=== PATIENT | male | born 1980 | race Caucasian/White ===

== ENCOUNTER 2017-03-09 17:18 | Emergency (ER) | payer MEDICAID, OTHER ==
[~2017-03-09] VITALS: Ht 190.5 cm; Wt 95.0 kg
[~2017-03-09 17:18] MED LIST: DICL50 PO; GABA300C3 PO; ROBA750T3 PO
[2017-03-09 17:20] VITALS: BP 130/82; PULSE 84; RESP 20; TEMP 98.7; O2SAT 99
--- NOTE | 2017-03-09 17:50 | PD ---
HPI Chief Complaint: Eye Problems/Injury Time Seen by Provider: 17:44 Travel History International Travel<30 days: No Contact w/Intl Traveler<30days: No Traveled to known affect area: No History of Present Illness HPI Patient comes in complaining of left upper eyelid pain and swelling began around 11:00 this morning. Patient denies any known injury or foreign body sensation. Patient states he tried using [id number] eyedrops/irrigation has been rubbing his eyelid a lot. Describes pain as a burning like sensation in his upper eyelid without radiation. Patient reports intermittent blurriness in his vision. Pain is worse with palpation. Patient also has concerns over pain in his right hand palmar aspect proximally that he awoke with this morning. Patient describes pain as a "weird pain" that is worse with making a fist with his right hand. Denies any radiation of pain. Denies any known injury. Denies any fevers. Denies any numbness or tingling. PFSH Past Medical History Blood Disorders: No Cancer: No Cardiovascular Problems: No Diabetes: No Diminished Hearing: No Endocrine: No Gastrointestinal Disorders: No Genitourinary: No Hepatitis: Yes (HEP C - completed Interferon Tx through per pt.) Hiatal Hernia: No Hypertension: Yes Immune Disorder: No Musculoskeletal: No Neurologic: No Psychiatric: No Reproductive: No Respiratory: No Thyroid Disease: No Past Surgical History Abdominal Surgery: Yes (HERNIA REPAIR) Cardiac Surgery: No Ear Surgery: No Endocrine Surgery: No Eye Surgery: No Genitourinary Surgery: Yes (TESTICULAR TORSION REPAIR - age 14) Gynecologic Surgery: No Neurologic Surgery: No Oral Surgery: No Thoracic Surgery: No Other Surgery: Yes Social History Alcohol Use: No Tobacco Use: Yes (1 PPD) Substance Use: No (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 SKIN: Focused skin assessment warm and dry. HEAD: Atraumatic. Normocephalic. EYES: Pupils equal and round. EOMI. No scleral icterus. No injection or drainage. Mild edema and erythematous left upper eyelid. Eyelid was inverted there is no foreign body. There is no abscess. ENT: No nasal bleeding or discharge. Mucous membranes pink and moist. NECK: Trachea midline. Supple. No nuclear rigidity. CARDIOVASCULAR: Radial pulses 2+ contact, equal bilaterally. Capillary refill less than 2 seconds. RESPIRATORY: No accessory muscle use. No respiratory distress. MUSCULOSKELETAL: No obvious deformities. No clubbing. No cyanosis. No edema. Full range of motion. Wrist: FROM and equal BL with passive flexion, extension, and pronation/supination. Capillary refill less than 2 seconds distal to injury and equal BL. FROM distal to injury and equal BL. Strength distal to injury equal BL. NV intact distal to injury. Flexion and extension of thumb equal BL. Equal strength and movement with abduction/adductions of BL fingers. Wireless Sales Manager strength equal BL. No tenderness to the anatomical snuffbox. Patient reports tenderness to palpation palmar surface of right hand proximally. There is no erythematous, crepitus, or induration. No obvious wound. NEUROLOGICAL: Awake and alert. No obvious cranial nerve deficits. Motor grossly within normal limits. Normal speech. PSYCHIATRIC: Appropriate mood and affect; insight and judgment normal. Data Data Last Documented VS Vital Signs Date Time Temp Pulse Resp B/P Pulse Ox O2 Delivery O2 Flow Rate FiO2 03/09/17 17:20 98.7 84 20 130/82 99 Room Air MDM Medical Decision Making Medical Screen Exam Complete: Yes Emergency Medical Condition: Yes Differential Diagnosis Conjunctivitis, stye, blepharitis, periorbital cellulitis, fracture, sprain, contusion, other Narrative Course No evidence of foreign body by history or exam. No history to suspect corneal ulceration as well. There is no evidence of iritis, glaucoma, preseptal cellulitis, periorbital or orbital cellulitis. Will place patient on ophthalmologic antibiotics for sinus. This was discussed with the patient. The patient was instructed to follow up with their sales route driver helper or return here if worsened, increased pain, decreased vision, swelling around the eye or as needed. The patient agreed with plan. There is no clinical evidence for fracture. There is no clinical evidence to suspect bony injury by exam. No obvious ligamental injury or internal derangement is noted at this time. The distal extremity appears neurovascularly intact, without evidence of neurovascular injury nor compartment syndrome. Tendon exam also was intact. The effected limb was splinted. The patient was discharged and given warnings for vascular compromise. The patient is to follow up with hand surgeon. The patient agrees with plan. Patient in no obvious distress upon re-evaluation. Patient was offered x-rays but has declined at this time. Patient was asked if they wanted to speak to my attending, which the patient did not wish to do at this time. I discussed patient with Dr. Russ prior discharge, who is in agreement with plan of care and disposition. Any questions/concerns in reference to patient diagnosis/ condition discussed and clarified prior to patient's discharge. Reinforced sheer importance of close follow up with patient's primary physician or primary care clinic, sales route driver helper, and hand surgeon. Instructed patient to return to ED immediately, if symptoms return/worsen. Pt showed understanding of above instructions. Further instructions and recommendations were detailed in discharge paperwork. Pt ambulated without difficulty out of ED at discharge. Diagnosis Primary Impression: Blepharitis of eyelid of left eye Qualified Code: H01.004 - Blepharitis of left upper eyelid, unspecified type Additional Impression: Right hand pain Referrals: Vianey Warren MD, Nishita MD Patient Instructions: Blepharitis (ED), General Instructions, Hand Sprain (ED) Additional Instructions: Follow-up with your primary care physician, sales route driver helper, and/or hand surgeon to 5 days for reevaluation. Take all medication as prescribed. Use [id number] Tylenol and/or ibuprofen as needed for pain. Follow instructions on the packaging. Apply ice to hand 20 minutes per hour as needed for pain. Wash affected eye 3-4 times daily or more using baby shampoo. Return to the emergency department if symptoms get worse. Med/Other Pt SpecificInfo: Prescription(s) given Scripts Erythromycin Opth Oint 5 Mg/Gm Oint1 Applic LEFT EYE QID #1 TUBE Ref 0 Prov:Taniya Russ MD 03/09/17 Disposition: 01 DISCHARGE HOME Condition: Stable Velasquez Zimmerman March 09, 2017 17:50
[2017-03-09] MEDS ORDERED: ERYTOIN10 LEFT EYE (17:51)
== END 2017-03-09 18:16 | disposition home or self-care (01) ==
LOC: NEPD 17:18
DX: H01.004 Unspecified blepharitis left upper eyelid (principal); M79.641 Pain in right hand; I10 Essential (primary) hypertension; F17.210 Nicotine dependence, cigarettes, uncomplicated
CPT/HCPCS: 99283

== ENCOUNTER 2017-06-10 17:44 | Emergency (ER) | payer SELFPAY ==
[~2017-06-10] VITALS: Ht 190.5 cm; Wt 90.9 kg
[~2017-06-10 17:44] MED LIST changes: +ERYTOIN10 LEFT EYE
[2017-06-10 17:48] VITALS: BP 180/99; PULSE 97; RESP 20; TEMP 97.8; O2SAT 99
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
== END 2017-06-10 18:47 | disposition left against medical advice (07) ==
LOC: NEPK 17:44
DX: M54.89 Other dorsalgia (principal); M62.830 Muscle spasm of back
CPT/HCPCS: 99281

== ENCOUNTER 2017-07-28 14:20 | Emergency (ER) | payer SELFPAY ==
[~2017-07-28] VITALS: Ht 188 cm; Wt 92.0 kg
[2017-07-28 14:32] VITALS: BP 145/89; PULSE 86; RESP 16; TEMP 98.5; O2SAT 100
--- NOTE | 2017-07-28 15:03 | PD ---
HPI Chief Complaint: Psychiatric Symptoms Time Seen by Provider: 14:55 Travel History International Travel<30 days: No Contact w/Intl Traveler<30days: No Traveled to known affect area: No History of Present Illness HPI 37-year-old male presents to emergency department a an exparte for psychiatric evaluation. Patient states that he has been smoking and injecting the drug that he can get his hands on. He states he is unable to sleep and has become increasingly anxious. His family was concerned due to his lack of care for himself that he was going to harm himself. Patient denies suicidal or homicidal ideations. States that he is tired of his addiction. Denies any acute medical needs at this time. He is requesting to lay down and have something. He has no other symptoms to report. PFSH Past Medical History Blood Disorders: No Cancer: No Cardiovascular Problems: No Diabetes: No Diminished Hearing: No Endocrine: No Gastrointestinal Disorders: No Genitourinary: No Hepatitis: Yes (HEP C - completed Interferon Tx through per pt.) Hiatal Hernia: No Hypertension: Yes Immune Disorder: No Musculoskeletal: No Neurologic: No Psychiatric: No Reproductive: No Respiratory: No Thyroid Disease: No Past Surgical History Abdominal Surgery: Yes (HERNIA REPAIR) Cardiac Surgery: No Ear Surgery: No Endocrine Surgery: No Eye Surgery: No Genitourinary Surgery: Yes (TESTICULAR TORSION REPAIR - age 14) Gynecologic Surgery: No Neurologic Surgery: No Oral Surgery: No Thoracic Surgery: No Other Surgery: Yes Social History Alcohol Use: Yes Tobacco Use: Yes (1 PPD) 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 SKIN: Focused skin assessment warm/dry. Multiple track xavier and scabbed lesions on the extremities. HEAD: Atraumatic. Normocephalic. EYES: Pupils equal and round. No scleral icterus. Bilateral scleral injection. ENT: No nasal bleeding or discharge. Mucous membranes pink and moist. NECK: Trachea midline. No JVD. CARDIOVASCULAR: Regular rate and rhythm. No murmur appreciated. RESPIRATORY: No accessory muscle use. Clear to auscultation. Breath sounds equal bilaterally. GASTROINTESTINAL: Abdomen soft, non-tender, nondistended. Hepatic and splenic margins not palpable. MUSCULOSKELETAL: No obvious deformities. No clubbing. No cyanosis. No edema. NEUROLOGICAL: Awake and alert. No obvious cranial nerve deficits. Motor grossly within normal limits. Normal speech. Data Data Last Documented VS Vital Signs Date Time Temp Pulse Resp B/P (MAP) Pulse Ox O2 Delivery O2 Flow Rate FiO2 07/28/17 18:18 79 18 129/79 (96) 98 Room Air 07/28/17 14:32 98.5 Orders Orders Complete Blood Count With Diff (07/28/17 14:40) Psych Screen (07/28/17 14:40) Drug Screen, Random Urine (07/28/17 14:40) Basic Metabolic Panel (Bmp) (07/28/17 14:55) Diet Regular Basic (07/28/17 Lunch) Alcohol (Ethanol) (07/28/17 16:05) Potassium Chloride (Kcl) (07/28/17 17:15) Labs Laboratory Tests Test 07/28/17 16:00 07/28/17 16:05 Urine Opiates Screen POS Urine Barbiturates Screen NEG Urine Amphetamines Screen POS Urine Benzodiazepines Screen POS Urine Cocaine Screen POS Urine Cannabinoids Screen POS White Blood Count 7.5 TH/MM3 Red Blood Count 5.26 MIL/MM3 Hemoglobin 16.0 GM/DL Hematocrit 46.0 % Mean Corpuscular Volume 87.5 FL Mean Corpuscular Hemoglobin 30.4 PG Mean Corpuscular Hemoglobin Concent 34.7 % Red Cell Distribution Width 13.4 % Platelet Count 250 TH/MM3 Mean Platelet Volume 8.2 FL Neutrophils (%) (Auto) 51.9 % Lymphocytes (%) (Auto) 32.1 % Monocytes (%) (Auto) 13.2 % Eosinophils (%) (Auto) 1.8 % Basophils (%) (Auto) 1.0 % Neutrophils # (Auto) 3.9 TH/MM3 Lymphocytes # (Auto) 2.4 TH/MM3 Monocytes # (Auto) 1.0 TH/MM3 Eosinophils # (Auto) 0.1 TH/MM3 Basophils # (Auto) 0.1 TH/MM3 CBC Comment DIFF FINAL Differential Comment Blood Urea Nitrogen 10 MG/DL Creatinine 0.84 MG/DL Random Glucose 110 MG/DL Calcium Level 8.7 MG/DL Sodium Level 137 MEQ/L Potassium Level 3.3 MEQ/L Chloride Level 100 MEQ/L Carbon Dioxide Level 31.1 MEQ/L Anion Gap 6 MEQ/L Estimat Glomerular Filtration Rate 104 ML/MIN Ethyl Alcohol Level LESS THAN 3 MG/DL MDM Medical Decision Making Medical Screen Exam Complete: Yes Emergency Medical Condition: Yes Medical Record Reviewed: Yes Differential Diagnosis Mood disorder versus personality disorder versus adjustment reaction disorder Narrative Course 37-year-old male presents to emergency department for evaluation. Patient appears agitated and anxious. He denies suicidal or homicidal ideations. Vital signs are stable. Laboratory Tests Test 07/28/17 16:00 07/28/17 16:05 Urine Opiates Screen POS Urine Barbiturates Screen NEG Urine Amphetamines Screen POS Urine Benzodiazepines Screen POS Urine Cocaine Screen POS Urine Cannabinoids Screen POS White Blood Count 7.5 TH/MM3 Red Blood Count 5.26 MIL/MM3 Hemoglobin 16.0 GM/DL Hematocrit 46.0 % Mean Corpuscular Volume 87.5 FL Mean Corpuscular Hemoglobin 30.4 PG Mean Corpuscular Hemoglobin Concent 34.7 % Red Cell Distribution Width 13.4 % Platelet Count 250 TH/MM3 Mean Platelet Volume 8.2 FL Neutrophils (%) (Auto) 51.9 % Lymphocytes (%) (Auto) 32.1 % Monocytes (%) (Auto) 13.2 % Eosinophils (%) (Auto) 1.8 % Basophils (%) (Auto) 1.0 % Neutrophils # (Auto) 3.9 TH/MM3 Lymphocytes # (Auto) 2.4 TH/MM3 Monocytes # (Auto) 1.0 TH/MM3 Eosinophils # (Auto) 0.1 TH/MM3 Basophils # (Auto) 0.1 TH/MM3 CBC Comment DIFF FINAL Differential Comment Blood Urea Nitrogen 10 MG/DL Creatinine 0.84 MG/DL Random Glucose 110 MG/DL Calcium Level 8.7 MG/DL Sodium Level 137 MEQ/L Potassium Level 3.3 MEQ/L Chloride Level 100 MEQ/L Carbon Dioxide Level 31.1 MEQ/L Anion Gap 6 MEQ/L Estimat Glomerular Filtration Rate 104 ML/MIN Ethyl Alcohol Level LESS THAN 3 MG/DL Patient is medically cleared to undergo psychiatric screening for further evaluation and disposition. Mental health screening discussed with the patient. Psychiatric screen ordered. Diagnosis Primary Impression: Polysubstance (excluding opioids) dependence Scripts No Active Prescriptions or Reported Meds Condition: Lianna Flores Jul 28, 2017 15:03
[2017-07-28 16:32] LABS: AUTOMATED NEUTROPHIL # 3.9 TH/MM3 (1.8-7.7); BASOPHIL # 0.1 TH/MM3 (0-0.2); EOSINOPHIL # 0.1 TH/MM3 (0-0.4); EOSINOPHIL % 1.8 % (0.0-4.0); HEMO FLAGS DIFF FINAL; LYMPH % 32.1 % (9.0-44.0); LYMPHOCYTE # 2.4 TH/MM3 (1.0-4.8); MEAN CELL VOLUME 87.5 FL (80.0-100.0); MEAN CORPUSCULAR HEMOGLOBIN 30.4 PG (27.0-34.0); MEAN CORPUSCULAR HGB CONC 34.7 % (32.0-36.0); MONO % 13.2 % (0.0-8.0); NEUT % 51.9 % (16.0-70.0); PLATELET COUNT 250 TH/MM3 (150-450); RED BLOOD COUNT 5.26 MIL/MM3 (4.50-5.90); RED CELL DISTRIBUTION WIDTH 13.4 % (11.6-17.2); WHITE BLOOD COUNT 7.5 TH/MM3 (4.0-11.0)
[2017-07-28 16:50] LABS: ANION GAP 6 MEQ/L (5-15); BICARBONATE 31.1 MEQ/L (21.0-32.0); BLOOD UREA NITROGEN 10 MG/DL (7-18); CHLORIDE 100 MEQ/L (98-107); GLOMERULAR FILTRATION RATE 104 ML/MIN (>89); POTASSIUM 3.3 MEQ/L (3.5-5.1); SODIUM (NA) 137 MEQ/L (136-145)
[2017-07-28 17:04] LABS: ALCOHOL LESS THAN 3 MG/DL (0-5)
[2017-07-28] MEDS ORDERED: POTASSIUM CHLORIDE 10 MEQ CONTROLLED RELEASE TAB PO ONE (17:15)
[2017-07-28 17:17] VITALS: BP 145/85; PULSE 90; RESP 14; O2SAT 100
[2017-07-28 18:06] VITALS: BP 145/83
[2017-07-28 18:18] VITALS: BP 129/79; PULSE 79; RESP 18; O2SAT 98
[2017-07-28 22:16] VITALS: BP 121/70; PULSE 75; RESP 17; O2SAT 99
[2017-07-29 02:30] VITALS: BP 153/90; PULSE 90; RESP 20; O2SAT 99
[2017-07-29 06:35] VITALS: BP 142/92; PULSE 87; RESP 18; TEMP 98.6; O2SAT 99
[2017-07-29] MEDS ORDERED: LORazepam 1 MG TAB PO PRN (10:30)
[2017-07-29] MEDS ORDERED: FLUMAZENIL 0.5 MG/5 ML VIAL IV PUSH PRN (10:30)
[2017-07-29] MEDS ORDERED: LORazepam 2 MG/ML VIAL IV PUSH PRN ×4 (10:30)
[2017-07-29] MEDS ORDERED: HALOPERIDOL LACTATE 5 MG/ML AMP IM PRN (10:30)
[2017-07-29] MEDS: LORazepam 2 MG TAB PO PRN ×3 (10:38→22:36)
[2017-07-29 11:18] VITALS: BP 159/77; PULSE 82; RESP 17; TEMP 98.6; O2SAT 100
[2017-07-29 18:21] VITALS: BP 180/104; PULSE 80; RESP 17; TEMP 98.8; O2SAT 100
[2017-07-29 22:20] VITALS: BP 186/94; PULSE 103; RESP 18; O2SAT 96
[2017-07-30] MEDS: LORazepam 2 MG TAB PO PRN (01:20)
[2017-07-30 02:16] VITALS: BP 165/90; PULSE 98; RESP 18; O2SAT 99
[2017-07-30 06:32] VITALS: BP 162/92; PULSE 86; RESP 17; O2SAT 100
[2017-07-30 11:18] VITALS: BP 172/85; PULSE 85; RESP 17; O2SAT 97
--- NOTE | 2017-07-30 12:12 | PD ---
Physical Exam Date Seen by Provider: Jul 30, 2017 Time Seen by Provider: 12:09 Narrative Patient medically cleared for [place] with psych evaluation. Patient was cleared by psychiatric staff. He is felt to be stable for discharge. Patient is medically stable for discharge to follow-up with Alfredo Lopez. Data Data Last Documented VS Vital Signs Date Time Temp Pulse Resp B/P (MAP) Pulse Ox O2 Delivery O2 Flow Rate FiO2 07/30/17 11:18 85 17 172/85 (114) 97 07/29/17 18:21 98.8 Room Air Orders Orders Complete Blood Count With Diff (07/28/17 14:40) Psych Screen (07/28/17 14:40) Drug Screen, Random Urine (07/28/17 14:40) Basic Metabolic Panel (Bmp) (07/28/17 14:55) Diet Regular Basic (07/28/17 Lunch) Alcohol (Ethanol) (07/28/17 16:05) Potassium Chloride (Kcl) (07/28/17 17:15) Diet Regular Basic (07/29/17 Breakfast) Diet Regular Basic (07/29/17 Lunch) Alcohol Withdrawal Asmt-Ciwa Q4HX18 (07/29/17 10:26) Flumazenil Inj (Romazicon Inj) (07/29/17 10:30) Lorazepam (Ativan) (07/29/17 10:30) Lorazepam Inj (Ativan Inj) (07/29/17 10:30) Lorazepam (Ativan) (07/29/17 10:30) Lorazepam Inj (Ativan Inj) (07/29/17 10:30) Lorazepam Inj (Ativan Inj) (07/29/17 10:30) Lorazepam Inj (Ativan Inj) (07/29/17 10:30) Haloperidol Inj (Haldol Inj) (07/29/17 10:30) Diet Regular Basic (07/29/17 Dinner) Diet Regular Basic (07/30/17 Breakfast) Diet Regular Basic (07/30/17 Lunch) Labs Laboratory Tests Test 07/28/17 16:00 07/28/17 16:05 Urine Opiates Screen POS Urine Barbiturates Screen NEG Urine Amphetamines Screen POS Urine Benzodiazepines Screen POS Urine Cocaine Screen POS Urine Cannabinoids Screen POS White Blood Count 7.5 TH/MM3 Red Blood Count 5.26 MIL/MM3 Hemoglobin 16.0 GM/DL Hematocrit 46.0 % Mean Corpuscular Volume 87.5 FL Mean Corpuscular Hemoglobin 30.4 PG Mean Corpuscular Hemoglobin Concent 34.7 % Red Cell Distribution Width 13.4 % Platelet Count 250 TH/MM3 Mean Platelet Volume 8.2 FL Neutrophils (%) (Auto) 51.9 % Lymphocytes (%) (Auto) 32.1 % Monocytes (%) (Auto) 13.2 % Eosinophils (%) (Auto) 1.8 % Basophils (%) (Auto) 1.0 % Neutrophils # (Auto) 3.9 TH/MM3 Lymphocytes # (Auto) 2.4 TH/MM3 Monocytes # (Auto) 1.0 TH/MM3 Eosinophils # (Auto) 0.1 TH/MM3 Basophils # (Auto) 0.1 TH/MM3 CBC Comment DIFF FINAL Differential Comment Blood Urea Nitrogen 10 MG/DL Creatinine 0.84 MG/DL Random Glucose 110 MG/DL Calcium Level 8.7 MG/DL Sodium Level 137 MEQ/L Potassium Level 3.3 MEQ/L Chloride Level 100 MEQ/L Carbon Dioxide Level 31.1 MEQ/L Anion Gap 6 MEQ/L Estimat Glomerular Filtration Rate 104 ML/MIN Ethyl Alcohol Level LESS THAN 3 MG/DL MDM Medical Record Reviewed: Yes Supervised Visit with NASIR: Yes Narrative Course Patient medically cleared for [place] with psych evaluation. Patient was cleared by psychiatric staff. He is felt to be stable for discharge. Patient is medically stable for discharge to follow-up with Alfredo Lopez. Diagnosis Primary Impression: Polysubstance (excluding opioids) dependence Referrals: [facility] Patient Instructions: General Instructions Med/Other Pt SpecificInfo: No Meds Exist/No RX given Scripts No Active Prescriptions or Reported Meds Disposition: DISCHARGE HOME Condition: Stable Steffen Marcelino Jul 30, 2017 12:12
--- NOTE | 2017-07-30 12:22 | PD.PSY.CON ---
Provisional Diagnosis Admission Date [place] I. Polysubstance abuse F 19.10 History of Present Illness Service Psychiatry Consult Requested By EDMD Reason for Consult Medical clearance per act Primary Care Physician Unknown HPI Patient is a 37-year-old white male comes here under act initiated by his mother. Asked to see for medical clearance. Patient seen screened in the ED. Urine toxicology positive for opiates and amphetamines benzodiazepines cocaine and marijuana. He denies suicidality homicidality voices or visions. Denies any unique specific inpatient psychiatric hospitalization. He is aware of his addictions. Is aware [place] and his need for appearance in [place] court. Patient does not meet criteria for the [place] act for inpatient psychiatric care. Thus will mental health standpoint he is medically cleared for discharge to follow-up through [employer] act court Review of Systems Except as stated in HPI: all other systems reviewed are Neg Past Family Social History Coded Allergies: No Known Allergies (Verified , 09/12/15) Past Medical History medically cleared ED Discontinued Scripts Erythromycin Opth Oint (Erythromycin Opth Oint) 5 Mg/Gm Oint, 1 APPLIC LEFT EYE QID for Infection, #1 TUBE 0 Refills Prov:Taniya Russ MD 03/09/17 Current Medications Medications (Trade) Dose Ordered Sig/Isaias Route Start Time Stop Time Status Last Admin (Romazicon Inj) 0.2 mg Q1M PRN IV PUSH 07/29/17 10:30 (Ativan) 1 mg Q4H PRN PO 07/29/17 10:30 07/29/17 18:33 (Ativan Inj) 1 mg Q4H PRN IV PUSH 07/29/17 10:30 (Ativan) 2 mg Q2H PRN PO 07/29/17 10:30 07/30/17 01:20 (Ativan Inj) 2 mg Q2H PRN IV PUSH 07/29/17 10:30 (Ativan Inj) 2 mg Q1H PRN IV PUSH 07/29/17 10:30 (Ativan Inj) 2 mg Q15M PRN IV PUSH 07/29/17 10:30 (Haldol Inj) 2 mg Q15M PRN IM 07/29/17 10:30 Family Psych History Patient denies Social History Patient homeless has supportive family Patient's Strengths (min. 2) Patient verbal irritable [facility] health care Physical Exam Patient medically cleared ED Vital Signs Vital Signs Date Time Temp Pulse Resp B/P (MAP) Pulse Ox O2 Delivery O2 Flow Rate FiO2 07/30/17 11:18 85 17 172/85 (114) 97 07/29/17 18:21 98.8 Room Air Mental Status Examination Appearance: Appropriate Consciousness: Alert Orientation: x4 Motor Activity: Normal gait Speech: Unremarkable Language: Adequate Fund of Knowledge: Adequate Attention and Concentration: Adequate Memory: Unremarkable Mood: Appropriate Affect: Appropriate Thought Process & Associations: Intact Thought Content: Appropriate Hallucination Type: None Delusion Type: None Suicidal Ideation: No Suicidal Plan: No Suicidal Intention: No Homicidal Ideation: No Homicidal Plan: No Homicidal Intention: No Insight: Poor Judgment: Poor Assessment & Plan Problem List: (1) Polysubstance abuse ICD Codes: F19.10 - Other psychoactive substance abuse, uncomplicated Assessment & Plan Estimated LOS: days patient medically cleared psychiatrically. It is okay by psych for discharge. Patient to respect and follow-up instructions in the [place] act papers Discharge Planning See above Request HC Surrog/Guard Advoc?: No Piotr Velasquez MD Jul 30, 2017 12:22
== END 2017-07-30 13:32 | disposition home or self-care (01) ==
LOC: NEPD 14:20 → NEPJ 07-30 13:32
DX: F19.20 Other psychoactive substance dependence, uncomplicated (principal); I10 Essential (primary) hypertension; Z72.0 Tobacco use
CPT/HCPCS: 80048; 80307; 85025; 99284

== ENCOUNTER 2017-08-28 14:57 | Inpatient (IN) | payer SELFPAY ==
[~2017-08-28] VITALS: Ht 190.5 cm; Wt 91.0 kg
[2017-08-28 14:59] VITALS: BP 159/90; PULSE 109; RESP 18; TEMP 99.7; O2SAT 96
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
[2017-08-28 17:45] VITALS: O2SAT 97
[2017-08-28] MEDS ORDERED: VANCOMYCIN INJ 1,750 MG in SODIUM CHLORID 0.9% 500 ML INJ 500 ML IV ONE (17:45)
[2017-08-28] MEDS ORDERED: ACETAMINOPHEN/HYDROcodone 325 MG/7.5 MG TAB PO ONE (18:15)
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
[2017-08-28 18:26] LABS: AUTOMATED NEUTROPHIL # 7.9 TH/MM3 (1.8-7.7); BASOPHIL % 0.4 % (0.0-2.0); EOSINOPHIL # 0.2 TH/MM3 (0-0.4); EOSINOPHIL % 1.3 % (0.0-4.0); HEMATOCRIT 41.2 % (39.0-51.0); HEMO FLAGS DIFF FINAL; LYMPH % 22.9 % (9.0-44.0); LYMPHOCYTE # 2.7 TH/MM3 (1.0-4.8); MEAN CELL VOLUME 86.8 FL (80.0-100.0); MEAN CORPUSCULAR HEMOGLOBIN 29.6 PG (27.0-34.0); MEAN CORPUSCULAR HGB CONC 34.1 % (32.0-36.0); MONO % 9.5 % (0.0-8.0); NEUT % 65.9 % (16.0-70.0); PLATELET COUNT 242 TH/MM3 (150-450); RED BLOOD COUNT 4.75 MIL/MM3 (4.50-5.90)
[2017-08-28 18:39] LABS: ALT (GPT) 38 U/L (12-78); ANION GAP 7 MEQ/L (5-15); AST (GOT) 19 U/L (15-37); BLOOD UREA NITROGEN 11 MG/DL (7-18); CHLORIDE 98 MEQ/L (98-107); GLOMERULAR FILTRATION RATE 122 ML/MIN (>89); POTASSIUM 3.1 MEQ/L (3.5-5.1); SODIUM (NA) 137 MEQ/L (136-145)
[2017-08-28 18:42] LABS: ALKALINE PHOSPHATASE 128 U/L (45-117); TOTAL BILIRUBIN ADULT 0.4 MG/DL (0.2-1.0)
[2017-08-28] MEDS ORDERED: ACETAMINOPHEN 500 MG CPLT PO PRN (19:45)
[2017-08-28] MEDS ORDERED: SODIUM CHLORIDE 0.9% FLUSH 10 ML FLUSH IV FLUSH PRN (19:45)
[2017-08-28] MEDS ORDERED: Vancomycin Consult Pharmacy 1 EA OTHER SCH (19:45)
[2017-08-28] MEDS ORDERED: POTASSIUM CHLORIDE 20 MEQ CONTROLLED RELEASE TAB PO ONE (21:15)
[2017-08-28 21:21] LABS: BLOOD, URINE NEG (NEG); GLUCOSE,URINE NEG (NEG); KETONE, URINE NEG (NEG); MUCUS URINE MANY /lpf (OCC); NITRITE,URINE NEG (NEG); SQUAMOUS EPITHELIAL CELL URINE <1 /hpf (0-5); URINE COLOR YELLOW (YELLW/STRAW)
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
[2017-08-28 21:42] LABS: COMMENT (UR) CATH-CULT NOT IND; CULTURE IF INDICATED CATH CULTURE NOT IND
[2017-08-28] MEDS ORDERED: LORazepam 1 MG TAB PO PRN (21:45)
[2017-08-28] MEDS ORDERED: LORazepam 2 MG TAB PO PRN (21:45)
[2017-08-28] MEDS ORDERED: FLUMAZENIL 0.5 MG/5 ML VIAL IV PUSH PRN (21:45)
[2017-08-28] MEDS ORDERED: LORazepam 2 MG/ML VIAL IV PUSH PRN ×4 (21:45)
[2017-08-28] MEDS: ACETAMINOPHEN/HYDROcodone 325 MG/5 MG TAB PO PRN (22:30)
[2017-08-28] MEDS: SODIUM CHLORIDE 0.9% FLUSH 10 ML FLUSH IV FLUSH SCH (23:11)
[2017-08-28] MEDS: NS + KCL 20 MEQ INJ 1,000 ML IV SCH (23:12)
[2017-08-28 23:23] VITALS: BP 169/89; PULSE 87; RESP 18; TEMP 98.4; O2SAT 98
[2017-08-29 00:11] VITALS: BP 123/69; PULSE 97; RESP 18; TEMP 98.6; O2SAT 97
[2017-08-29 03:00] VITALS: BP 155/113; PULSE 88; RESP 18; TEMP 98.4; O2SAT 96
[2017-08-29] MEDS: VANCOMYCIN INJ 1,600 MG in SODIUM CHLORID 0.9% 500 ML INJ 500 ML IV SCH ×3 (03:18→19:55)
[2017-08-29] MEDS: ACETAMINOPHEN/HYDROcodone 325 MG/5 MG TAB PO PRN ×2 (03:22→08:10)
[2017-08-29] MEDS: NS + KCL 20 MEQ INJ 1,000 ML IV SCH ×2 (05:37→16:25)
[2017-08-29 07:42] VITALS: BP 149/84; PULSE 88; RESP 24; TEMP 98.7; O2SAT 95
[2017-08-29] MEDS: SODIUM CHLORIDE 0.9% FLUSH 10 ML FLUSH IV FLUSH SCH ×2 (08:20→19:55)
[2017-08-29 09:20] LABS: AUTOMATED NEUTROPHIL # 5.7 TH/MM3 (1.8-7.7); BASOPHIL % 0.5 % (0.0-2.0); EOSINOPHIL # 0.4 TH/MM3 (0-0.4); EOSINOPHIL % 4.3 % (0.0-4.0); HEMATOCRIT 36.5 % (39.0-51.0); HEMO FLAGS DIFF FINAL; LYMPH % 25.5 % (9.0-44.0); LYMPHOCYTE # 2.5 TH/MM3 (1.0-4.8); MEAN CELL VOLUME 87.2 FL (80.0-100.0); MEAN CORPUSCULAR HEMOGLOBIN 29.8 PG (27.0-34.0); MEAN CORPUSCULAR HGB CONC 34.1 % (32.0-36.0); NEUT % 58.7 % (16.0-70.0); PLATELET COUNT 220 TH/MM3 (150-450); RED BLOOD COUNT 4.19 MIL/MM3 (4.50-5.90); RED CELL DISTRIBUTION WIDTH 12.9 % (11.6-17.2); WHITE BLOOD COUNT 9.7 TH/MM3 (4.0-11.0)
[2017-08-29 09:47] LABS: BICARBONATE 28.7 MEQ/L (21.0-32.0); POTASSIUM 3.6 MEQ/L (3.5-5.1)
--- NOTE | 2017-08-29 10:30 | HHI.PR ---
Subjective Remarks Follow up for bilateral upper ext cellulitis. Patient currently complains of pain. No fever, chills. Mother at bedside. Objective Vitals Vital Signs Date Time Temp Pulse Resp B/P (MAP) Pulse Ox O2 Delivery O2 Flow Rate FiO2 08/29/17 07:42 98.7 88 24 149/84 (105) 95 08/29/17 03:00 98.4 88 18 155/113 (127) 96 08/29/17 00:11 98.6 97 18 123/69 (87) 97 08/28/17 23:23 98.4 87 18 169/89 (115) 98 08/28/17 20:48 08/28/17 17:47 18 08/28/17 17:45 97 Nasal Cannula 2.00 08/28/17 17:45 97 Nasal Cannula 2.00 08/28/17 14:59 99.7 109 18 159/90 (113) 96 Room Air I/O 08/28/17 08/28/17 08/28/17 08/29/17 08/29/17 08/29/17 07:00 15:00 23:00 07:00 15:00 23:00 Intake Total 120 ml Balance 120 ml Intake Oral 120 ml # Voids 1 1 # Bowel Movements 0 Result Diagram: 08/29/17 0842 08/29/17 0842 Imaging Last Impressions Upper Extremity CT 08/29/17 0000 Signed Impressions: Service Date/Time: Tuesday, August 29, 2017 10:48 - CONCLUSION: Cellulitis without abscess.. This this could easily be followed by ultrasound. Nils Jovel MD FACR Shoulder X-Ray 08/28/17 0000 Signed Impressions: Service Date/Time: Monday, August 28, 2017 17:54 - CONCLUSION: Unremarkable examination of the left shoulder. Forest Adkins MD Chest X-Ray 08/28/17 0000 Signed Impressions: Service Date/Time: Monday, August 28, 2017 17:52 - CONCLUSION: No evidence of acute cardiopulmonary disease. Piotr Quintanilla MD Objective Remarks GENERAL: AOX3, NAD. SKIN: Warm and dry. LUE extensive swelling, redness, lesions. Pain on palpation. Right upper ext mild erythema, swelling. HEAD: Normocephalic. EYES: No scleral icterus. No injection or drainage. NECK: Supple, trachea midline. No JVD or lymphadenopathy. CARDIOVASCULAR: Regular rate and rhythm without murmurs, gallops, or rubs. RESPIRATORY: Breath sounds equal bilaterally. No accessory muscle use. GASTROINTESTINAL: Abdomen soft, non-tender, nondistended. MUSCULOSKELETAL: No cyanosis, or edema. BACK: Nontender without obvious deformity. No CVA tenderness. Procedures None. A/P Assessment and Plan Mr. De La Rosa is a 37-year-old male with a history of IV drug use who presents to the emergency department on 08/28/2017 due to bilateral upper extremity swelling and redness especially left upper extremity. - Left upper extremity cellulitis - Right upper extremity cellulitis - Left upper extremity cellulitis more pronounced. CT scan did not reveal any abscess. - Continue vancomycin. Appreciate surgery input. - Patient will be kept nothing by mouth after breakfast tomorrow for possible I&D if not improved with antibiotics. -[place], morphine for pain management - Follow blood culture results. - Hypokalemia - potassium 3.1 on admission. After replacement potassium 3.6 today. - IV drug use - Patient is extensively counseled regarding IV drug use. Patient is motivated to quit his habit. - Hepatitis C - outpatient management Full code. Ambulation Raquel Quintanilla DO Aug 29, 2017 10:30
[2017-08-29] MEDS ORDERED: IOHEXOL 350 MG/ML 10 ML VIAL (for RAD DIAG) IVCONTRAST ONE (11:08)
--- NOTE | 2017-08-29 11:18 | RADRPT ---
EXAM DATE/TIME: 08/29/2017 10:48 [facility] COMPARISON: No previous studies available for comparison. INDICATIONS : Left arm cellulitis mid forearm. IV CONTRAST: 81 cc Omnipaque 350 (iohexol) IV RADIATION DOSE: 44.88 CTDIvol (mGy) MEDICAL HISTORY : Hepatitis C. SURGICAL HISTORY : None. ENCOUNTER: Initial ACUITY: 1 day PAIN SCALE: 9/10 LOCATION: Left arm TECHNIQUE: Volumetric scanning of the forearm was performed. Using automated exposure control and adjustment of the mA and/or kV according to patient size, radiation dose was kept as low as reasonably achievable to obtain optimal diagnostic quality images. DICOM format image data is available electronically fo r review and comparison. FINDINGS: Mild superficial induration without deep space abscess. There is no osteomyelitis. CONCLUSION: Cellulitis without abscess.. This this could easily be followed by ultrasound. Nils Jovel MD FACR on August 29, 2017 at 11:14 Board Certified Radiologist. This report was verified electronically.
[2017-08-29] MEDS: ACETAMINOPHEN/HYDROcodone 325 MG/10 MG TAB PO PRN ×3 (11:37→22:20)
[2017-08-29 11:42] VITALS: BP 141/81; PULSE 88; RESP 22; TEMP 98.2; O2SAT 97
--- NOTE | 2017-08-29 13:57 | MB ---
cc: JUSTIN AREVALO MD DATE OF CONSULTATION: 08/29/2017 REASON FOR CONSULTATION Bilateral upper extremity cellulitis. HISTORY OF PRESENT ILLNESS The patient is a 37-year-old male with a history of IV drug abuse admitted to the hospital yesterday with multiple lesions over both upper extremities. The patient states he was injecting drugs and noticed multiple lesions involving both upper extremities. He has been getting IV antibiotics since yesterday. The patient complains of one particular location where the pain and swelling has been persistent on the left upper extremity. He also complains of minimal purulent drainage from the lesions. Denies any fever, chills or shortness of breath. PHYSICAL EXAMINATION On examination the patient is alert and oriented x3. Examination of the left upper extremity reveals multiple skin lesions with surrounding erythema involving the forearm and the hand. There is also evidence of lesion over the dorsal lateral aspect of the mid to distal forearm in a linear fashion measuring about 3-4 cm with surrounding swelling and induration. Tenderness is noted over this particular region. No evidence of fluctuation noted. Multiple pustules have purulent material within the scab. Minimal purulent drainage is noted from the lesions. He is able to make a full fist. He has full extension of the fingers. Forearm compartments appear to be supple. He has palpable distal radial and ulnar artery pulses. Examination of the right hand reveals multiple skin lesions with surrounding swelling and erythema. Minimal purulent drainage is noted which appears to be superficial. LABORATORY The patient had blood work done. He had a white count of 12 which has trended down to 9.7 today. IMAGING The patient had a CT scan of the left upper extremity which shows no evidence of collection. It does show evidence of cellulitis of the left upper extremity. ASSESSMENT A 37-year-old male with IV drug abuse and multiple skin lesions with a questionable lesion which has been persistent involving the left forearm. PLAN I do not see any clinical evidence of fluctuation or an abscess. CT scan of the left upper extremity shows no evidence of collection. Will continue with IV antibiotics. Will keep the patient n.p.o. from tomorrow after breakfast for possible incision and drainage if he has no improvement in symptoms. Hand surgery will follow. Justin Arevalo MD SE/MANJU /1:28 PM /1:49 PM
[2017-08-29 15:35] VITALS: BP 138/85; PULSE 95; RESP 22; TEMP 98.9; O2SAT 98
[2017-08-29] MEDS ORDERED: PHARMACY ORDERED LAB ONE (17:45)
[2017-08-29 20:00] VITALS: BP 144/86; PULSE 91; RESP 18; TEMP 98.5; O2SAT 96
[2017-08-29] MEDS: MORPHINE SULFATE 4 MG/ML INJ IV PUSH PRN (20:10)
[2017-08-30] MEDS: MORPHINE SULFATE 4 MG/ML INJ IV PUSH PRN ×2 (00:07→06:44)
[2017-08-30 02:34] VITALS: BP 136/85; PULSE 83; RESP 18; TEMP 97.6; O2SAT 97
[2017-08-30] MEDS: VANCOMYCIN INJ 1,600 MG in SODIUM CHLORID 0.9% 500 ML INJ 500 ML IV SCH ×3 (03:16→18:30)
[2017-08-30] MEDS: NS + KCL 20 MEQ INJ 1,000 ML IV SCH ×3 (03:17→20:46)
[2017-08-30 07:45] VITALS: BP 138/90; PULSE 85; RESP 18; TEMP 98.2; O2SAT 97
[2017-08-30] MEDS: SODIUM CHLORIDE 0.9% FLUSH 10 ML FLUSH IV FLUSH SCH ×2 (09:00→20:45)
[2017-08-30] MEDS: HYDROmorphone HCL PF 1 MG/ML VIAL IV PUSH PRN ×2 (09:43→13:09)
[2017-08-30 11:37] VITALS: BP 139/87; PULSE 79; RESP 18; TEMP 97.5; O2SAT 97
[2017-08-30] MEDS ORDERED: SODIUM CHLORIDE 0.9% 20 ML VIAL IV ONE (12:00)
[2017-08-30] MEDS ORDERED: MORPHINE SULFATE 4 MG/ML INJ IV ONE (12:00)
[2017-08-30] MEDS ORDERED: PROPOFOL 200 MG/20 ML AMP IV ONE (12:00)
[2017-08-30] MEDS ORDERED: LIDOCAINE HCL 1% PF 5 ML AMPULE OTHER ONE (12:00)
[2017-08-30] MEDS ORDERED: ONDANSETRON HCL 4 MG/2 ML VIAL IV PUSH ONE (12:00)
[2017-08-30] MEDS ORDERED: DEXAMETHASONE SOD PHOS 4 MG/ML VIAL IV ONE (12:00)
[2017-08-30] MEDS ORDERED: LACTATED RINGER'S 1000 ML INJ 1,000 ML IV ONE (12:00)
[2017-08-30] MEDS ORDERED: MIDAZOLAM HCL 2 MG/2 ML VIAL IV ONE (12:00)
[2017-08-30 15:21] VITALS: BP 134/85; PULSE 78; RESP 18; TEMP 98.4; O2SAT 99
--- NOTE | 2017-08-30 15:55 | HHI.PR ---
Subjective Remarks Follow up for bilateral upper ext cellulitis, IVDU. Patient complains of significant upper ext pain, toya on the LUE. No fever, chills. Mother at bedside. Objective Vitals Vital Signs Date Time Temp Pulse Resp B/P (MAP) Pulse Ox O2 Delivery O2 Flow Rate FiO2 08/30/17 15:21 98.4 78 18 134/85 (101) 99 08/30/17 11:37 97.5 79 18 139/87 (104) 97 08/30/17 07:49 18 08/30/17 07:45 98.2 85 18 138/90 (106) 97 08/30/17 02:34 97.6 83 18 136/85 (102) 97 08/29/17 20:00 98.5 91 18 144/86 (105) 96 I/O 08/29/17 08/29/17 08/29/17 08/30/17 08/30/17 08/30/17 07:00 15:00 23:00 07:00 15:00 23:00 Intake Total 120 ml 200 ml Balance 120 ml 200 ml Intake Oral 120 ml 200 ml # Voids 1 3 # Bowel Movements 0 Result Diagram: 08/29/17 0842 08/29/17 0842 Imaging Last Impressions Upper Extremity CT 08/29/17 0000 Signed Impressions: Service Date/Time: Tuesday, August 29, 2017 10:48 - CONCLUSION: Cellulitis without abscess.. This this could easily be followed by ultrasound. Nils Jovel MD FACR Shoulder X-Ray 08/28/17 0000 Signed Impressions: Service Date/Time: Monday, August 28, 2017 17:54 - CONCLUSION: Unremarkable examination of the left shoulder. Forest Adkins MD Chest X-Ray 08/28/17 0000 Signed Impressions: Service Date/Time: Monday, August 28, 2017 17:52 - CONCLUSION: No evidence of acute cardiopulmonary disease. Piotr Quintanilla MD Objective Remarks GENERAL: AOX3, NAD. SKIN: Warm and dry. LUE extensive swelling, redness, lesions. Pain on palpation. Right upper ext mild erythema, swelling. HEAD: Normocephalic. EYES: No scleral icterus. No injection or drainage. NECK: Supple, trachea midline. No JVD or lymphadenopathy. CARDIOVASCULAR: Regular rate and rhythm without murmurs, gallops, or rubs. RESPIRATORY: Breath sounds equal bilaterally. No accessory muscle use. GASTROINTESTINAL: Abdomen soft, non-tender, nondistended. MUSCULOSKELETAL: No cyanosis, or edema. BACK: Nontender without obvious deformity. No CVA tenderness. Procedures None. A/P Problem List: (1) Right arm cellulitis ICD Code: L03.113 - Cellulitis of right upper limb (2) Cellulitis of upper extremity ICD Code: L03.119 - Cellulitis of unspecified part of limb (3) Polysubstance abuse ICD Code: F19.10 - Other psychoactive substance abuse, uncomplicated Assessment and Plan Mr. De La Rosa is a 37-year-old male with a history of IV drug use who presents to the emergency department on 08/28/2017 due to bilateral upper extremity swelling and redness especially left upper extremity. - Left upper extremity cellulitis - Right upper extremity cellulitis - Left upper extremity cellulitis more pronounced. CT scan did not reveal any abscess. - Continue vancomycin. Appreciate surgery input. - Patient will be kept nothing by mouth after breakfast tomorrow for possible I&D if not improved with antibiotics. - [place], Dilaudid for pain management - Blood cultures negative. - Surgery likely 08/30/2017. - Hypokalemia - potassium 3.1 on admission. After replacement potassium 3.6 today. - IV drug use - Patient is extensively counseled regarding IV drug use. Patient is motivated to quit his habit. - Hepatitis C - outpatient management Full code. Ambulation Raquel Quintanilla DO Aug 30, 2017 3:55 pm
[2017-08-30] MEDS ORDERED: LIDOCAINE HCL 2% 50 ML VIAL ONE (15:58)
[2017-08-30] MEDS ORDERED: BUPIVACAINE HCL PF 0.5% 30 ML VIAL ONE (15:59)
[2017-08-30] MEDS ORDERED: NEOMYCIN/POLYMYXIN 1 ML G.U. IRRIGANT ONE (16:14)
[2017-08-30] MEDS ORDERED: HYDROmorphone HCL PF 2 MG/ML VIAL ONE (16:42)
[2017-08-30] MEDS ORDERED: ceFAZolin INJ 1,000 MG VIAL ONE (16:54)
[2017-08-30] MEDS ORDERED: *morphine SULFATE 8 MG/ML PERIprocedure ONLY ONE (18:11)
[2017-08-30] MEDS ORDERED: *MEPERIDINE 25 MG INJ VIAL PERIprocedural Use ONLY ONE (18:16)
--- NOTE | 2017-08-30 18:19 | PD.OP ---
Operative Report Preoperative Diagnosis: (1) Abscess of left forearm Postoperative Diagnosis: (1) Abscess of left forearm Procedure: incision, drainage and debridement left forearm abscess Anesthesia: general Surgeon: Jakob Watson Food Service Technician(s): wei Operation and Findings: abscess cavity with necrotic subcutaneous tissue and thrombosed vein left [facility] Jakob Watson MD Aug 30, 2017 18:19
[2017-08-30] MEDS ORDERED: *HYDROmorphone PF 1 MG VIAL PERIprocedural Use ONLY ONE (18:30)
--- NOTE | 2017-08-30 19:41 | HHI.PR ---
Subjective Remarks NOT SEEN Objective Vitals Vital Signs Date Time Temp Pulse Resp B/P (MAP) Pulse Ox O2 Delivery O2 Flow Rate FiO2 08/30/17 15:21 98.4 78 18 134/85 (101) 99 08/30/17 11:37 97.5 79 18 139/87 (104) 97 08/30/17 10:13 18 08/30/17 07:49 18 08/30/17 07:45 98.2 85 18 138/90 (106) 97 08/30/17 02:34 97.6 83 18 136/85 (102) 97 08/29/17 20:00 98.5 91 18 144/86 (105) 96 I/O 08/29/17 08/29/17 08/29/17 08/30/17 08/30/17 08/30/17 07:00 15:00 23:00 07:00 15:00 23:00 Intake Total 120 ml 200 ml 1200 ml Output Total 5 ml Balance 120 ml 200 ml 1195 ml Intake Oral 120 ml 200 ml Other 1200 ml Output Estimated Blood Loss 5 ml # Voids 1 3 # Bowel Movements 0 Result Diagram: 08/29/17 0842 08/29/17 0842 Imaging Last Impressions Upper Extremity CT 08/29/17 0000 Signed Impressions: Service Date/Time: Tuesday, August 29, 2017 10:48 - CONCLUSION: Cellulitis without abscess.. This this could easily be followed by ultrasound. Nils Jovel MD FACR Shoulder X-Ray 08/28/17 0000 Signed Impressions: Service Date/Time: Monday, August 28, 2017 17:54 - CONCLUSION: Unremarkable examination of the left shoulder. Forest Adkins MD Chest X-Ray 08/28/17 0000 Signed Impressions: Service Date/Time: Monday, August 28, 2017 17:52 - CONCLUSION: No evidence of acute cardiopulmonary disease. Piotr Quintanilla MD Objective Remarks GENERAL: AOX3, NAD. SKIN: Warm and dry. LUE extensive swelling, redness, lesions. Pain on palpation. Right upper ext mild erythema, swelling. HEAD: Normocephalic. EYES: No scleral icterus. No injection or drainage. NECK: Supple, trachea midline. No JVD or lymphadenopathy. CARDIOVASCULAR: Regular rate and rhythm without murmurs, gallops, or rubs. RESPIRATORY: Breath sounds equal bilaterally. No accessory muscle use. GASTROINTESTINAL: Abdomen soft, non-tender, nondistended. MUSCULOSKELETAL: No cyanosis, or edema. BACK: Nontender without obvious deformity. No CVA tenderness. Procedures I and D abscess left forearm A/P Problem List: (1) Right arm cellulitis ICD Code: L03.113 - Cellulitis of right upper limb (2) Cellulitis of upper extremity ICD Code: L03.119 - Cellulitis of unspecified part of limb (3) Polysubstance abuse ICD Code: F19.10 - Other psychoactive substance abuse, uncomplicated Assessment and Plan Mr. De La Rosa is a 37-year-old male with a history of IV drug use who presents to the emergency department on 08/28/2017 due to bilateral upper extremity swelling and redness especially left upper extremity. - Left upper extremity cellulitis - Right upper extremity cellulitis - Left upper extremity cellulitis more pronounced. CT scan did not reveal any abscess. - Continue vancomycin. Appreciate surgery input. - [place], Dilaudid for pain management - Blood cultures negative. - Hypokalemia - potassium 3.1 on admission. After replacement potassium 3.6 - IV drug use - Patient is extensively counseled regarding IV drug use. Patient is motivated to quit his habit. - Hepatitis C - outpatient management Keegan Rachel MD Aug 30, 2017 19:41
[2017-08-30 20:15] VITALS: BP 126/78; PULSE 106; RESP 20; TEMP 98.1; O2SAT 96
--- NOTE | 2017-08-30 21:19 | MP ---
cc: JUSTIN AREVALO MD DATE OF SURGERY 08/30/2017 PREOPERATIVE DIAGNOSIS Abscess left forearm. POSTOPERATIVE DIAGNOSIS Abscess left forearm. PROCEDURE Incision and drainage, debridement left forearm abscess. SURGEON Dr. Arevalo ANESTHESIA General ESTIMATED BLOOD LOSS Minimal TOURNIQUET TIME 25 minutes at 250 mmHg SPECIMEN Material was sent for pathology and culture and sensitivity. DISPOSITION To PACU stable. INDICATION The patient is a 37-year-old male with history of IV drug abuse admitted with complaints of multiple skin lesions. He was initially treated with IV antibiotics. He had complained of persistent pain and swelling involving the left forearm. On examination he had tenderness and redness over the left forearm on the dorsal lateral aspect in the mid forearm. Because of persistent symptoms he was consented for incision and drainage of left forearm abscess. DETAILS OF PROCEDURE The patient was brought to the operating room. Under general anesthesia the left upper extremity was thoroughly prepped and draped. Incision site was marked over the region in a longitudinal fashion measuring about 4-5 cm. After limb elevation tourniquet was inflated to 250 mmHg. Incision was then made over the proposed incision site. Soft tissue dissection was carried out. There was evidence of purulent material within the subcutaneous region with the thrombosed vein in the region. The material was sent for culture and sensitivity. The thrombosed vein was excised and tied with 3-0 nylon stitches. Excisional debridement of necrotic and inflammatory tissue in the subcutaneous region was carried out. The forearm fascia was not involved intraoperatively. Thorough wash was given using normal saline mixed with irrigant and hydrogen peroxide. Tourniquet was deflated. Total tourniquet time was 25 minutes. The patient had good distal circulation on release of tourniquet. Bleeding points were cauterized with bipolar cautery. Packing of the wound was carried out. The wound was partially closed with 4-0 nylon in a horizontal mattress fashion. Bulky hand dressing was applied which was held in place by Sof-Rol and bias hand wrap. The patient was recovered sent to recovery in stable condition. We will change the packing tomorrow. We will continue with IV antibiotics. Justin Arevalo MD SE/PAT /7:49 PM 8:36 PM
[2017-08-30] MEDS: ACETAMINOPHEN/HYDROcodone 325 MG/10 MG TAB PO PRN (22:38)
[2017-08-30 23:59] VITALS: BP 142/71; PULSE 92; RESP 20; TEMP 98.3; O2SAT 96
[2017-08-31] MEDS: VANCOMYCIN INJ 1,600 MG in SODIUM CHLORID 0.9% 500 ML INJ 500 ML IV SCH ×3 (01:56→18:23)
[2017-08-31] MEDS: HYDROmorphone HCL PF 1 MG/ML VIAL IV PUSH PRN ×5 (01:57→22:11)
[2017-08-31 04:20] VITALS: BP 138/84; PULSE 78; RESP 18; TEMP 97.4; O2SAT 97
[2017-08-31] MEDS: ACETAMINOPHEN/HYDROcodone 325 MG/10 MG TAB PO PRN ×3 (06:40→18:23)
[2017-08-31] MEDS: SODIUM CHLORIDE 0.9% FLUSH 10 ML FLUSH IV FLUSH SCH ×2 (08:18→22:11)
[2017-08-31 08:24] VITALS: BP 139/85; PULSE 76; RESP 20; TEMP 98.1; O2SAT 99
[2017-08-31] MEDS: NS + KCL 20 MEQ INJ 1,000 ML IV SCH ×2 (09:22→20:10)
--- NOTE | 2017-08-31 11:16 | HHI.PR ---
Subjective Remarks Follow-up left forearm abscess. Complaining of pain left forearm. Seen with mother. Discussed with RN Objective Vitals Vital Signs Date Time Temp Pulse Resp B/P (MAP) Pulse Ox O2 Delivery O2 Flow Rate FiO2 08/31/17 08:24 98.1 76 20 139/85 (103) 99 08/31/17 04:20 97.4 78 18 138/84 (102) 97 08/31/17 02:32 18 08/31/17 01:09 18 08/30/17 23:59 98.3 92 20 142/71 (94) 96 08/30/17 20:15 98.1 106 20 126/78 (94) 96 08/30/17 18:50 83 20 138/70 (92) 95 Room Air 08/30/17 18:30 81 20 134/75 (94) 96 Room Air 08/30/17 18:15 95 20 140/73 (95) 97 Room Air 08/30/17 18:00 97.9 123 20 135/73 (93) 100 Simple Mask 8 08/30/17 15:21 98.4 78 18 134/85 (101) 99 08/30/17 11:37 97.5 79 18 139/87 (104) 97 I/O 08/30/17 08/30/17 08/30/17 08/31/17 08/31/17 08/31/17 07:00 15:00 23:00 07:00 15:00 23:00 Intake Total 1200 ml 1376 ml 800 ml Output Total 5 ml Balance 1195 ml 1376 ml 800 ml Intake Oral 860 ml IV Total 516 ml 800 ml Other 1200 ml Output Estimated Blood Loss 5 ml # Voids 3 Result Diagram: 08/29/17 0842 08/29/1742 Imaging Last Impressions Upper Extremity CT 08/29/17 0000 Signed Impressions: Service Date/Time: Tuesday, August 29, 2017 10:48 - CONCLUSION: Cellulitis without abscess.. This this could easily be followed by ultrasound. Nils Jovel MD FACR Shoulder X-Ray 08/28/17 0000 Signed Impressions: Service Date/Time: Monday, August 28, 2017 17:54 - CONCLUSION: Unremarkable examination of the left shoulder. Forest Adkins MD Chest X-Ray 08/28/17 0000 Signed Impressions: Service Date/Time: Monday, August 28, 2017 17:52 - CONCLUSION: No evidence of acute cardiopulmonary disease. Piotr Quintanilla MD Objective Remarks GENERAL: AOX3, NAD. SKIN: Warm and dry. LUE with dry dressing right upper ext mild erythema, swelling. HEAD: Normocephalic. EYES: No scleral icterus. No injection or drainage. NECK: Supple, trachea midline. No JVD or lymphadenopathy. CARDIOVASCULAR: Regular rate and rhythm without murmurs, gallops, or rubs. RESPIRATORY: Breath sounds equal bilaterally. No accessory muscle use. GASTROINTESTINAL: Abdomen soft, non-tender, nondistended. MUSCULOSKELETAL: No cyanosis, or edema. BACK: Nontender without obvious deformity. No CVA tenderness. Procedures I and D abscess left forearm A/P Problem List: (1) Right arm cellulitis ICD Code: L03.113 - Cellulitis of right upper limb (2) Cellulitis of upper extremity ICD Code: L03.119 - Cellulitis of unspecified part of limb (3) Polysubstance abuse ICD Code: F19.10 - Other psychoactive substance abuse, uncomplicated Assessment and Plan Mr. De La Rosa is a 37-year-old male with a history of IV drug use who presents to the emergency department on 08/28/2017 due to bilateral upper extremity swelling and redness especially left upper extremity. - Left upper extremity cellulitis/abscess status post I ND - Right upper extremity cellulitis - Left upper extremity cellulitis more pronounced. CT scan did not reveal any abscess. - Continue vancomycin. Appreciate surgery input. - [place], Dilaudid for pain management. Counseled regarding narcotics. Add IV Toradol - Blood and wound cultures negative. - Hypokalemia - potassium 3.1 on admission. After replacement potassium 3.6 - IV drug use - Patient is extensively counseled regarding IV drug use. Patient is motivated to quit his habit. - Hepatitis C - outpatient management - Left shoulder and chest wall contusion status post fall. NSAIDs. Incentive spirometry. Discharge Planning Discharge when cleared by hand surgery Keegan Rachel MD Aug 31, 2017 11:16
[2017-08-31] MEDS ORDERED: HYDR-3583 PO (11:17)
[2017-08-31 12:01] VITALS: BP 143/82; PULSE 85; RESP 20; TEMP 98.2; O2SAT 96
[2017-08-31] MEDS: KETOROLAC TROMETHAMINE 30 MG/ML (IVP) VIAL IV PUSH SCH ×2 (12:23→17:28)
[2017-08-31 15:10] VITALS: BP 137/78; PULSE 83; RESP 20; TEMP 98.3; O2SAT 97
--- NOTE | 2017-08-31 16:22 | HHI.DCPOC ---
Discharge Care Plan Diagnosis: (1) Abscess of left forearm Your Health Problems Are: Difficulty with ADL Exercise Tolerance Goals to Promote Your Health * To prevent worsening of your condition and complications * To maintain your health at the optimal level Directions to Meet Your Goals Take your medications as prescribed Follow your dietary instruction Follow activity as directed Keep your appointments as scheduled Take your immunizations and boosters as scheduled If your symptoms worsen call your PCP, if no PCP go to Urgent Care Center or Emergency Room Smoking is Dangerous to Your Health. Avoid second hand smoke Call the 24-hour hour crisis hotline for domestic abuse at Keegan Rachel MD Aug 31, 2017 16:22
--- NOTE | 2017-08-31 17:52 | HHI.PR ---
Subjective Remarks complains of pain complaint with limb elevation no fever no tingling or numbness Objective Vital Signs Date Time Temp Pulse Resp B/P (MAP) Pulse Ox O2 Delivery O2 Flow Rate FiO2 08/31/17 15:10 98.3 83 20 137/78 (97) 97 08/31/17 12:01 98.2 85 20 143/82 (102) 96 08/31/17 08:24 98.1 76 20 139/85 (103) 99 08/31/17 04:20 97.4 78 18 138/84 (102) 97 08/31/17 02:32 18 08/31/17 01:09 18 08/30/17 23:59 98.3 92 20 142/71 (94) 96 08/30/17 20:15 98.1 106 20 126/78 (94) 96 08/30/17 18:50 83 20 138/70 (92) 95 Room Air 08/30/17 18:30 81 20 134/75 (94) 96 Room Air 08/30/17 18:15 95 20 140/73 (95) 97 Room Air 08/30/17 18:00 97.9 123 20 135/73 (93) 100 Simple Mask 8 I/O 08/30/17 08/30/17 08/30/17 08/31/17 08/31/17 08/31/17 07:00 15:00 23:00 07:00 15:00 23:00 Intake Total 1200 ml 1376 ml 1400 ml Output Total 5 ml Balance 1195 ml 1376 ml 1400 ml Intake Oral 860 ml 600 ml IV Total 516 ml 800 ml Other 1200 ml Output Estimated Blood Loss 5 ml # Voids 3 5 # Bowel Movements 0 left upper extremity: intact dressing packing in place surrounding swelling and erythema noted minimal drainage Result Diagram: 08/29/17 0842 08/29/1742 Assessment and Plan Assessment and Plan 37 year old male s/p I and D left forearm POD 1 plan: packing pulled out 2 cms dry dressing applied keep the part elevated to IV pole continue antibiotics will remove tomorrow and plan for discharge on tuesday if clinically improving. Jakob Watson MD Aug 31, 2017 17:52
[2017-08-31 20:21] VITALS: BP 125/76; PULSE 86; RESP 18; TEMP 98.1; O2SAT 97
[2017-08-31 23:07] VITALS: BP 132/77; PULSE 81; RESP 16; TEMP 98.1; O2SAT 98
[2017-09-01] MEDS: VANCOMYCIN INJ 1,600 MG in SODIUM CHLORID 0.9% 500 ML INJ 500 ML IV SCH (01:18)
[2017-09-01] MEDS: KETOROLAC TROMETHAMINE 30 MG/ML (IVP) VIAL IV PUSH SCH ×4 (01:18→18:00)
[2017-09-01 02:54] VITALS: BP 143/85; PULSE 84; RESP 18; TEMP 98.5; O2SAT 97
[2017-09-01] MEDS: ACETAMINOPHEN/HYDROcodone 325 MG/10 MG TAB PO PRN ×4 (03:08→18:20)
[2017-09-01] MEDS: HYDROmorphone HCL PF 1 MG/ML VIAL IV PUSH PRN ×4 (05:11→19:59)
[2017-09-01] MEDS: NS + KCL 20 MEQ INJ 1,000 ML IV SCH ×2 (07:36→18:43)
[2017-09-01 07:47] VITALS: BP 130/86; PULSE 70; RESP 18; TEMP 95.9; O2SAT 97
--- NOTE | 2017-09-01 08:57 | HHI.PR ---
Subjective Remarks Follow up cellulitis, abscess. Patient reporting pain in the left arm. No other complaints at this time. Objective Vitals Vital Signs Date Time Temp Pulse Resp B/P (MAP) Pulse Ox O2 Delivery O2 Flow Rate FiO2 09/01/17 07:47 95.9 70 18 130/86 (101) 97 09/01/17 05:45 18 09/01/17 04:16 18 09/01/17 02:54 98.5 84 18 143/85 (104) 97 09/01/17 02:28 18 08/31/17 23:07 98.1 81 16 132/77 (95) 98 08/31/17 20:21 98.1 86 18 125/76 (92) 97 08/31/17 15:10 98.3 83 20 137/78 (97) 97 08/31/17 12:01 98.2 85 20 143/82 (102) 96 I/O 08/31/17 08/31/17 08/31/17 09/01/17 09/01/17 09/01/17 06:59 14:59 22:59 06:59 14:59 22:59 Intake Total 1376 ml 1400 ml 480 ml 516 ml Balance 1376 ml 1400 ml 480 ml 516 ml Intake Oral 860 ml 600 ml 480 ml IV Total 516 ml 800 ml 516 ml # Voids 3 5 # Bowel Movements 0 Result Diagram: 08/29/17 0842 08/29/17 0842 Imaging Last Impressions Upper Extremity CT 08/29/17 0000 Signed Impressions: Service Date/Time: Tuesday, August 29, 2017 10:48 - CONCLUSION: Cellulitis without abscess.. This this could easily be followed by ultrasound. Nils Jovel MD FACR Shoulder X-Ray 08/28/17 0000 Signed Impressions: Service Date/Time: Monday, August 28, 2017 17:54 - CONCLUSION: Unremarkable examination of the left shoulder. Forest Adkins MD Chest X-Ray 08/28/17 0000 Signed Impressions: Service Date/Time: Monday, August 28, 2017 17:52 - CONCLUSION: No evidence of acute cardiopulmonary disease. Piotr Quintanilla MD Objective Remarks General: No acute distress. Heart: Regular rate and rhythm. No murmur. Lungs: Clear to auscultation bilaterally. No wheezes, rales, or rhonchi. Breathing is nonlabored. Abdomen: Soft, nontender, nondistended. Extremities: No lower extremity edema. Left forearm bandaged. Mild erythema and swelling of the right upper extremity. Psych: Alert and oriented. Procedures I and D abscess left forearm Urinary Catheter: No Vascular Central Line Catheter: No A/P Problem List: (1) Right arm cellulitis ICD Code: L03.113 - Cellulitis of right upper limb (2) Cellulitis of upper extremity ICD Code: L03.119 - Cellulitis of unspecified part of limb (3) Polysubstance abuse ICD Code: F19.10 - Other psychoactive substance abuse, uncomplicated Assessment and Plan 1. Bilateral upper extremity cellulitis with left arm abscess: Status post incision and drainage. Appreciate and surgery recommendations. Continue antibiotics. Continue pain control. Patient has been counseled regarding narcotic pain medications. Blood and wound cultures remained negative. 2. Hypokalemia: Improved. 3. History of IV drug use: Patient has been extensively counseled regarding IV drug use. Will use caution with pain medication. 4. Hepatitis C: Management as outpatient. 5. Left shoulder and chest wall contusion: Status post fall. Continue NSAIDs, incentive spirometry. 6. DVT prophylaxis: Low risk. Ambulation. Discharge Planning Plan for discharge home when cleared by hand surgery. Pawel Julian MD Sep 01, 2017 08:57
[2017-09-01] MEDS: SODIUM CHLORIDE 0.9% FLUSH 10 ML FLUSH IV FLUSH SCH ×2 (09:00→20:19)
[2017-09-01] MEDS ORDERED: PHARMACY ORDERED LAB ONE (09:45)
[2017-09-01 11:07] VITALS: BP 152/95; PULSE 78; RESP 18; TEMP 96.6; O2SAT 96
[2017-09-01 15:20] VITALS: BP 154/88; PULSE 71; RESP 24; TEMP 96.4; O2SAT 95
[2017-09-01] MEDS: VANCOMYCIN INJ 1,750 MG in SODIUM CHLORID 0.9% 500 ML INJ 500 ML IV SCH (16:01)
--- NOTE | 2017-09-01 19:15 | HHI.PR ---
Subjective Remarks complains of pain complaint with limb elevation no fever no tingling or numbness Objective Vital Signs Date Time Temp Pulse Resp B/P (MAP) Pulse Ox O2 Delivery O2 Flow Rate FiO2 09/01/17 15:20 96.4 71 24 154/88 (110) 95 09/01/17 11:07 96.6 78 18 152/95 (114) 96 09/01/17 07:47 95.9 70 18 130/86 (101) 97 09/01/17 05:45 18 09/01/17 04:16 18 09/01/17 02:54 98.5 84 18 143/85 (104) 97 09/01/17 02:28 18 08/31/17 23:07 98.1 81 16 132/77 (95) 98 08/31/17 20:21 98.1 86 18 125/76 (92) 97 I/O 08/31/17 08/31/17 08/31/17 09/01/17 09/01/17 09/01/17 07:00 15:00 23:00 07:00 15:00 23:00 Intake Total 1376 ml 1400 ml 480 ml 516 ml Balance 1376 ml 1400 ml 480 ml 516 ml Intake Oral 860 ml 600 ml 480 ml IV Total 516 ml 800 ml 516 ml # Voids 3 5 # Bowel Movements 0 left forearm: packing in place minimal drainage range of motion wrist has improved gram stain: gram positive cocci in pairs Result Diagram: 08/29/17 0842 09/01/17 1345 Assessment and Plan Assessment and Plan 37 year old male s/p I and D left forearm POD 2 plan: packing pulled out and repacked dry dressing applied cleared for discharge from hand surgery with po antibiotics follow up in office next week advised regarding dressing changes to the patient and his mother. Jakob Watson MD Sep 01, 2017 19:15
[2017-09-01 20:25] VITALS: BP 135/75; PULSE 81; RESP 17; TEMP 98.6; O2SAT 96
[2017-09-01 23:47] VITALS: BP 131/82; PULSE 83; RESP 18; TEMP 97.5; O2SAT 96
[2017-09-02 03:10] VITALS: BP 129/89; PULSE 85; RESP 18; TEMP 97.8; O2SAT 97
[2017-09-02] MEDS: HYDROmorphone HCL PF 1 MG/ML VIAL IV PUSH PRN ×3 (04:11→09:25)
[2017-09-02] MEDS: VANCOMYCIN INJ 1,750 MG in SODIUM CHLORID 0.9% 500 ML INJ 500 ML IV SCH (04:11)
[2017-09-02] MEDS: NS + KCL 20 MEQ INJ 1,000 ML IV SCH (05:50)
[2017-09-02] MEDS: KETOROLAC TROMETHAMINE 30 MG/ML (IVP) VIAL IV PUSH SCH ×2 (06:00)
[2017-09-02 07:16] VITALS: BP 144/86; PULSE 79; RESP 18; TEMP 97.9; O2SAT 96
[2017-09-02] MEDS: ACETAMINOPHEN/HYDROcodone 325 MG/10 MG TAB PO PRN (08:13)
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
[2017-09-02] MEDS: SODIUM CHLORIDE 0.9% FLUSH 10 ML FLUSH IV FLUSH SCH (09:00)
[2017-09-02] MEDS ORDERED: AMOX500T PO (11:00)
[2017-09-03] MEDS ORDERED: PHARMACY ORDERED LAB ONE (03:45)
== END 2017-09-02 11:51 | disposition home or self-care (01) | DRG 571 ==
LOC: NEPD 14:57 → NEDA 19:13 → NEPGCP 20:24 → OBSVTOIN 08-30 16:45
PROVIDERS: ADMIT Family Medicine; ATTEND Family Medicine
PROC: 05BY0ZZ Excision of Upper Vein, Open Approach (ICD-10-PCS; 2017-08-30)
PROC: 0JBH0ZZ Excision of Left Lower Arm Subcutaneous Tissue and Fascia, Open Approach (ICD-10-PCS; principal; 2017-08-30 16:44)
DX: L02.414 Cutaneous abscess of left upper limb (principal); I82.602 Acute embolism and thrombosis of unspecified veins of left upper extremity; I10 Essential (primary) hypertension; L03.113 Cellulitis of right upper limb; L03.114 Cellulitis of left upper limb; E87.6 Hypokalemia; S20.219A Contusion of unspecified front wall of thorax, initial encounter; S40.012A Contusion of left shoulder, initial encounter; B95.0 Streptococcus, group A, as the cause of diseases classified elsewhere; F11.10 Opioid abuse, uncomplicated; F14.10 Cocaine abuse, uncomplicated; F17.210 Nicotine dependence, cigarettes, uncomplicated; V18.4XXA Pedal cycle driver injured in noncollision transport accident in traffic accident, initial encounter; Y93.55 Activity, bike riding; Z59.0 Homelessness; Z86.19 Personal history of other infectious and parasitic diseases
CPT/HCPCS: 71020; 73030; 73201; 80048; 80053; 80202; 81001; 82565; 85025; 86403; 87040; 87070; 87077; 87186; 87205; 88304; 94150; 96365; 96366; G0378; J0690; J1100; J1170; J1885; J2175; J2250; J2270; J2405; J3010; J3370; J3480; J7040; J7120; Q9967

== ENCOUNTER 2017-09-28 17:26 | Emergency (ER) | payer SELFPAY ==
[~2017-09-28] VITALS: Ht 185.4 cm; Wt 84.0 kg
[2017-09-28 17:26] VITALS: BP 127/84; PULSE 118; RESP 16; TEMP 98.4; O2SAT 100
[~2017-09-28 17:26] MED LIST changes: +AMOX500T PO; -DICL50 PO; -ERYTOIN10 LEFT EYE; -GABA300C3 PO; +HYDR-3583 PO; -ROBA750T3 PO
[2017-09-28] MEDS ORDERED: SODIUM CHLOR 0.9% 1000 ML INJ 1,000 ML IV ONE (17:48)
[2017-09-28 17:54] VITALS: O2SAT 100
[2017-09-28] MEDS ORDERED: SODIUM CHLORIDE 0.9% FLUSH 10 ML FLUSH IVF PRN (18:00)
--- NOTE | 2017-09-28 18:24 | PD ---
HPI Chief Complaint: OD/ Ingestion Time Seen by Provider: 17:48 Travel History International Travel<30 days: No Contact w/Intl Traveler<30days: No Traveled to known affect area: No History of Present Illness HPI 37-year-old male with PMH of substance abuse presents to the ED via EMS for evaluation after being found unresponsive in a car with hypodermic syringes. On presentation the patient is somnolent but arouses easily to voice. He endorses using IV heroin today. He is oriented to person and place. He denies any somatic complaints. He denies suicidal ideation, states he was trying to get high. He is unwilling to quantify the amount of heroin that he injected today. Denies any other illicit drug use today. Denies alcohol use today. Per EMS the patient received 0.8 mg Narcan en route, became responsive almost immediately after administration. PFSH Past Medical History Asthma: No Blood Disorders: No Heart Rhythm Problems: No Cancer: No Cardiovascular Problems: No High Cholesterol: No Chemotherapy: No Chest Pain: No Congestive Heart Failure: No COPD: No Diabetes: No Diminished Hearing: No Endocrine: No Gastrointestinal Disorders: No Genitourinary: No Hepatitis: Yes (HEP C - completed Interferon Tx through per pt.) Hiatal Hernia: No Hypertension: Yes Immune Disorder: No Musculoskeletal: No Neurologic: No Psychiatric: No Reproductive: No Respiratory: No Radiation Therapy: No Sleep Apnea: No Thyroid Disease: No Tetanus Vaccination: < 5 Years Influenza Vaccination: Yes Past Surgical History Abdominal Surgery: Yes (HERNIA REPAIR) Cardiac Surgery: No Ear Surgery: No Endocrine Surgery: No Eye Surgery: No Genitourinary Surgery: Yes (TESTICULAR TORSION REPAIR - age 14) Gynecologic Surgery: No Neurologic Surgery: No Oral Surgery: No Thoracic Surgery: No Other Surgery: Yes Social History Alcohol Use: Yes Tobacco Use: Yes (1 PPD) Substance Use: Yes (crack cocaine,heroin, uses every few weeks, last use ) Allergies-Medications (Allergen,Severity, Reaction): Coded Allergies: No Known Allergies (Verified Allergy, Unknown, 08/28/17) Reported Meds & Prescriptions Reported Meds & Active Scripts Active Amoxicillin 500 Mg Tab 500 Mg PO TID Hydrocodone-Acetaminophen 10-325 mg Tab 1 Tab PO Q6H PRN Review of Systems Except as stated in HPI: all other systems reviewed are Neg Physical Exam Narrative GENERAL: Well-nourished, well-developed white male in no acute distress. Sleeping, rouses easily to voice. On 2 L by nasal cannula. SKIN: Focused skin assessment warm/dry. HEAD: Normocephalic. EYES: No scleral icterus. No injection or drainage. NECK: Supple, trachea midline. No JVD or lymphadenopathy. CARDIOVASCULAR: Regular rate and rhythm without murmurs, gallops, or rubs. RESPIRATORY: Breath sounds clear and equal bilaterally. No accessory muscle use. GASTROINTESTINAL: Abdomen soft, non-tender, nondistended. MUSCULOSKELETAL: No cyanosis, or edema. BACK: Nontender without obvious deformity. No CVA tenderness. Data Data Last Documented VS Vital Signs Date Time Temp Pulse Resp B/P (MAP) Pulse Ox O2 Delivery O2 Flow Rate FiO2 09/28/17 17:54 100 Nasal Cannula 2.00 09/28/17 17:26 98.4 118 16 127/84 (98) Orders Orders Electrocardiogram (09/28/17 17:48) Complete Blood Count With Diff (09/28/17 17:48) Comprehensive Metabolic Panel (09/28/17 17:48) Iv Access Insert/Monitor (09/28/17 17:48) Ecg Monitoring (09/28/17 17:48) Oximetry (09/28/17 17:48) Sodium Chloride 0.9% Flush (Ns Flush) (09/28/17 18:00) Sodium Chlor 0.9% 1000 Ml Inj (Ns 1000 M (09/28/17 17:48) Urinalysis - C+S If Indicated (09/28/17 19:48) Ondansetron Odt (Zofran Odt) (09/28/17 20:15) Ed Discharge Order (09/28/17 20:08) Labs Laboratory Tests Test 09/28/17 17:50 White Blood Count 7.3 TH/MM3 Red Blood Count 5.00 MIL/MM3 Hemoglobin 15.2 GM/DL Hematocrit 44.5 % Mean Corpuscular Volume 89.0 FL Mean Corpuscular Hemoglobin 30.5 PG Mean Corpuscular Hemoglobin Concent 34.2 % Red Cell Distribution Width 13.5 % Platelet Count 180 TH/MM3 Mean Platelet Volume 9.1 FL Neutrophils (%) (Auto) 66.5 % Lymphocytes (%) (Auto) 25.8 % Monocytes (%) (Auto) 6.0 % Eosinophils (%) (Auto) 1.0 % Basophils (%) (Auto) 0.7 % Neutrophils # (Auto) 4.8 TH/MM3 Lymphocytes # (Auto) 1.9 TH/MM3 Monocytes # (Auto) 0.4 TH/MM3 Eosinophils # (Auto) 0.1 TH/MM3 Basophils # (Auto) 0.0 TH/MM3 CBC Comment AUTO DIFF Differential Total Cells Counted 100 Neutrophils % (Manual) 68 % Band Neutrophils % 6 % Lymphocytes % 21 % Monocytes % 4 % Eosinophils % 1 % Neutrophils # (Manual) 5.4 TH/MM3 Differential Comment FINAL DIFF MANUAL Platelet Estimate NORMAL Platelet Morphology Comment NORMAL Red Cell Morphology Comment NORMAL Blood Urea Nitrogen 11 MG/DL Creatinine 1.37 MG/DL Random Glucose 114 MG/DL Total Protein 8.2 GM/DL Albumin 3.8 GM/DL Calcium Level 8.4 MG/DL Alkaline Phosphatase 140 U/L Aspartate Amino Transf (AST/SGOT) 496 U/L Alanine Aminotransferase (ALT/SGPT) 520 U/L Total Bilirubin 0.6 MG/DL Sodium Level 135 MEQ/L Potassium Level 3.6 MEQ/L Chloride Level 100 MEQ/L Carbon Dioxide Level 21.3 MEQ/L Anion Gap 14 MEQ/L Estimat Glomerular Filtration Rate 59 ML/MIN [facility] Medical Decision Making Medical Screen Exam Complete: Yes Emergency Medical Condition: Yes Differential Diagnosis Accidental overdose versus substance abuse versus metabolic derangement versus other Narrative Course 37-year-old male with PMH of substance abuse presents to the ED via EMS for evaluation after being found unresponsive in a car with hypodermic syringes. On presentation the patient arouses easily to voice. He endorses using IV heroin today. He is oriented to person and place. He denies any somatic complaints. He denies suicidal ideation, states he was trying to get high. He is unwilling to quantify the amount of heroin that he injected today. Denies any other illicit drug use today. Denies alcohol use today. Per EMS the patient received 0.8 mg Narcan en route, became responsive almost immediately after administration. Vitals reviewed. Physical exam is reassuring. IV was established. Patient was administered 1 L normal saline. EKG rate 117, sinus tachycardia. CA interval 155, QRS 102, QTC 409 ms. Normal axis. No acute ST changes. Reviewed by Laboratory evaluation reveals creatinine 1.35, elevation of the AST and ALT. On reevaluation the patient is alert and oriented, pacing about the room. He removed his own IV. He complains of nausea but requests to be discharged. He denies suicidal ideation, states that he was attempting to get high. He states that he [place] blocks from the hospital. No somatic complaints. He endorses previous history of OD. He does not wish to stop using opioids. He complains of nausea. I think the patient is capable of making his own decisions and inappropriate for a D[place] act. He is stable and discharged home. Diagnosis Primary Impression: Accidental overdose of heroin Qualified Codes: T40.1X1A - Poisoning by heroin, accidental (unintentional), initial encounter Referrals: [facility] (Out patient) Additional Instructions: Seek outpatient treatment for substance abuse. Return to ED for any urgent or emergent medical condition. Disposition: 01 DISCHARGE HOME Condition: Stable Araceli Clements Sep 28, 2017 18:24
[2017-09-28 18:26] LABS: AUTOMATED NEUTROPHIL # 4.8 TH/MM3 (1.8-7.7); BASOPHIL % 0.7 % (0.0-2.0); EOSINOPHIL # 0.1 TH/MM3 (0-0.4); HEMATOCRIT 44.5 % (39.0-51.0); LYMPH % 25.8 % (9.0-44.0); LYMPHOCYTE # 1.9 TH/MM3 (1.0-4.8); MEAN CORPUSCULAR HEMOGLOBIN 30.5 PG (27.0-34.0); MEAN CORPUSCULAR HGB CONC 34.2 % (32.0-36.0); NEUT % 66.5 % (16.0-70.0); PLATELET COUNT 180 TH/MM3 (150-450); RED CELL DISTRIBUTION WIDTH 13.5 % (11.6-17.2); WHITE BLOOD COUNT 7.3 TH/MM3 (4.0-11.0)
[2017-09-28 18:27] LABS: HEMO FLAGS AUTO DIFF
[2017-09-28 19:10] LABS: ANION GAP 14 MEQ/L (5-15); AST (GOT) 496 U/L (15-37); BICARBONATE 21.3 MEQ/L (21.0-32.0); BLOOD UREA NITROGEN 11 MG/DL (7-18); CHLORIDE 100 MEQ/L (98-107); GLOMERULAR FILTRATION RATE 59 ML/MIN (>89); SODIUM (NA) 135 MEQ/L (136-145)
[2017-09-28 19:11] LABS: ALT (GPT) 520 U/L (12-78)
[2017-09-28 19:13] LABS: ALKALINE PHOSPHATASE 140 U/L (45-117); POTASSIUM 3.6 MEQ/L (3.5-5.1); TOTAL BILIRUBIN ADULT 0.6 MG/DL (0.2-1.0)
[2017-09-28 19:58] LABS: BANDS 6 % (0-6); EOSINOPHILS 1 % (0-4); NEUTROPHIL # MANUAL DIFF 5.4 TH/MM3 (1.8-7.7); POLYS (SEG NEUTROPHILS) 68 % (16-70); WBC DIFF SAMPLE 100
[2017-09-28 19:59] LABS: SCAN/DIFF FINAL DIFF MANUAL
[2017-09-28 20:00] LABS: PLATELET ESTIMATE SMEAR NORMAL (NORMAL); PLATELET MORPHOLOGY NORMAL (NORMAL)
[2017-09-28] MEDS ORDERED: ONDANSETRON ODT 4 MG TAB PO ONE (20:15)
--- NOTE | 2017-09-29 16:09 | EKG ---
Date Performed: 09/28/2017 Time Performed: 18:30:18 PTAGE: 37 years EKG: SINUS TACHYCARDIA POSSIBLE RIGHT VENTRICULAR CONDUCTION DELAY ABNORMAL RHYTHM ECG Since PREVIOUS TRACING , no significant change noted PREVIOUS TRACIN05/11/2006 20.17 DOCTOR: Titus Campovrede Interpretating Date/Time 09/29/2017 16:08:46
== END 2017-09-28 20:36 | disposition home or self-care (01) ==
LOC: NEPE 17:26
DX: T40.1X1A Poisoning by heroin, accidental (unintentional), initial encounter (principal); R00.0 Tachycardia, unspecified; F17.200 Nicotine dependence, unspecified, uncomplicated
CPT/HCPCS: 80053; 85007; 85027; 93005; 99285; J7030

== ENCOUNTER 2017-10-03 20:41 | Inpatient (IN) | payer SELFPAY ==
[~2017-10-03] VITALS: Ht 190.5 cm; Wt 91.0 kg
[2017-10-03 20:43] VITALS: BP 116/64; PULSE 110; RESP 18; TEMP 98.7; O2SAT 100
--- NOTE | 2017-10-03 21:31 | PD ---
HPI Chief Complaint: Medical Clearance Time Seen by Provider: 21:31 Travel History International Travel<30 days: No Contact w/Intl Traveler<30days: No Traveled to known affect area: No PFSH Past Medical History Asthma: No Blood Disorders: No Heart Rhythm Problems: No Cancer: No Cardiovascular Problems: No High Cholesterol: No Chemotherapy: No Chest Pain: No Congestive Heart Failure: No COPD: No Diabetes: No Diminished Hearing: No Endocrine: No Gastrointestinal Disorders: No Genitourinary: No Hepatitis: Yes (HEP C - completed Interferon Tx through per pt.) Hiatal Hernia: No Hypertension: Yes Immune Disorder: No Musculoskeletal: No Neurologic: No Psychiatric: No Reproductive: No Respiratory: No Radiation Therapy: No Sleep Apnea: No Thyroid Disease: No Past Surgical History Abdominal Surgery: Yes (HERNIA REPAIR) Cardiac Surgery: No Ear Surgery: No Endocrine Surgery: No Eye Surgery: No Genitourinary Surgery: Yes (TESTICULAR TORSION REPAIR - age 14) Gynecologic Surgery: No Neurologic Surgery: No Oral Surgery: No Thoracic Surgery: No Other Surgery: Yes Social History Alcohol Use: Yes Tobacco Use: Yes (1 PPD) Substance Use: Yes (crack cocaine,heroin, uses every few weeks, last use ) Allergies-Medications (Allergen,Severity, Reaction): Coded Allergies: No Known Allergies (Verified Allergy, Unknown, 08/28/17) Reported Meds & Prescriptions Reported Meds & Active Scripts Active Amoxicillin 500 Mg Tab 500 Mg PO TID Hydrocodone-Acetaminophen 10-325 mg Tab 1 Tab PO Q6H PRN Data Data Last Documented VS Vital Signs Date Time Temp Pulse Resp B/P (MAP) Pulse Ox O2 Delivery O2 Flow Rate FiO2 10/03/17 20:43 98.7 110 18 116/64 (81) 100 Room Air Orders Orders Electrocardiogram (10/03/17 21:34) Complete Blood Count With Diff (10/03/17 21:34) Comprehensive Metabolic Panel (10/03/17 21:34) Creatine Kinase (Cpk) (10/03/17 21:34) Ckmb (Isoenzyme) Profile (10/03/17 21:34) Troponin I (10/03/17 21:34) B-Type Natriuretic Peptide (10/03/17 21:34) Prothrombin Time / Inr (Pt) (10/03/17 21:34) Act Partial Throm Time (Ptt) (10/03/17 21:34) Blood Culture (10/03/17 21:34) C-Reactive Protein (Crp) (10/03/17 21:34) Lipase (10/03/17 21:34) Urinalysis - C+S If Indicated (10/03/17 21:34) Westergren Sedimentation Rate (10/03/17 21:34) Magnesium (Mg) (10/03/17 21:34) Chest, Single Ap (10/03/17 21:34) Ct Brain W/O Iv Contrast(Rout) (10/03/17 21:34) Iv Access Insert/Monitor (10/03/17 21:34) Ecg Monitoring (10/03/17 21:34) Oximetry (10/03/17 21:34) Drug Screen, Random Urine (10/03/17 21:34) Alcohol (Ethanol) (10/03/17 21:34) Salicylates (Aspirin) (10/03/17 21:34) Tylenol (Acetaminophen) (10/03/17 21:34) Lactic Acid Sepsis Protocol (10/03/17 21:34) Sodium Chlor 0.9% 1000 Ml Inj (Ns 1000 M (10/03/17 21:45) Piperacil-Tazo 3.375 Gm Premix (Zosyn 3. (10/03/17 21:45) Vancomycin Inj (Vancomycin Inj) (10/03/17 21:45) Lianna Crespo Oct 03, 2017 21:31
--- NOTE | 2017-10-03 21:43 | PD ---
HPI Chief Complaint: Medical Clearance Time Seen by Provider: 21:31 Travel History International Travel<30 days: No Contact w/Intl Traveler<30days: No Traveled to known affect area: No History of Present Illness HPI The patient is a 37 year old male who presents to the [facility] emergency department with a history of developing severe left upper extremity arm pain that began this morning. The patient reports that he is an IV drug user that uses methamphetamine, crack, and heroin on a regular basis. He reports that he last injected in the left arm approximate 6 hours ago. He reports that he had the pain prior to injecting. He denies having any foreign body in his arm. He reports that he was admitted to the hospital approximately a month ago related to an infection in the left arm and associated blood clot. The patient reports that he does not have a primary care physician. He did not follow-up with the hand surgeon that did incision and drainage related to abscess. The patient reports that he has not felt well for the last few days. He reports that he's had subjective fever, chills, cough productive of green sputum, chest pain with coughing, wheezing, and a sore throat. He reports that yesterday in the day prior he also had nausea and vomiting many times. He reports that he's had loose stools as well. He denies having any blood in his emesis or blood in his stool. The patient reports that over the last few days he's noticed some lower extremity edema. On review of systems otherwise, the patient denies having any neck pain, abdominal pain, urinary symptoms, or neurologic symptoms. [facility]LY [facility] Past Medical History Narrative Medical The patient's past medical history is significant for having hepatitis C, history of IV drug use, history of bilateral upper extremity cellulitis admitted to the hospital in August 2017. The patient denies having any history of HIV. The patient denies having any prior history of endocarditis. Asthma: No Blood Disorders: No Heart Rhythm Problems: No Cancer: No Cardiovascular Problems: No High Cholesterol: No Chemotherapy: No Chest Pain: No Congestive Heart Failure: No COPD: No Diabetes: No Diminished Hearing: No Endocrine: No Gastrointestinal Disorders: No Genitourinary: No Hepatitis: Yes (HEP C - completed Interferon Tx through per pt.) Hiatal Hernia: No Hypertension: Yes Immune Disorder: No Musculoskeletal: No Neurologic: No Psychiatric: No Reproductive: No Respiratory: No Radiation Therapy: No Sleep Apnea: No Thyroid Disease: No Past Surgical History Narrative Surgical The patient's past surgical history is significant for bilateral inguinal hernia repair as a child, history of testicular torsion surgery, history of left arm abscess drainage by the hand surgeon Abdominal Surgery: Yes (HERNIA REPAIR) Cardiac Surgery: No Ear Surgery: No Endocrine Surgery: No Eye Surgery: No Genitourinary Surgery: Yes (TESTICULAR TORSION REPAIR - age 14) Gynecologic Surgery: No Neurologic Surgery: No Oral Surgery: No Thoracic Surgery: No Other Surgery: Yes Social History Alcohol Use: Yes (4 beers daily, each beer is 24 ounces) Tobacco Use: Yes (1 PPD) Substance Use: Yes (crack cocaine,heroin, last use today) Allergies-Medications (Allergen,Severity, Reaction): Coded Allergies: No Known Allergies (Verified Allergy, Unknown, 10/03/17) Reported Meds & Prescriptions Reported Meds & Active Scripts Active Review of Systems Except as stated in HPI: all other systems reviewed are Neg General / Constitutional: Positive: Fever, Chills Eyes: No: Visual changes HENT: Positive: Headaches, Sore Throat, Congestion, No: Neck Stiffness, Neck Pain Cardiovascular: Positive: Chest Pain or Discomfort, Dyspnea on exertion Respiratory: Positive: Cough, Shortness of Breath Gastrointestinal: Positive: Nausea, Vomiting, Diarrhea, Changes in Bowel Habits , Loss of Appetite, No: Abdominal Pain, Indigestion Genitourinary: No: Urgency, Frequency, Dysuria, Flank Pain Musculoskeletal: Positive: Myalgias, Edema, Pain Skin: No Rash Neurologic: No: Weakness, Focal Abnormalities, Change in Mentation, Slurred Speech, Sensory Disturbance Psychiatric: No: Depression Endocrine: No: Polydipsia Hematologic/Lymphatic: No: Easy Bruising Physical Exam Narrative General: The patient is a well-developed well-nourished male, uncomfortable appearing on arrival, tearful, agitated, having difficulty laying still on the bed related to left upper extremity pain. Head and Neck exam: Head is normocephalic atraumatic. Eyes: EOMI, pupils are equal round and reactive to light. Nose: Midline septum with pink mucous membranes Mouth: Dentition unremarkable. Moist mucus membranes. Posterior oropharynx is not erythematous. No tonsillar hypertrophy. Uvula midline. Airway patent. Neck: No palpable lymphadenopathy. No nuchal rigidity. No thyromegaly. Negative Brudzinski, negative Kernig sign. Cardiovascular: Sinus tachycardia in the low 100s without murmurs, gallops, or rubs. No pulse deficit to the extremities on simultaneous auscultation and palpation of his radial artery. Lungs: Decreased breath sounds are audible on the right lower lung field, no rhonchi, no wheezes. No accessory muscle use. No paroxysmal abdominal breathing. No tripoding. Abdomen: Soft, without tenderness to palpation in all 4 quadrants of the abdomen. No guarding, rebound, or rigidity. Normal bowel sounds are audible. No tenderness on palpation of McBurney's point. Extremities: No clubbing or cyanosis. The patient has trace to 1+ pitting edema bilateral lower extremities. The area of interest is the left upper extremity which does reveal erythema along the forearm and posterior left hand. There are track xavier noted in bilateral upper extremities. There is no pointing, however there is exquisite tenderness on palpation along the dorsum of the hand. Compartments are soft. The patient has intact sensation over all fingertips. The patient has less than 3 second capillary refill. 2+ pulses in all 4 extremities. Back: No spinous process tenderness to palpation. No costovertebral angle tenderness to palpation. Neurologic Exam: Grossly nonfocal, hyperesthetic over his entire body. Skin Exam: Skin is warm and dry. Tract xavier are noted on his extremities Data Data Last Documented VS Vital Signs Date Time Temp Pulse Resp B/P (MAP) Pulse Ox O2 Delivery O2 Flow Rate FiO2 10/03/17 21:53 104 36 10/03/17 20:43 98.7 116/64 (81) 100 Room Air Orders Orders Electrocardiogram (10/03/17 21:34) Complete Blood Count With Diff (10/03/17 21:34) Comprehensive Metabolic Panel (10/03/17 21:34) Creatine Kinase (Cpk) (10/03/17 21:34) Ckmb (Isoenzyme) Profile (10/03/17 21:34) Troponin I (10/03/17 21:34) B-Type Natriuretic Peptide (10/03/17 21:34) Prothrombin Time / Inr (Pt) (10/03/17 21:34) Act Partial Throm Time (Ptt) (10/03/17 21:34) Blood Culture (10/03/17 21:34) C-Reactive Protein (Crp) (10/03/17 21:34) Lipase (10/03/17 21:34) Urinalysis - C+S If Indicated (10/03/17 21:34) Westergren Sedimentation Rate (10/03/17 21:34) Magnesium (Mg) (10/03/17 21:34) Chest, Single Ap (10/03/17 21:34) Ct Brain W/O Iv Contrast(Rout) (10/03/17 21:34) Iv Access Insert/Monitor (10/03/17 21:34) Ecg Monitoring (10/03/17 21:34) Oximetry (10/03/17 21:34) Drug Screen, Random Urine (10/03/17:34) Alcohol (Ethanol) (10/03/17 21:34) Salicylates (Aspirin) (10/03/17 21:34) Tylenol (Acetaminophen) (10/03/17 21:34) Lactic Acid Sepsis Protocol (10/03/17 21:34) Sodium Chlor 0.9% 1000 Ml Inj (Ns 1000 M (10/03/17 21:45) Piperacil-Tazo 3.375 Gm Premix (Zosyn 3. (10/03/17 21:45) Vancomycin Inj (Vancomycin Inj) (10/03/17 21:45) Us Arm Venous Doppler (10/03/17 21:45) Sodium Chlor 0.9% 1000 Ml Inj (Ns 1000 M (10/03/17 22:52) Sodium Chlor 0.9% 1000 Ml Inj (Ns 1000 M (10/03/17 22:52) Sodium Chlor 0.9% 1000 Ml Inj (Ns 1000 M (10/03/17 22:52) CKMB (10/03/17 21:40) CKMB% (10/03/17 21:40) Morphine Inj (Morphine Inj) (10/03/17 23:45) Ondansetron Inj (Zofran Inj) (10/03/17 23:45) Admit Order (Ed Use Only) (10/03/17 23:43) Labs Laboratory Tests Test 10/03/17 21:40 10/03/17 23:25 White Blood Count 20.7 TH/MM3 Red Blood Count 4.23 MIL/MM3 Hemoglobin 12.5 GM/DL Hematocrit 35.9 % Mean Corpuscular Volume 84.9 FL Mean Corpuscular Hemoglobin 29.5 PG Mean Corpuscular Hemoglobin Concent 34.7 % Red Cell Distribution Width 13.7 % Platelet Count 97 TH/MM3 Mean Platelet Volume 11.2 FL CBC Comment AUTO DIFF Differential Total Cells Counted 100 Neutrophils % (Manual) 74 % Band Neutrophils % 16 % Lymphocytes % 8 % Monocytes % 1 % Neutrophils # (Manual) 18.8 TH/MM3 Metamyelocytes 1 % Differential Comment FINAL DIFF MANUAL Toxic Vacuolation PRESENT Dohle Bodies PRESENT Platelet Estimate LOW Platelet Morphology Comment ENLARGED Erythrocyte Sedimentation Rate 43 mm/hr Prothrombin Time 9.9 SEC Prothromb Time International Ratio 1.0 RATIO Activated Partial Thromboplast Time 36.9 SEC Blood Urea Nitrogen 29 MG/DL Creatinine 1.26 MG/DL Random Glucose 79 MG/DL Total Protein 7.4 GM/DL Albumin 3.2 GM/DL Calcium Level 8.6 MG/DL Magnesium Level 2.0 MG/DL Alkaline Phosphatase 274 U/L Aspartate Amino Transf (AST/SGOT) 124 U/L Alanine Aminotransferase (ALT/SGPT) 495 U/L Total Bilirubin 1.5 MG/DL Sodium Level 128 MEQ/L Potassium Level 3.8 MEQ/L Chloride Level 92 MEQ/L Carbon Dioxide Level 28.9 MEQ/L Anion Gap 7 MEQ/L Estimat Glomerular Filtration Rate 65 ML/MIN Lactic Acid Level 1.6 mmol/L Total Creatine Kinase 473 U/L Creatine Kinase MB 9.6 NG/ML Creatine Kinase MB % 2.0 % Troponin I LESS THAN 0.02 NG/ML C-Reactive Protein 20.00 MG/DL B-Type Natriuretic Peptide 8 PG/ML Lipase 75 U/L Salicylates Level LESS THAN 1.7 MG/DL Acetaminophen Level LESS THAN 2.0 MCG/ML Ethyl Alcohol Level LESS THAN 3 MG/DL Urine Color YELLOW Urine Turbidity CLEAR Urine pH 5.0 Urine Specific [place] 1.010 Urine Protein TRACE mg/dL Urine Glucose (UA) NEG mg/dL Urine Ketones NEG mg/dL Urine Occult Blood SMALL Urine Nitrite NEG Urine Bilirubin NEG Urine Urobilinogen 2.0 MG/DL Urine Leukocyte Esterase NEG Urine RBC 1 /hpf Urine WBC 3 /hpf Urine Amorphous Sediment RARE Urine Granular Casts 1 /lpf Urine Mucus FEW /lpf Microscopic Urinalysis Comment CULT NOT INDICATED Urine Opiates Screen NEG Urine Barbiturates Screen NEG Urine Amphetamines Screen POS Urine Benzodiazepines Screen NEG Urine Cocaine Screen POS Urine Cannabinoids Screen NEG MDM Medical Decision Making Medical Screen Exam Complete: Yes Emergency Medical Condition: Yes Medical Record Reviewed: Yes Interpretation(s) Last Impressions Upper Extremity Ultrasound 10/03/[id number] Signed Impressions: Service Date/Time: Tuesday, October 03, 2017 22:10 - CONCLUSION: Negative for deep venous thrombosis upper extremity. Antoni Toussaint MD Head CT [id number]/03/[id number] Signed Impressions: Service Date/Time: Tuesday, October 03, 2017 22:51 - CONCLUSION: 1. Negative noncontrast CT brain. Antoni Toussaint MD Chest X-Ray [id number]/03/[id number] Signed Impressions: Service Date/Time: Tuesday, October 03, 2017 22:04 - CONCLUSION: No acute disease. Andi Rick MD Differential Diagnosis Cellulitis, versus compartment syndrome, versus early access, versus tendinitis , versus sepsis, versus bacteremia, versus endocarditis Narrative Course During the course of the patients emergency department visit, the patients history, examination, and differential diagnosis were reviewed with the patient. The patient was placed on a lacing string cutter with oximetry and frequent blood pressure monitoring. The patient had IV access obtained and blood work sent for analysis. Blood cultures 2 were ordered, lactic acid was sent for analysis. The patient was initially provided broad-spectrum antibiotics including vancomycin 1 g IV, Zosyn 3.375 g IV, normal saline IV fluids were started and after his white blood cell count came back elevated and increased suspicion for sepsis was noted the patient was started on 30 ml/ KG normal saline IV fluid bolus. The patient was given morphine for pain, Zofran for nausea. The patients laboratory studies were reviewed and remarkable for a white count 20.7, hemoglobin 12.5, platelets 97 with 74 neutrophils and 16 lymphocytes 8, toxic vacuolation present, sedimentation rate is 43, CMP is remarkable for sodium of 128, chloride 92, BUN 29, GFR 65, total bilirubin 1.5, AST 124, ALT 495, alkaline phosphatase 274. CPK is 473 with 2.0 MB percent, troponin I less than 0.02, C-reactive protein 20, albumin 3.2, lipase 75, BNP 8, lactic acid 1.6 , PT 9.9, PTT 36.9, urine drug screen is positive for amphetamines and cocaine, salicylate less than 1.7, acetaminophen less than 2, alcohol level less than 3, urinalysis shows small occult blood Radiology studies were reviewed and remarkable for an ultrasound of the left upper extremity that shows no evidence of DVT, chest x-ray shows no evidence of acute cardiopulmonary disease, CT scan of the brain was negative for acute abnormality. The patients results were discussed with the patient, including the plan of care. I explained that further testing and/ or monitoring is indicated based on the patients history, examination, and/ or laboratory findings. Therefore, I recommended admission for additional evaluation. The patient expressed understanding and was agreeable with this plan. The patient was admitted to the hospital in guarded condition and sent to a bed under the care of the [facility] service. Critical Care Narrative Aggregate critical care time was 38 minutes. Time to perform other separately billable procedures was not included in the critical care time. My time did not include minutes spent treating any other patients simultaneously or on activities that did not directly contribute to the patient's treatment. The services I provided to this patient were to treat and/or prevent clinically significant deterioration that could result in: Cardiovascular collapse related to sepsis, versus compartment syndrome, versus fluid overload with respiratory failure related to over resuscitation. I provided critical care services requiring my management, as noted below: Chart data review, documentation time, medication orders and management, vital sign assessments/reviewing monitor data, ordering and reviewing lab tests, ordering and interpreting/reviewing x-rays and diagnostic studies, care of the patient and discussion of the patient with the admitting physicians. Sepsis Criteria SIRS Criteria (2 or more): Heart rate over 90, WBC > 85097, < 4000 or > 10% bands Sepsis Criteria (SIRS+source): Infect source susp/known Criteria Outcome: Meets SIRS criteria, Meets sepsis criteria Physician Communication Physician Communication The patient's case including history, pertinent physical examination findings, and laboratory studies were discussed with Dr. Cardoso. It was agreed that the patient would be admitted to the [facility] service. Diagnosis Primary Impression: Cellulitis of upper extremity Qualified Codes: L03.114 - Cellulitis of left upper limb Additional Impression: Sepsis Qualified Codes: A41.9 - Sepsis, unspecified organism Admitting Information Admitting Physician Requests: it Cyndie Fortune MD Oct 03, 2017 21:43
[2017-10-03] MEDS ORDERED: SODIUM CHLOR 0.9% 1000 ML INJ 1,000 ML IV ONE ×3 (21:45→22:52)
[2017-10-03] MEDS ORDERED: VANCOMYCIN INJ 1,000 MG in SODIUM CHLOR 0.9% 250 ML INJ 250 ML IV ONE (21:45)
[2017-10-03] MEDS ORDERED: PIPERACIL-TAZO 3.375 GM PREMIX 50 ML IV ONE (21:45)
[2017-10-03 22:17] LABS: HEMATOCRIT 35.9 % (39.0-51.0); MEAN CELL VOLUME 84.9 FL (80.0-100.0); MEAN CORPUSCULAR HEMOGLOBIN 29.5 PG (27.0-34.0); MEAN CORPUSCULAR HGB CONC 34.7 % (32.0-36.0); PLATELET COUNT 97 TH/MM3 (150-450); RED BLOOD COUNT 4.23 MIL/MM3 (4.50-5.90); RED CELL DISTRIBUTION WIDTH 13.7 % (11.6-17.2); WHITE BLOOD COUNT 20.7 TH/MM3 (4.0-11.0)
--- NOTE | 2017-10-03 22:19 | RADRPT ---
EXAM DATE/TIME: 10/03/2017 22:04 [facility] COMPARISON: No previous studies available for comparison. INDICATIONS : Short of breath and arm pain. MEDICAL HISTORY : IV drug use. SURGICAL HISTORY : None. ENCOUNTER: Subsequent ACUITY: 2 days PAIN SCORE: 7/10 LOCATION: Left forearm FINDINGS: A single view of the chest demonstrates the lungs to be symmetrically aerated without evidence of mas s, infiltrate or effusion. The cardiomediastinal contours are unremarkable. Osseous structures are intact. CONCLUSION: No acute disease. Andi Rick MD on October 03, 2017 at 22:18 Board Certified Radiologist. This report was verified electronically.
[2017-10-03 22:24] LABS: HEMO FLAGS AUTO DIFF
[2017-10-03 22:37] LABS: APTT (PATIENT) 36.9 SEC (24.3-30.1); PROTHROMBIN TIME - PATIENT 9.9 SEC (9.8-11.6)
[2017-10-03 22:48] LABS: BANDS 16 % (0-6); METAMYELOCYTES 1 % (0-1); NEUTROPHIL # MANUAL DIFF 18.8 TH/MM3 (1.8-7.7); POLYS (SEG NEUTROPHILS) 74 % (16-70); WBC DIFF SAMPLE 100
[2017-10-03 22:50] LABS: DOHLE BODIES PRESENT (NONE SEEN); PLATELET ESTIMATE SMEAR LOW (NORMAL); PLATELET MORPHOLOGY ENLARGED (NORMAL); SCAN/DIFF FINAL DIFF MANUAL; TOXIC VACUOLATION PRESENT (NONE SEEN)
[2017-10-03] MEDS ORDERED: SODIUM CHLOR 0.9% 1000 ML INJ 400 ML IV ONE (22:52)
[2017-10-03 23:01] LABS: ALKALINE PHOSPHATASE 274 U/L (45-117); ALT (GPT) 495 U/L (12-78); ANION GAP 7 MEQ/L (5-15); AST (GOT) 124 U/L (15-37); BICARBONATE 28.9 MEQ/L (21.0-32.0); BLOOD UREA NITROGEN 29 MG/DL (7-18); CHLORIDE 92 MEQ/L (98-107); CREATINE KINASE 473 U/L (39-308); GLOMERULAR FILTRATION RATE 65 ML/MIN (>89); SODIUM (NA) 128 MEQ/L (136-145); TOTAL BILIRUBIN ADULT 1.5 MG/DL (0.2-1.0)
[2017-10-03 23:02] LABS: ACETAMINOPHEN LESS THAN 2.0 MCG/ML (10.0-30.0); ALCOHOL LESS THAN 3 MG/DL (0-5); POTASSIUM 3.8 MEQ/L (3.5-5.1)
--- NOTE | 2017-10-03 23:12 | RADRPT ---
EXAM DATE/TIME: 10/03/2017 22:10 [facility] COMPARISON: No previous studies available for comparison. INDICATIONS : Left arm pain. MEDICAL HISTORY : Hypertension. Hepatitis C. Substance abuse. ETOH abuse. SURGICAL HISTORY : Hernia repair. Testicular torsion repair. ENCOUNTER: Initial ACUITY: 1 day PAIN SCORE: 7/10 LOCATION: Left arm. FINDINGS: There is spontaneous flow documented in the brachial, basilic, cephalic, axillary, and subclavian vei ns. The vessels are compressible and augmentation response is documented. No filling defects are se en. The flow is phasic with respiration. Direction of flow in the jugular vein is caudal. CONCLUSION: Negative for deep venous thrombosis upper extremity. Antoni Toussaint MD on October 03, 2017 at 23:04 Board Certified Radiologist. This report was verified electronically.
[2017-10-03 23:14] LABS: CKMB 9.6 NG/ML (0.5-3.6)
--- NOTE | 2017-10-03 23:18 | RADRPT ---
EXAM DATE/TIME: 10/03/2017 22:51 [facility] COMPARISON: No previous studies available for comparison. INDICATIONS : Cephalgia. RADIATION DOSE: 56.35 CTDIvol (mGy) MEDICAL HISTORY : Hypertension. SURGICAL HISTORY : None. ENCOUNTER: Initial ACUITY: 1 day PAIN SCALE: 5/10 LOCATION: Bilateral cranial TECHNIQUE: Multiple contiguous axial images were obtained of the head. Using automated exposure control and adj ustment of the mA and/or kV according to patient size, radiation dose was kept as low as reasonably a chievable to obtain optimal diagnostic quality images. DICOM format image data is available electro nically for review and comparison. FINDINGS: CEREBRUM: The ventricles are normal for age. No evidence of midline shift, mass lesion, hemorrhage or acute in farction. No extra-axial fluid collections are seen. POSTERIOR FOSSA: The cerebellum and brainstem are intact. The 4th ventricle is midline. The cerebellopontine angle i s unremarkable. EXTRACRANIAL: The visualized portion of the orbits is intact. SKULL: The calvaria is intact. No evidence of skull fracture. CONCLUSION: 1. Negative noncontrast CT brain. Antoni Toussaint MD on October 03, 2017 at 23:15 Board Certified Radiologist. This report was verified electronically.
[2017-10-03 23:44] LABS: BLOOD, URINE SMALL (NEG); COMMENT (UR) CULT NOT INDICATED; CULTURE IF INDICATED CULT NOT INDICATED; GLUCOSE,URINE NEG (NEG); GRANULAR CAST, URINE 1 /lpf; KETONE, URINE NEG (NEG); MUCUS URINE FEW /lpf (OCC); NITRITE,URINE NEG (NEG); URINE COLOR YELLOW (YELLW/STRAW)
[2017-10-03] MEDS ORDERED: ONDANSETRON HCL 4 MG/2 ML VIAL IV PUSH ONE (23:45)
[2017-10-03] MEDS ORDERED: MORPHINE SULFATE 8 MG/ML INJ IV PUSH ONE (23:45)
[2017-10-04] VITALS (12 sets, daily range): BP systolic 98–132; BP diastolic 51–72; PULSE 77–116; RESP 18–20; TEMP 96.8–101.1; O2SAT 92–99
[2017-10-04] MEDS ORDERED: Vancomycin Consult Pharmacy 1 EA OTHER SCH (01:00)
[2017-10-04] MEDS ORDERED: NALOXONE HCL 0.4 MG/ML AMP IV PUSH PRN (01:15)
[2017-10-04] MEDS: ENOXAPARIN SODIUM 40 MG/0.4 ML SYRINGE SQ SCH (01:15)
[2017-10-04] MEDS ORDERED: ONDANSETRON HCL 4 MG/2 ML VIAL IVP PRN (01:15)
[2017-10-04] MEDS ORDERED: LORazepam 2 MG TAB PO PRN (01:45)
[2017-10-04] MEDS ORDERED: LORazepam 2 MG/ML VIAL IV PUSH PRN ×3 (01:45)
[2017-10-04] MEDS ORDERED: SODIUM CHLOR 0.9% 1000 ML INJ 1,000 ML IV SCH (01:45)
[2017-10-04] MEDS ORDERED: LORazepam 1 MG TAB PO PRN (01:45)
[2017-10-04] MEDS ORDERED: FLUMAZENIL 0.5 MG/5 ML VIAL IV PUSH PRN (01:45)
[2017-10-04] MEDS: MORPHINE SULFATE 4 MG/ML INJ IV PUSH PRN ×5 (01:47→22:16)
--- NOTE | 2017-10-04 01:47 | HHI.HP ---
HPI Service [facility] Primary Care Physician No Primary Care Physician Admission Diagnosis Cellulitis, Sepsis, r/o Endocarditis, h/o IVDU Diagnoses: Travel History International Travel<30 Days: No Contact w/Intl Traveler <30 Da: No Traveled to Known Affected Are: No History of Present Illness 37-year-old male with a past medical history significant for IV drug abuse and hepatitis C presents to the emergency department with severe left upper extremity arm pain that began this morning. The patient endorses subjective fever/chills and generalized malaise. The patient was discharged from the hospital on 08/30/17 where he was treated for bilateral upper extremity cellulitis with I&D of an abscess in the left forearm. Wound culture grew group A beta strep. The patient was transitioned to oral antibiotics and discharged. Patient has a leukocytosis 20.7. Afebrile but tachycardic to 118. Lactic acid 1.6. Review of Systems Subjective fever/chills fever or chills Denies blurry vision, otorrhea, rhinorrhea Denies sore throat and cough No chest pain, palpitations, shortness of breath No abdominal pain Denies constipation/diarrhea/nausea/vomiting Denies muscle pain/weakness No rashes Past Family Social History Past Medical History Hepatitis C IV drug abuse Past Surgical History I&D of left forearm Testicular torsion Reported Medications None Allergies: Coded Allergies: No Known Allergies (Verified Allergy, Unknown, 10/03/17) Family History Father with CAD Social History Positive alcohol. 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 Smokes approximately 1 pack per day 20 years. Uses benzos and muscle relaxers "whenever he can." Physical Exam Vital Signs Vital Signs Date Time Temp Pulse Resp B/P (MAP) Pulse Ox O2 Delivery O2 Flow Rate FiO2 10/04/17 00:10 115 20 119/57 (77) 98 Room Air 10/04/17 00:06 16 10/03/17 21:53 104 36 10/03/17 20:43 98.7 110 18 116/64 (81) 100 Room Air Physical Exam GENERAL: male lying in bed SKIN: Left upper extremity with erythema along the forearm and posterior hand. No areas of fluctuance or induration noted. Track xavier in the bilateral upper extremities. HEAD: Atraumatic. Normocephalic. No temporal or scalp tenderness. EYES: Pupils equal round and reactive. Extraocular motions intact. No scleral icterus. No injection or drainage. ENT: Nose without bleeding, purulent drainage or septal hematoma. Throat without erythema, tonsillar hypertrophy or exudate. Uvula midline. Airway patent. NECK: Trachea midline. No JVD or lymphadenopathy. Supple, nontender, no meningeal signs. CARDIOVASCULAR: Regular rate and rhythm without murmurs, gallops, or rubs. RESPIRATORY: Clear to auscultation. Breath sounds equal bilaterally. No wheezes , rales, or rhonchi. GASTROINTESTINAL: Abdomen soft, non-tender, nondistended. No hepato-splenomegaly , or palpable masses. No guarding. MUSCULOSKELETAL: 1+ pitting edema in bilateral lower extremities. No calf tenderness. Negative Homans sign bilaterally. NEUROLOGICAL: Awake and alert. Cranial nerves II through XII intact. Motor and sensory grossly within normal limits. Normal speech. Laboratory Laboratory Tests Test 10/03/17 21:40 10/03/17 23:25 White Blood Count 20.7 Red Blood Count 4.23 Hemoglobin 12.5 Hematocrit 35.9 Mean Corpuscular Volume 84.9 Mean Corpuscular Hemoglobin 29.5 Mean Corpuscular Hemoglobin Concent 34.7 Red Cell Distribution Width 13.7 Platelet Count 97 Mean Platelet Volume 11.2 CBC Comment AUTO DIFF Differential Total Cells Counted 100 Neutrophils % (Manual) 74 Band Neutrophils % 16 Lymphocytes % 8 Monocytes % 1 Neutrophils # (Manual) 18.8 Metamyelocytes 1 Differential Comment FINAL DIFF MANUAL Toxic Vacuolation PRESENT Dohle Bodies PRESENT Platelet Estimate LOW Platelet Morphology Comment ENLARGED Erythrocyte Sedimentation Rate 43 Prothrombin Time 9.9 Prothromb Time International Ratio 1.0 Activated Partial Thromboplast Time 36.9 Blood Urea Nitrogen 29 Creatinine 1.26 Random Glucose 79 Total Protein 7.4 Albumin 3.2 Calcium Level 8.6 Magnesium Level 2.0 Alkaline Phosphatase 274 Aspartate Amino Transf (AST/SGOT) 124 Alanine Aminotransferase (ALT/SGPT) 495 Total Bilirubin 1.5 Sodium Level 128 Potassium Level 3.8 Chloride Level 92 Carbon Dioxide Level 28.9 Anion Gap 7 Estimat Glomerular Filtration Rate 65 Lactic Acid Level 1.6 Total Creatine Kinase 473 Creatine Kinase MB 9.6 Creatine Kinase MB % 2.0 Troponin I LESS THAN 0.02 C-Reactive Protein 20.00 B-Type Natriuretic Peptide 8 Lipase 75 Salicylates Level LESS THAN 1.7 Acetaminophen Level LESS THAN 2.0 Ethyl Alcohol Level LESS THAN 3 Urine Color YELLOW Urine Turbidity CLEAR Urine pH 5.0 Urine Specific [place] 1.010 Urine Protein TRACE Urine Glucose (UA) NEG Urine Ketones NEG Urine Occult Blood SMALL Urine Nitrite NEG Urine Bilirubin NEG Urine Urobilinogen 2.0 Urine Leukocyte Esterase NEG Urine RBC 1 Urine WBC 3 Urine Amorphous Sediment RARE Urine Granular Casts 1 Urine Mucus FEW Microscopic Urinalysis Comment CULT NOT INDICATED Urine Opiates Screen NEG Urine Barbiturates Screen NEG Urine Amphetamines Screen POS Urine Benzodiazepines Screen NEG Urine Cocaine Screen POS Urine Cannabinoids Screen NEG Date/Time Source Procedure Growth Status 10/03/17 21:40 Blood Peripheral Aerobic Blood Culture Pending Received 10/03/17 21:40 Blood Peripheral Anaerobic Blood Culture Pending Received Result Diagram: 10/03/17213910/03/172139 Caprini VTE Risk Assessment Caprini VTE Risk Assessment: No/Low Risk (score <= 1) Caprini Risk Assessment Model Point Value = 1 Point Value = 2 Point Value = 3 Point Value = 5 Age 41-60 Minor surgery BMI > 25 kg/m2 Swollen legs Varicose veins or History of unexplained or recurrent spontaneous Oral contraceptives or hormone replacement Sepsis (< 1 month) Serious lung disease, including pneumonia (< 1 month) Abnormal pulmonary function Acute myocardial infarction Congestive heart failure (< 1 month) History of inflammatory bowel disease Medical patient at bed rest Age 61-74 Arthroscopic surgery Major open surgery (> 45 min) Laparoscopic surgery (> 45 min) Malignancy Confined to bed (> 72 hours) Immobilizing plaster cast Central venous access Age >= 75 History of VTE Family history of VTE Factor V Leiden Prothrombin [id number] Lupus anticoagulant Anticardiolipin antibodies Elevated serum homocysteine Heparin-induced thrombocytopenia Other congenital or acquired thrombophilia Stroke (< 1 month) Elective arthroplasty Hip, pelvis, or leg fracture Acute spinal cord injury (< 1 month) Prophylaxis Regimen Total Risk Factor Score Risk Level Prophylaxis Regimen 0-1 Low Early ambulation 2 Moderate Order ONE of the following: *Sequential Compression Device (SCD) *Heparin 5000 units SQ BID 3-4 Higher Order ONE of the following medications: *Heparin 5000 units SQ TID *Enoxaparin/Lovenox 40 mg SQ daily (WT < 150 kg, CrCl > 30 mL/min) *Enoxaparin/Lovenox 30 mg SQ daily (WT < 150 kg, CrCl > 10-29 mL/min) *Enoxaparin/Lovenox 30 mg SQ BID (WT < 150 kg, CrCl > 30 mL/min) AND/OR *Sequential Compression Device (SCD) 5 or more Highest Order ONE of the following medications: *Heparin 5000 units SQ TID (Preferred with Epidurals) *Enoxaparin/Lovenox 40 mg SQ daily (WT < 150 kg, CrCl > 30 mL/min) *Enoxaparin/Lovenox 30 mg SQ daily (WT < 150 kg, CrCl > 10-29 mL/min) *Enoxaparin/Lovenox 30 mg SQ BID (WT < 150 kg, CrCl > 30 mL/min) AND *Sequential Compression Device (SCD) Assessment and Plan Assessment and Plan Assessment/plan: 1. Sepsis/left upper extremity cellulitis Patient tachycardic with leukocytosis Concern for endocarditis, echo pending Blood cultures pending Vancomycin/Zosyn IVF fluid resuscitation Morphine for pain 2. Hepatitis C/transaminitis Patient with history of hepatitis C, not currently undergoing treatment Monitor LFTs 3. IV drug abuse/alcohol abuse Cessation counseling provided Thiamine/folate/multivitamin CIWA protocol FEN Heart healthy diet NS at 75 cc/hr Electrolytes: Monitor and replete prn SCDs Case discussed with ER physician T rashad Physician Certification 2 Midnight Certification Type: Admission for Inpatient Services Order for Inpatient Services The services are ordered in accordance with Medicare regulations or non- Medicare payer requirements, as applicable. In the case of services not specified as inpatient-only, they are appropriately provided as inpatient services in accordance with the 2-midnight benchmark. Estimated LOS (days): 2 2 days is the estimated time the patient will need to remain in the hospital, assuming treatment plan goals are met and no additional complications. Post-Hospital Plan: Not yet determined Natacha Cardoso MD Oct 04, 2017 01:47
[2017-10-04] MEDS: ACETAMINOPHEN 325 MG TAB PO PRN ×2 (01:48→15:52)
[2017-10-04] MEDS ORDERED: VANCOMYCIN 1,000 MG/NS 250 ML IV ONE ×2 (02:30)
[2017-10-04] MEDS: PIPERACIL-TAZO 3.375 GM PREMIX 50 ML IV SCH ×4 (04:27→22:17)
[2017-10-04 06:08] LABS: ALKALINE PHOSPHATASE 254 U/L (45-117); ALT (GPT) 370 U/L (12-78); ANION GAP 6 MEQ/L (5-15); AST (GOT) 85 U/L (15-37); BICARBONATE 27.6 MEQ/L (21.0-32.0); BLOOD UREA NITROGEN 19 MG/DL (7-18); CHLORIDE 102 MEQ/L (98-107); GLOMERULAR FILTRATION RATE 85 ML/MIN (>89); POTASSIUM 3.5 MEQ/L (3.5-5.1); SODIUM (NA) 136 MEQ/L (136-145); TOTAL BILIRUBIN ADULT 1.2 MG/DL (0.2-1.0)
[2017-10-04] MEDS: SODIUM CHLORIDE 0.9% FLUSH 10 ML FLUSH IV FLUSH SCH ×2 (09:00→22:16)
[2017-10-04] MEDS: MULTIVITAMINS/MINERALS THERAPEUTIC TAB PO SCH (10:04)
[2017-10-04] MEDS: THIAMINE HCL 100 MG TAB PO SCH (10:04)
[2017-10-04] MEDS: FOLIC ACID 1 MG TAB PO SCH (10:04)
[2017-10-04] MEDS: VANCOMYCIN INJ 1,750 MG in SODIUM CHLORID 0.9% 500 ML INJ 500 ML IV SCH ×2 (11:30→23:00)
--- NOTE | 2017-10-04 13:40 | EKG ---
Date Performed: 10/03/2017 Time Performed: 22:52:19 PTAGE: 37 years EKG: SINUS TACHYCARDIA ARTIFACT IN LEAD V2 ABNORMAL RHYTHM ECG Compared to prior tracing no sign ificant change PREVIOUS TRACING : 09/28/2017 18.30 DOCTOR: Kemar Fortune Interpretating Date/Time 10/04/2017 13:38:23
--- NOTE | 2017-10-04 14:05 | HHI.PR ---
Subjective Remarks Follow-up upper extremity cellulitis/abscess. The patient is reporting significant pain in both upper extremities, left greater than right. Denies cough, dyspnea, chest pain. Objective Vitals Vital Signs Date Time Temp Pulse Resp B/P (MAP) Pulse Ox O2 Delivery O2 Flow Rate FiO2 10/04/17 12:11 97.4 108 20 132/70 (90) 92 10/04/17 07:40 96.8 92 20 114/72 (86) 99 10/04/17 05:33 98.0 77 18 98/55 (69) 95 10/04/17 02:52 98.7 97 18 104/51 (68) 92 10/04/17 02:52 10/04/17 02:24 20 10/04/17 02:24 20 10/04/17 00:10 115 20 119/57 (77) 98 Room Air 10/04/17 00:06 16 10/03/17 21:53 104 36 10/03/17 20:43 98.7 110 18 116/64 (81) 100 Room Air I/O 10/03/17 10/03/17 10/03/17 10/04/17 10/04/17 10/04/17 07:00 15:00 23:00 07:00 15:00 23:00 Intake Total 914 ml Output Total 950 ml Balance -36 ml Intake Oral 240 ml IV Total 674 ml Output Urine Total 950 ml # Bowel Movements 0 Result Diagram: 10/03/17213910/04/178 Imaging Last Impressions Upper Extremity Ultrasound 10/03/172144 Signed Impressions: Service Date/Time: Tuesday, October 03, 2017 22:10 - CONCLUSION: Negative for deep venous thrombosis upper extremity. Antoni Toussaint MD Head CT 10/03/172133 Signed Impressions: Service Date/Time: Tuesday, October 03, 2017 22:51 - CONCLUSION: 1. Negative noncontrast CT brain. Antoni Toussaint MD Chest X-Ray 10/03/172133 Signed Impressions: Service Date/Time: Tuesday, October 03, 2017 22:04 - CONCLUSION: No acute disease. Andi Rick MD Objective Remarks General: No acute distress. Heart: Regular rate and rhythm. No murmur. Lungs: Clear to auscultation bilaterally. No wheezes, rales, or rhonchi. Breathing is nonlabored. Abdomen: Soft, nontender, nondistended. Extremities: Trace bilateral lower extremity edema. Left hand and forearm swollen with areas of overlying erythema. Small areas of erythema and swelling on the right forearm, possible fluctuance. Psych: Alert and oriented. Procedures None Urinary Catheter: No Vascular Central Line Catheter: No A/P Assessment and Plan 1. Sepsis secondary to cellulitis/abscess of the eye lateral upper extremities: Patient presented with tachycardia, leukocytosis. Concern for endocarditis given history of IV drug abuse. Echocardiogram ordered. Blood cultures are pending. Continue IV antibiotics. Consult hand surgery, infectious disease. 2. Hepatitis C: Patient has elevated LFTs. He has history of hep C, but has not been undergoing treatment. Monitor labs. 3. IV drug abuse, alcohol abuse: Patient has been counseled. Continue thiamine, folate, multivitamin. [facility] protocol. 4. Hyponatremia: Improved. 5. DVT prophylaxis: SCDs. Pawel Julian MD Oct 04, 2017 14:05
[2017-10-04] MEDS: NS + KCL 20 MEQ INJ 1,000 ML IV SCH (15:11)
--- NOTE | 2017-10-04 17:32 | ECHRPT ---
Indication: SEPSIS R/O ENDOCARDITIS CONCLUSIONS Normal left ventricular size. Wall thickness is normal. Normal LV systolic function, EF 60-65%. Mild mitral valve regurgitation. There is trace tricuspid valve regurgitation. Moderate pulmonary hypertension. The estimated pulmonary arterial pressure is 64 mmHg. BP: 98 / 55 HR: 77 Rhythm: Sinus MEASUREMENTS (Male / Female) Normal Values Technical Quality:Fair 2D ECHO LV Diastolic Diameter PLAX 5.1 cm 4.2 - 5.9 / 3.9 - 5.3 cm LV Systolic Diameter PLAX 3.7 cm IVS Diastolic Thickness 0.8 cm 0.6 - 1.0 / 0.6 - 0.9 cm LVPW Diastolic Thickness 0.9 cm 0.6 - 1.0 / 0.6 - 0.9 cm LV Relative Wall Thickness 0.3 RV Internal Dim ED PLAX 3.6 cm LVOT Diameter 2.7 cm Aortic Root Diameter 3.2 cm LA Systolic Diameter LX 3.3 cm 3.0 - 4.0 / 2.7 - 3.8 cm M-MODE AV Cusp Separation MM 2.8 cm DOPPLER AV Peak Velocity 143.0 cm/s AV Peak Gradient 8.2 mmHg AV Mean Gradient 4.0 mmHg AV Velocity Time Integral 19.0 cm LVOT Peak Velocity 113.0 cm/s LVOT Peak Gradient 5.1 mmHg LVOT Velocity Time Integral 16.2 cm AV Area Cont Eq vti 4.9 cm AV Area Cont Eq pk 4.5 cm Mitral E Point Velocity 58.7 cm/s Mitral A Point Velocity 71.1 cm/s Mitral E to A Ratio 0.8 LV E' Lateral Velocity 9.9 cm/s Mitral E to LV E' Lateral Ratio 5.9 LV E' Septal Velocity 10.0 cm/s Mitral E to LV E' Septal Ratio 5.9 TR Peak Velocity 368.0 cm/s TR Peak Gradient 54.2 mmHg Right Atrial Pressure 10.0 mmHg Pulmonary Artery Systolic Pressu 64.2 mmHg Right Ventricular Systolic Press 64.2 mmHg PV Peak Velocity 65.4 cm/s PV Peak Gradient 1.7 mmHg FINDINGS LEFT VENTRICLE Normal left ventricular size. Wall thickness is normal. The left ventricular systolic function is normal with an estimated ejection fraction in the range of 60-65%. RIGHT VENTRICLE Normal right ventricular size and systolic function. LEFT ATRIUM The left atrial size is normal. RIGHT ATRIUM The right atrial size is normal. ATRIAL SEPTUM Normal atrial septal thickness without atrial level shunting by limited color doppler interrogation. AORTA The aortic root and proximal ascending aorta are normal in size on limited imaging. MITRAL VALVE Mild mitral valve regurgitation. AORTIC VALVE Trileaflet aortic valve. No aortic valve stenosis or regurgitation. TRICUSPID VALVE There is trace tricuspid valve regurgitation. The estimated pulmonary arterial pressure is 64 mmHg. PULMONARY VALVE The pulmonary valve is not well visualized. VESSELS The inferior vena cava is normal in size. PERICARDIUM No pericardial effusion. José Luis Sun MD, FACC (Electronically Signed) Final Date:04 October 2017 17:31
--- NOTE | 2017-10-04 18:13 | RADRPT ---
EXAM DATE/TIME: 10/04/2017 17:37 [facility] COMPARISON: No previous studies available for comparison. INDICATIONS : Left arm swelling and pain. MEDICAL HISTORY : Hypertension. Hepatitis C. Substance abuse. ETOH abuse. SURGICAL HISTORY : Hernia repair. Testicular torsion repair. ENCOUNTER: Subsequent ACUITY: 2 days PAIN SCORE: 7/10 LOCATION: Left arm. AREA EVALUATED: Left posterior hand. FINDINGS: MASSES: None. FLUID COLLECTIONS: None. OTHER: Soft tissue swelling and hyperemic changes are noted. CONCLUSION: Soft tissue swelling with hyperemic changes but no evidence of abscess. Maurice Rodríguez MD on October 04, 2017 at 18:11 Board Certified Radiologist. This report was verified electronically.
--- NOTE | 2017-10-04 18:21 | MB ---
cc: JUSTIN AREVALO MD DATE OF CONSULTATION 10/04/2017 REASON FOR CONSULTATION Left hand infection. HISTORY OF THE PRESENT ILLNESS The patient is a 37-year-old right-hand dominant male with history of IV drug abuse and hepatitis C presented with complaints of worsening pain involving the left hand for past [id number] days. The patient was seen by me for similar complaints involving the left forearm for which he underwent incision and drainage of abscess about 4 weeks ago. The patient had cultures which grew group A beta streptococcus. The patient is presenting today with worsening symptoms involving the left hand. Denies any tingling or numbness. He also complains of fever and chills. PAST MEDICAL HISTORY Significant for: 1. IV drug abuse. 2. Hepatitis C. PAST SURGICAL HISTORY Significant for incision and drainage of the left forearm. PHYSICAL EXAMINATION GENERAL: The patient is drowsy but he does respond to oral commands. EXTREMITIES: Examination of left upper extremity reveals healed surgical scar over the dorsal aspect of the mid forearm. Swelling over the dorsal aspect of the hand and wrist noted. Needle xavier noted over the dorsal aspect of the hand. Exquisite tenderness noted over the dorsal aspect of the hand and extensor retinaculum of the wrist. Range of motion of the wrist is associated with pain. Pain is also increased with finger range of motion. On making a fist he has finger to palm distance of about 2-3 cm. He has intact capillary refill distally. He has intact distal sensation. No tenderness is noted over the previous surgical incision site or the dorsal aspect of the forearm. No evidence of signs of angulation noted surrounding the scar. LABORATORY DATA His white count was reviewed. He has white count of 20.7 with neutrophil shift of 74%. IMAGING He had an ultrasound which showed no evidence of DVT. ASSESSMENT A 37-year-old male with cellulitis / abscess / extensor tenosynovitis involving the left hand / wrist. PLAN Will be to get an ultrasound of the soft tissue of the left hand and wrist. Keep the limb elevated. Keep the patient n.p.o. for incision and drainage of left hand abscess. The patient and his mother have been explained the risks and benefits of the procedure. We will continue with IV antibiotics. Justin Arevalo MD SE/PAT /5:11 PM /6:03 PM [facility]atrina
[2017-10-04] MEDS ORDERED: HYDROmorphone HCL PF 2 MG/ML VIAL ONE (23:29)
[2017-10-04] MEDS ORDERED: BACITRACIN TOP OINT 15 GM TUBE ONE (23:39)
[2017-10-04] MEDS ORDERED: VANCOMYCIN HCL 1000 MG VIAL ONE (23:39)
[2017-10-05] VITALS (13 sets, daily range): BP systolic 127–201; BP diastolic 60–96; PULSE 69–97; RESP 17–18; TEMP 97.7–99.1; O2SAT 94–99
[2017-10-05] MEDS ORDERED: NEOMYCIN/POLYMYXIN 1 ML G.U. IRRIGANT ONE (00:05)
--- NOTE | 2017-10-05 00:41 | PD.OP ---
Operative Report Preoperative Diagnosis: (1) Abscess of left hand Postoperative Diagnosis: (1) Extensor tenosynovitis of left wrist (2) Abscess of left hand Procedure: incision and drainage left hand extensor tenosynovectomy left hand/wrist Anesthesia: general Surgeon: Jakob Watson Drawbench Operator(s): wei Operation and Findings: impending abscess formation extensor tenosynovitis left hand and wrist Jakob Watson MD Oct 05, 2017 00:41
[2017-10-05] MEDS ORDERED: DO NOT ADM ANY ANTICOAGULANT DRUGS PRN (00:46)
[2017-10-05] MEDS ORDERED: *HYDROmorphone PF 1 MG VIAL PERIprocedural Use ONLY ONE (01:03)
[2017-10-05] MEDS: PIPERACIL-TAZO 3.375 GM PREMIX 50 ML IV SCH ×4 (02:23→23:01)
[2017-10-05] MEDS: ENOXAPARIN SODIUM 40 MG/0.4 ML SYRINGE SQ SCH (02:24)
[2017-10-05] MEDS: MORPHINE SULFATE 4 MG/ML INJ IV PUSH PRN ×6 (02:24→22:58)
[2017-10-05] MEDS: NS + KCL 20 MEQ INJ 1,000 ML IV SCH ×2 (03:35→17:59)
[2017-10-05] MEDS: SODIUM CHLORIDE 0.9% FLUSH 10 ML FLUSH IV FLUSH PRN ×2 (06:19→18:00)
[2017-10-05 06:43] LABS: BASOPHIL % 0.3 % (0.0-2.0); EOSINOPHIL % 0.2 % (0.0-4.0); HEMATOCRIT 33.8 % (39.0-51.0); LYMPH % 13.7 % (9.0-44.0); LYMPHOCYTE # 1.2 TH/MM3 (1.0-4.8); MEAN CELL VOLUME 86.6 FL (80.0-100.0); MEAN CORPUSCULAR HEMOGLOBIN 29.8 PG (27.0-34.0); MEAN CORPUSCULAR HGB CONC 34.4 % (32.0-36.0); NEUT % 78.8 % (16.0-70.0); PLATELET COUNT 81 TH/MM3 (150-450); RED BLOOD COUNT 3.91 MIL/MM3 (4.50-5.90); RED CELL DISTRIBUTION WIDTH 14.2 % (11.6-17.2); WHITE BLOOD COUNT 8.9 TH/MM3 (4.0-11.0)
[2017-10-05 06:56] LABS: HEMO FLAGS AUTO DIFF
[2017-10-05 07:04] LABS: ANION GAP 5 MEQ/L (5-15); AST (GOT) 66 U/L (15-37); BICARBONATE 28.8 MEQ/L (21.0-32.0); BLOOD UREA NITROGEN 11 MG/DL (7-18); CHLORIDE 103 MEQ/L (98-107); GLOMERULAR FILTRATION RATE 101 ML/MIN (>89); POTASSIUM 3.7 MEQ/L (3.5-5.1); SODIUM (NA) 137 MEQ/L (136-145)
[2017-10-05 07:07] LABS: ALKALINE PHOSPHATASE 342 U/L (45-117); ALT (GPT) 266 U/L (12-78)
--- NOTE | 2017-10-05 07:57 | MP ---
cc: JUSTIN AREVALO MD DATE OF SURGERY: 10/05/2017 PREOPERATIVE DIAGNOSIS Abscess left hand. POSTOPERATIVE DIAGNOSIS 1. Abscess left hand. 2. Extensor tenosynovitis left hand and wrist. PROCEDURE 1. Incision and drainage left hand abscess. 2. Extensor tenosynovectomy left hand and wrist. SURGEON Dr. Arevalo. ANESTHESIA General. ESTIMATED BLOOD LOSS Minimal. TOURNIQUET TIME 20 minutes at 250 mmHg. SPECIMEN Specimen was sent for culture and sensitivity. DISPOSITION The patient was awakened and sent to the recovery room in stable condition. INDICATION The patient is a 37-year-old IV drug abuser who presented with complaints of pain and swelling involving the left hand and wrist with associated chills and rigors. On examination he had tenderness over the dorsal aspect of the hand and wrist. Range of motion of the hand and wrist was associated with pain. He had an elevated white count of 20,000 with shift in neutrophils. The patient was consented for incision and drainage of left hand abscess. He was explained the risks and benefits of the procedure. DETAILS OF PROCEDURE The patient was brought to the operating room under general anesthesia. The left upper extremity was thoroughly prepped and draped. The incision site was marked over the dorsal aspect of the hand measuring about 3-4 cm, extending onto the dorsal aspect of the wrist. After limb elevation the tourniquet was inflated to 250 mmHg. An incision was made over the proposed incision site. Soft tissue dissection was carried out. On exploration there was evidence of impending abscess formation around the extensor tendons over the dorsal aspect of the hand and this was extending onto the subfascial region as well. Material was sent for culture and sensitivity. There was also evidence of extensor tenosynovium around the 4th extensor compartment. Excision and debridement of the tenosynovium was carried out with excision and debridement of inflammatory granulation tissue around the extensor tendons were also carried out. Thorough wash of the wound was carried out using normal saline mixed with irrigant. About a liter of solution was used. The tourniquet was deflated. Total tourniquet time was 20 minutes. He had good distal circulation on release of the tourniquet. Bleeding points were cauterized with bipolar cautery. Packing of the wound was carried out with Iodoform packing material and the wound was loosely approximated using 4-0 nylon in a horizontal mattress interrupted fashion. Bulky hand dressing was applied which was held in place by Sof-Rol and bias hand wrap. The patient was awakened and sent to the recovery room in stable condition. Plan will be to continue with limb elevation and IV antibiotics. Justin Arevalo MD SE/MANJU /12:42 AM /7:31 AM [facility]rina
[2017-10-05 08:21] LABS: BANDS 20 % (0-6); NEUTROPHIL # MANUAL DIFF 7.8 TH/MM3 (1.8-7.7); PLASMA CELLS 2 % (0-0); PLATELET ESTIMATE SMEAR LOW (NORMAL); PLATELET MORPHOLOGY NORMAL (NORMAL); POLYS (SEG NEUTROPHILS) 68 % (16-70); WBC DIFF SAMPLE 100
[2017-10-05 08:23] LABS: SCAN/DIFF FINAL DIFF MANUAL
[2017-10-05] MEDS: THIAMINE HCL 100 MG TAB PO SCH (09:56)
[2017-10-05] MEDS: SODIUM CHLORIDE 0.9% FLUSH 10 ML FLUSH IV FLUSH SCH ×2 (09:56→22:57)
[2017-10-05] MEDS: MULTIVITAMINS/MINERALS THERAPEUTIC TAB PO SCH (09:56)
[2017-10-05] MEDS: FOLIC ACID 1 MG TAB PO SCH (09:57)
[2017-10-05] MEDS ORDERED: PNEUMOCOCCAL POLYVALENT INJ 25 MCG/0.5 ML SYR IM ONE (10:00)
[2017-10-05] MEDS ORDERED: INFLUENZA VIRUS VACCINE (QUADRIVALENT) 0.5 ML SYR IM ONE (10:00)
[2017-10-05] MEDS ORDERED: PHARMACY ORDERED LAB ONE (10:45)
[2017-10-05] MEDS: VANCOMYCIN INJ 1,750 MG in SODIUM CHLORID 0.9% 500 ML INJ 500 ML IV SCH ×2 (12:45→22:57)
--- NOTE | 2017-10-05 14:59 | PD.ID.CON ---
History of Present Illness Service ID Consult Requested By Dr Parker Reason for Consult sepsis LUE infection Primary Care Physician No Primary Care Physician Diagnoses: History of Present Illness 37 yo IVDU presented with LUE swelling, redness, pain He underwent . Incision and drainage left hand abscess and extensor tenosynovectomy left hand and wrist by Dr. Watson. He had a fever up to 101.4 His blood clx and 2 D echo are negative he is c/ o LUE pain Review of Systems Except as stated in HPI: all other systems reviewed are Neg Past Family Social History Allergies: Coded Allergies: No Known Allergies (Verified Allergy, Unknown, 10/03/17) Past Medical History Hepatitis C IV drug abuse Past Surgical History I&D of left forearm Testicular torsion Active Ordered Medications Medications where reviewed in EMR Antibiotics Include: betzy beasley Family History Father with CAD Social History Positive alcohol. 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 Smokes approximately 1 pack per day 20 years. Uses benzos and muscle relaxers "whenever he can." Physical Exam Vital Signs Vital Signs Date Time Temp Pulse Resp B/P (MAP) Pulse Ox O2 Delivery O2 Flow Rate FiO2 10/05/17 12:00 98.1 81 18 171/79 (109) 96 10/05/17 07:57 98.2 86 18 162/91 (114) 95 10/05/17 04:19 97.9 69 18 131/60 (83) 94 10/05/17 04:00 97 10/05/17 01:51 98.4 84 18 127/75 (92) 98 10/05/17 01:15 84 16 127/71 (89) 97 Nasal Cannula 2 10/05/17 01:00 91 16 117/59 (78) 98 Nasal Cannula 2 10/05/17 00:47 82 16 112/56 (74) 98 Nasal Cannula 2 10/05/17 00:46 97.7 83 15 110/61 (77) 98 Nasal Cannula 2 10/04/17 20:18 98.5 94 18 129/65 (86) 93 10/04/17 20:00 94 10/04/17 17:22 99.8 10/04/17 16:15 108 10/04/17 15:43 101.1 116 18 125/66 (85) 93 Physical Exam CONSTITUTIONAL/GENERAL: This is an adequately nourished patient, in no apparent distress. TUBES/LINES/DRAINS: SKIN: No jaundice, rashes, or lesions. Skin temperature appropriate. Not diaphoretic. HEAD: Atraumatic. Normocephalic. EYES: Pupils equal and round and reactive. Extraocular motions intact. No scleral icterus. No injection or drainage. Fundi not examined. ENT: Hearing grossly normal. Nose without bleeding or purulent drainage. Throat without visible erythema, exudates, masses, or lesions. CARDIOVASCULAR: Regular rate and rhythm without murmurs, gallops, or rubs. No JVD. Peripheral pulses symmetric. RESPIRATORY/CHEST: Symmetric, unlabored respirations. Clear to auscultation. Breath sounds equal bilaterally. No wheezes, rales, or rhonchi. GASTROINTESTINAL: Abdomen soft, non-tender, nondistended. No hepato-splenomegaly , or palpable masses. No guarding. Bowel sounds present. MUSCULOSKELETAL: Extremities without clubbing, cyanosis, or edema. No joint tenderness or effusion noted. No mottling or clubbing. LUE is elevated on IV pole LYMPHATICS: No palpable cervical or supraclavicular adenopathy. NEUROLOGICAL: Awake and alert. Motor and sensory grossly within normal limits. Follows commands. Clear speech . Moves all extremities. PSYCHIATRIC: No obvious anxiety/depression. no apparent hallucinations or other psychotic thought process. Laboratory Laboratory Tests Test 10/05/17 05:50 10/05/17 11:15 White Blood Count 8.9 Red Blood Count 3.91 Hemoglobin 11.6 Hematocrit 33.8 Mean Corpuscular Volume 86.6 Mean Corpuscular Hemoglobin 29.8 Mean Corpuscular Hemoglobin Concent 34.4 Red Cell Distribution Width 14.2 Platelet Count 81 Mean Platelet Volume 9.9 Neutrophils (%) (Auto) 78.8 Lymphocytes (%) (Auto) 13.7 Monocytes (%) (Auto) 7.0 Eosinophils (%) (Auto) 0.2 Basophils (%) (Auto) 0.3 Neutrophils # (Auto) 7.0 Lymphocytes # (Auto) 1.2 Monocytes # (Auto) 0.6 Eosinophils # (Auto) 0.0 Basophils # (Auto) 0.0 CBC Comment AUTO DIFF Differential Total Cells Counted 100 Neutrophils % (Manual) 68 Band Neutrophils % 20 Lymphocytes % 10 Neutrophils # (Manual) 7.8 Differential Comment FINAL DIFF MANUAL Plasma Cells 2 Platelet Estimate LOW Platelet Morphology Comment NORMAL Blood Urea Nitrogen 11 Creatinine 0.86 Random Glucose 163 Total Protein 6.2 Albumin 2.3 Calcium Level 8.4 Alkaline Phosphatase 342 Aspartate Amino Transf (AST/SGOT) 66 Alanine Aminotransferase (ALT/SGPT) 266 Total Bilirubin 1.0 Sodium Level 137 Potassium Level 3.7 Chloride Level 103 Carbon Dioxide Level 28.8 Anion Gap 5 Estimat Glomerular Filtration Rate 101 Vancomycin Level Trough 9.6 Date/Time Source Procedure Growth Status 10/03/17 21:40 Blood Peripheral Aerobic Blood Culture - Preliminary NO GROWTH IN 2 DAYS Resulted 10/03/17 21:40 Blood Peripheral Anaerobic Blood Culture - Preliminary NO GROWTH IN 2 DAYS Resulted 10/05/17 00:04 Abscess Hand Fungal Smear - Final NO FUNGAL ELEMENTS SEEN. Resulted 10/05/17 00:04 Abscess Hand Fungal Culture Pending Resulted Result Diagram: 10/05/17 0550 10/05/17 0550 Imaging Last Impressions Upper Extremity Ultrasound 10/04/17 0000 Signed Impressions: Service Date/Time: Wednesday, October 04, 2017 17:37 - CONCLUSION: Soft tissue swelling with hyperemic changes but no evidence of abscess. Maurice Rodríguez MD Head CT [id number]/03/[id number] Signed Impressions: Service Date/Time: Tuesday, October 03, 2017 22:51 - CONCLUSION: 1. Negative noncontrast CT brain. Antoni Toussaint MD Chest X-Ray [id number]/03/172133 Signed Impressions: Service Date/Time: Tuesday, October 03, 2017 22:04 - CONCLUSION: No acute disease. Andi Rick MD Assessment and Plan Assessment and Plan IVDU Abscess LUE, tenosynovitis cont current abx fu clx Danita Campoverde MD Oct 05, 2017 14:59
--- NOTE | 2017-10-05 15:16 | HHI.PR ---
Subjective Remarks Follow-up left upper extremity cellulitis/abscess. Patient had surgery last night. States that he has worse pain today. His hand is "throbbing". He reports decreased range of motion of his fingers due to swelling. His mother, who is at bedside, indicates that he has not been keeping the hand elevated. Objective Vitals Vital Signs Date Time Temp Pulse Resp B/P (MAP) Pulse Ox O2 Delivery O2 Flow Rate FiO2 10/05/17 12:00 98.1 81 18 171/79 (109) 96 10/05/17 07:57 98.2 86 18 162/91 (114) 95 10/05/17 04:19 97.9 69 18 131/60 (83) 94 10/05/17 04:00 97 10/05/17 01:51 98.4 84 18 127/75 (92) 98 10/05/17 01:15 84 16 127/71 (89) 97 Nasal Cannula 2 10/05/17 01:00 91 16 117/59 (78) 98 Nasal Cannula 2 10/05/17 00:47 82 16 112/56 (74) 98 Nasal Cannula 2 10/05/17 00:46 97.7 83 15 110/61 (77) 98 Nasal Cannula 2 10/04/17 20:18 98.5 94 18 129/65 (86) 93 10/04/17 20:00 94 10/04/17 17:22 99.8 10/04/17 16:15 108 10/04/17 15:43 101.1 116 18 125/66 (85) 93 I/O 10/04/17 10/04/17 10/04/17 10/05/17 10/05/17 10/05/17 07:00 15:00 23:00 07:00 15:00 23:00 Intake Total 914 ml 850 ml 500 ml 100 ml Output Total 950 ml 800 ml 5 ml 300 ml Balance -36 ml 50 ml 495 ml -200 ml Intake Oral 240 ml IV Total 674 ml 850 ml 100 ml Other 500 ml Output Urine Total 950 ml 800 ml 300 ml Estimated Blood Loss 5 ml # Bowel Movements 0 0 Result Diagram: 10/05/17 0550 10/05/17 0550 Imaging Last Impressions Upper Extremity Ultrasound 10/04/17 0000 Signed Impressions: Service Date/Time: Wednesday, October 04, 2017 17:37 - CONCLUSION: Soft tissue swelling with hyperemic changes but no evidence of abscess. Maurice Rodríguez MD Head CT [id number]/03/[id number] Signed Impressions: Service Date/Time: Tuesday, October 03, 2017 22:51 - CONCLUSION: 1. Negative noncontrast CT brain. Antoni Toussaint MD Chest X-Ray [id number]/03/172133 Signed Impressions: Service Date/Time: Tuesday, October 03, 2017 22:04 - CONCLUSION: No acute disease. Andi Rick MD Objective Remarks General: No acute distress. Heart: Regular rate and rhythm. No murmur. Lungs: Clear to auscultation bilaterally. No wheezes, rales, or rhonchi. Breathing is nonlabored. Abdomen: Soft, nontender, nondistended. Extremities: No lower extremity edema. Left hand heavily bandaged. Fingers of the left hand are edematous. Psych: Alert and oriented. Procedures None Urinary Catheter: No Vascular Central Line Catheter: No A/P Assessment and Plan 1. Sepsis secondary to cellulitis/abscess/extensor tenosynovitis of the left upper extremity: Patient presented with tachycardia, leukocytosis. Concern for endocarditis given history of IV drug abuse. Echocardiogram shows normal left ventricular systolic function, moderate pulmonary hypertension, trace tricuspid valve regurgitation, mild mitral valve regurgitation. Blood cultures are negative so far. Continue IV antibiotics. Appreciate hand surgery recommendations. Status post incision and drainage of left hand abscess, extensor tenosynovectomy of the left hand and wrist. Appreciate infectious disease recommendations. 2. Hepatitis C: Patient has elevated LFTs. He has history of hep C, but has not been undergoing treatment. Monitor labs. 3. IV drug abuse, alcohol abuse: Patient has been counseled. Continue thiamine, folate, multivitamin. CIWA protocol. 4. Hyponatremia: Improved. 5. DVT prophylaxis: SCDs. Pawel Julian MD Oct 05, 2017 15:16
--- NOTE | 2017-10-05 17:49 | HHI.PR ---
Subjective Remarks complains of pain no fever denies any numbness Objective Vital Signs Date Time Temp Pulse Resp B/P (MAP) Pulse Ox O2 Delivery O2 Flow Rate FiO2 10/05/17 15:51 97.7 77 18 201/89 (126) 99 10/05/17 12:00 98.1 81 18 171/79 (109) 96 10/05/17 07:57 98.2 86 18 162/91 (114) 95 10/05/17 04:19 97.9 69 18 131/60 (83) 94 10/05/17 04:00 97 10/05/17 01:51 98.4 84 18 127/75 (92) 98 10/05/17 01:15 84 16 127/71 (89) 97 Nasal Cannula 2 10/05/17 01:00 91 16 117/59 (78) 98 Nasal Cannula 2 10/05/17 00:47 82 16 112/56 (74) 98 Nasal Cannula 2 10/05/17 00:46 97.7 83 15 110/61 (77) 98 Nasal Cannula 2 10/04/17 20:18 98.5 94 18 129/65 (86) 93 10/04/17 20:00 94 I/O 10/04/17 10/04/17 10/04/17 10/05/17 10/05/17 10/05/17 07:00 15:00 23:00 07:00 15:00 23:00 Intake Total 914 ml 850 ml 500 ml 100 ml 500 ml Output Total 950 ml 800 ml 5 ml 300 ml Balance -36 ml 50 ml 495 ml -200 ml 500 ml Intake Oral 240 ml IV Total 674 ml 850 ml 100 ml 500 ml Other 500 ml Output Urine Total 950 ml 800 ml 300 ml Estimated Blood Loss 5 ml # Bowel Movements 0 0 examination of the left hand and wrist: dressing and packing in place mild swelling of the dorsal aspect of the hand extension of the fingers painful intact sensation distally minimal drainage wbc: normalized Result Diagram: 10/05/17 0550 10/05/17 0550 Assessment and Plan Assessment and Plan 37 year old male s/p I and D, extensor tenosynovectomy left hand and wrist POD 1 plan: packing pulled 2cms dry dressing applied keep the part elevated to IV pole finger range of motion exercises hand surgery will follow. Jakob Watson MD Oct 05, 2017 17:49
[2017-10-05] MEDS ORDERED: oxyCODONE/ACETAMINOPHEN 5 MG/325 MG TAB PO PRN (18:30)
[2017-10-05] MEDS: valACYclovir HCL 500 MG TAB PO SCH (23:01)
[2017-10-06] VITALS (9 sets, daily range): BP systolic 134–217; BP diastolic 82–98; PULSE 61–82; RESP 16–20; TEMP 97.4–99.3; O2SAT 92–98
[2017-10-06] MEDS: PIPERACIL-TAZO 3.375 GM PREMIX 50 ML IV SCH ×3 (03:00→15:55)
[2017-10-06] MEDS: ENOXAPARIN SODIUM 40 MG/0.4 ML SYRINGE SQ SCH (03:00)
[2017-10-06] MEDS: SODIUM CHLORIDE 0.9% FLUSH 10 ML FLUSH IV FLUSH PRN ×6 (03:01→19:42)
[2017-10-06] MEDS: MORPHINE SULFATE 4 MG/ML INJ IV PUSH PRN ×5 (03:02→22:45)
[2017-10-06] MEDS: VANCOMYCIN INJ 1,750 MG in SODIUM CHLORID 0.9% 500 ML INJ 500 ML IV SCH (03:07)
[2017-10-06] MEDS: valACYclovir HCL 500 MG TAB PO SCH ×2 (07:32→15:55)
[2017-10-06] MEDS: SODIUM CHLORIDE 0.9% FLUSH 10 ML FLUSH IV FLUSH SCH ×2 (09:00→21:00)
[2017-10-06] MEDS: NS + KCL 20 MEQ INJ 1,000 ML IV SCH (09:33)
[2017-10-06] MEDS: THIAMINE HCL 100 MG TAB PO SCH (09:34)
[2017-10-06] MEDS: FOLIC ACID 1 MG TAB PO SCH (09:34)
[2017-10-06] MEDS: MULTIVITAMINS/MINERALS THERAPEUTIC TAB PO SCH (09:34)
[2017-10-06] MEDS: oxyCODONE/ACETAMINOPHEN 7.5 MG/325 MG TAB PO PRN ×3 (09:46→20:50)
--- NOTE | 2017-10-06 10:23 | HHI.PR ---
Subjective Remarks Follow up abscess/cellulitis/tenosynovitis. Patient reporting significant pain in his left hand/arm. He was not given oral pain meds overnight. BP has been elevated, likely due to pain. Objective Vitals Vital Signs Date Time Temp Pulse Resp B/P (MAP) Pulse Ox O2 Delivery O2 Flow Rate FiO2 10/06/17 08:21 98.3 62 20 209/94 (132) 92 10/06/17 03:12 98.5 78 17 193/90 (124) 96 10/06/17 03:07 18 10/05/17 23:09 98.2 91 17 189/86 (120) 96 10/05/17 20:48 99.1 96 17 192/86 (121) 96 10/05/17 19:57 95 10/05/17 18:14 186/91 (122) 10/05/17 18:08 99.0 200/96 (130) 10/05/17 15:51 97.7 77 18 201/89 (126) 99 10/05/17 12:15 84 10/05/17 12:00 98.1 81 18 171/79 (109) 96 I/O 10/05/17 10/05/17 10/05/17 10/06/17 10/06/17 10/06/17 07:00 15:00 23:00 07:00 15:00 23:00 Intake Total 500 ml 100 ml 550 ml 650 ml Output Total 5 ml 300 ml 750 ml Balance 495 ml -200 ml -200 ml 650 ml IV Total 100 ml 550 ml 650 ml Other 500 ml Output Urine Total 300 ml 750 ml Estimated Blood Loss 5 ml Result Diagram: 10/05/17 0550 10/05/17 0550 Imaging Last Impressions Upper Extremity Ultrasound 10/04/17 0000 Signed Impressions: Service Date/Time: Wednesday, October 04, 2017 17:37 - CONCLUSION: Soft tissue swelling with hyperemic changes but no evidence of abscess. Maurice Rodríguez MD Head CT [id number]/03/[id number] Signed Impressions: Service Date/Time: Tuesday, October 03, 2017 22:51 - CONCLUSION: 1. Negative noncontrast CT brain. Antoni Toussaint MD Chest X-Ray 10/03/172133 Signed Impressions: Service Date/Time: Tuesday, October 03, 2017 22:04 - CONCLUSION: No acute disease. Andi Rick MD Objective Remarks General: No acute distress. Appears uncomfortable. Heart: Regular rate and rhythm. No murmur. Lungs: Clear to auscultation bilaterally. No wheezes, rales, or rhonchi. Breathing is nonlabored. Abdomen: Soft, nontender, nondistended. Extremities: No lower extremity edema. Left hand heavily bandaged. Fingers of the left hand are edematous. Psych: Alert and oriented. Procedures None Urinary Catheter: No Vascular Central Line Catheter: No A/P Assessment and Plan 1. Sepsis secondary to cellulitis/abscess/extensor tenosynovitis of the left upper extremity: Patient presented with tachycardia, leukocytosis. Concern for endocarditis given history of IV drug abuse. Echocardiogram shows normal left ventricular systolic function, moderate pulmonary hypertension, trace tricuspid valve regurgitation, mild mitral valve regurgitation. Blood cultures are negative so far. Appreciate hand surgery recommendations. Status post incision and drainage of left hand abscess, extensor tenosynovectomy of the left hand and wrist. Appreciate infectious disease recommendations. Continue IV antibiotics. Continue pain control. 2. Hepatitis C: Patient has elevated LFTs. He has history of hep C, but has not been undergoing treatment. Monitor labs. 3. IV drug abuse, alcohol abuse: Patient has been counseled. Continue thiamine, folate, multivitamin. CIWA protocol. 4. Hyponatremia: Improved. 5. DVT prophylaxis: SCDs. 6. Hypertension: BP elevated, likely due to pain. Vasotec as needed. Pain control. Pawel Julian MD Oct 06, 2017 10:23
[2017-10-06] MEDS: ENALAPRILAT 1.25 MG/ML VIAL IV PUSH PRN ×3 (10:52→19:42)
[2017-10-06] MEDS ORDERED: PHARMACY ORDERED LAB ONE (11:45)
[2017-10-06] MEDS: VANCOMYCIN INJ 2,000 MG in SODIUM CHLORID 0.9% 500 ML INJ 500 ML IV SCH (17:56)
[2017-10-06] MEDS: LORazepam 2 MG/ML VIAL IV PUSH PRN (21:21)
[2017-10-07] VITALS: BP 152/79; PULSE 82; RESP 18; TEMP 97.7; O2SAT 94
[2017-10-07] MEDS: PIPERACIL-TAZO 3.375 GM PREMIX 50 ML IV SCH ×2 (00:30→04:05)
[2017-10-07] MEDS: valACYclovir HCL 500 MG TAB PO SCH ×4 (00:30→20:34)
[2017-10-07] MEDS: ENOXAPARIN SODIUM 40 MG/0.4 ML SYRINGE SQ SCH (01:00)
[2017-10-07] MEDS: oxyCODONE/ACETAMINOPHEN 7.5 MG/325 MG TAB PO PRN ×4 (01:00→20:34)
[2017-10-07] MEDS: MORPHINE SULFATE 4 MG/ML INJ IV PUSH PRN ×3 (03:25→13:10)
[2017-10-07] MEDS: LORazepam 2 MG/ML VIAL IV PUSH PRN (03:37)
[2017-10-07 04:00] VITALS: BP 190/94; PULSE 87; RESP 18; TEMP 99.1; O2SAT 92
[2017-10-07] MEDS: NS + KCL 20 MEQ INJ 1,000 ML IV SCH ×2 (04:06→09:09)
[2017-10-07] MEDS: ENALAPRILAT 1.25 MG/ML VIAL IV PUSH PRN (04:13)
[2017-10-07] MEDS: VANCOMYCIN INJ 2,000 MG in SODIUM CHLORID 0.9% 500 ML INJ 500 ML IV SCH ×2 (06:27→17:19)
[2017-10-07 08:00] VITALS: BP 160/88; PULSE 91; RESP 17; TEMP 98; O2SAT 93
[2017-10-07 08:23] LABS: AUTOMATED NEUTROPHIL # 4.7 TH/MM3 (1.8-7.7); BASOPHIL # 0.1 TH/MM3 (0-0.2); BASOPHIL % 0.6 % (0.0-2.0); EOSINOPHIL # 0.4 TH/MM3 (0-0.4); EOSINOPHIL % 4.9 % (0.0-4.0); HEMATOCRIT 35.2 % (39.0-51.0); HEMO FLAGS DIFF FINAL; LYMPH % 24.3 % (9.0-44.0); LYMPHOCYTE # 2.2 TH/MM3 (1.0-4.8); MEAN CELL VOLUME 86.3 FL (80.0-100.0); MEAN CORPUSCULAR HEMOGLOBIN 30.1 PG (27.0-34.0); MEAN CORPUSCULAR HGB CONC 34.9 % (32.0-36.0); MONO % 17.4 % (0.0-8.0); NEUT % 52.8 % (16.0-70.0); PLATELET COUNT 184 TH/MM3 (150-450); RED BLOOD COUNT 4.08 MIL/MM3 (4.50-5.90); RED CELL DISTRIBUTION WIDTH 14.2 % (11.6-17.2); WHITE BLOOD COUNT 8.9 TH/MM3 (4.0-11.0)
[2017-10-07 08:54] LABS: BICARBONATE 30.9 MEQ/L (21.0-32.0)
[2017-10-07 08:56] LABS: POTASSIUM 2.9 MEQ/L (3.5-5.1)
[2017-10-07] MEDS: SODIUM CHLORIDE 0.9% FLUSH 10 ML FLUSH IV FLUSH SCH ×2 (09:00→20:34)
[2017-10-07] MEDS: THIAMINE HCL 100 MG TAB PO SCH (09:03)
[2017-10-07] MEDS: FOLIC ACID 1 MG TAB PO SCH (09:08)
[2017-10-07] MEDS: MULTIVITAMINS/MINERALS THERAPEUTIC TAB PO SCH (09:08)
[2017-10-07] MEDS ORDERED: POTASSIUM CHLORIDE 20 MEQ CONTROLLED RELEASE TAB PO ONE ×3 (10:15→16:00)
--- NOTE | 2017-10-07 10:44 | HHI.PR ---
Subjective Remarks Follow up abscess/cellulitis/tenosynovitis of left hand status post I and D, today confirmed MRSA positive on Wound but not BSI, negative blood culture in 3 days, complaint of pain. Potassium level 2.9 giving replacement. No nausea, vomit or diarrhea. Objective Vital Signs Date Time Temp Pulse Resp B/P (MAP) Pulse Ox O2 Delivery O2 Flow Rate FiO2 10/07/17 08:00 98.0 91 17 160/88 (112) 93 10/07/17 04:00 99.1 87 18 190/94 (126) 92 10/07/17 00:00 97.7 82 18 152/79 (103) 94 10/06/17 20:00 98.8 72 18 158/96 (116) 95 10/06/17 19:11 99.3 80 16 184/85 (118) 98 134/82 (99) 10/06/17 18:11 211/98 (135) 10/06/17 16:00 97.6 61 18 217/94 (135) 96 10/06/17 12:00 64 10/06/17 11:47 97.4 82 18 177/86 (116) 98 I/O 10/06/17 10/06/17 10/06/17 10/07/17 10/07/17 10/07/17 06:59 14:59 22:59 06:59 14:59 22:59 Intake Total 700 ml 50 ml 1140 ml Output Total 2000 ml 100 ml Balance 700 ml -1950 ml 1040 ml Intake Oral 240 ml IV Total 700 ml 50 ml 900 ml Output Urine Total 2000 ml 100 ml # Voids 1 10 # Bowel Movements 1 Result Diagram: 10/07/17 0739 10/07/17 0739 Imaging Last Impressions Upper Extremity Ultrasound 10/04/17 0000 Signed Impressions: Service Date/Time: Wednesday, October 04, 2017 17:37 - CONCLUSION: Soft tissue swelling with hyperemic changes but no evidence of abscess. Maurice Rodríguez MD Head CT 10/03/172133 Signed Impressions: Service Date/Time: Tuesday, October 03, 2017 22:51 - CONCLUSION: 1. Negative noncontrast CT brain. Antoni Toussaint MD Chest X-Ray 10/03/172133 Signed Impressions: Service Date/Time: Tuesday, October 03, 2017 22:04 - CONCLUSION: No acute disease. Andi Rick MD Procedures with diagnosis of Abscess of the left hand Extensor tenosynovitis left hand and wrist status post Incision and drainage left hand abscess, Extensor tenosynovectomy left hand and wrist by Doctor Shirley Robert 10/05/17 Other Results Laboratory Tests Test 10/03/17 21:40 10/03/17 23:25 10/05/17 05:50 10/06/17 12:36 Monocytes % 1 % Metamyelocytes 1 % Toxic Vacuolation PRESENT Dohle Bodies PRESENT Erythrocyte Sedimentation Rate 43 mm/hr Prothrombin Time 9.9 SEC Prothromb Time International Ratio 1.0 RATIO Activated Partial Thromboplast Time 36.9 SEC Lactic Acid Level 1.6 mmol/L Blood Urea Nitrogen 29 MG/DL 11 MG/DL Creatinine 1.26 MG/DL 0.86 MG/DL Random Glucose 79 MG/DL 163 MG/DL Total Protein 7.4 GM/DL 6.2 GM/DL Albumin 3.2 GM/DL 2.3 GM/DL Calcium Level 8.6 MG/DL 8.4 MG/DL Magnesium Level 2.0 MG/DL Alkaline Phosphatase 274 U/L 342 U/L Aspartate Amino Transf (AST/SGOT) 124 U/L 66 U/L Alanine Aminotransferase (ALT/SGPT) 495 U/L 266 U/L Total Bilirubin 1.5 MG/DL 1.0 MG/DL Sodium Level 128 MEQ/L 137 MEQ/L Potassium Level 3.8 MEQ/L 3.7 MEQ/L Chloride Level 92 MEQ/L 103 MEQ/L Carbon Dioxide Level 28.9 MEQ/L 28.8 MEQ/L Total Creatine Kinase 473 U/L Creatine Kinase MB 9.6 NG/ML Creatine Kinase MB % 2.0 % Troponin I LESS THAN 0.02 NG/ML C-Reactive Protein 20.00 MG/DL B-Type Natriuretic Peptide 8 PG/ML Lipase 75 U/L Salicylates Level LESS THAN 1.7 MG/DL Acetaminophen Level LESS THAN 2.0 MCG/ML Ethyl Alcohol Level LESS THAN 3 MG/DL Urine Color YELLOW Urine Turbidity CLEAR Urine pH 5.0 Urine Specific [place] 1.010 Urine Protein TRACE mg/dL Urine Glucose (UA) NEG mg/dL Urine Ketones NEG mg/dL Urine Occult Blood SMALL Urine Nitrite NEG Urine Bilirubin NEG Urine Urobilinogen 2.0 MG/DL Urine Leukocyte Esterase NEG Urine RBC 1 /hpf Urine WBC 3 /hpf Urine Amorphous Sediment RARE Urine Granular Casts 1 /lpf Urine Mucus FEW /lpf Microscopic Urinalysis Comment CULT NOT INDICATED Urine Opiates Screen NEG Urine Barbiturates Screen NEG Urine Amphetamines Screen POS Urine Benzodiazepines Screen NEG Urine Cocaine Screen POS Urine Cannabinoids Screen NEG Differential Total Cells Counted 100 Neutrophils % (Manual) 68 % Band Neutrophils % 20 % Lymphocytes % 10 % Neutrophils # (Manual) 7.8 TH/MM3 Plasma Cells 2 % Platelet Estimate LOW Platelet Morphology Comment NORMAL Vancomycin Level Trough 22.0 MCG/ML Test 10/07/17 07:39 White Blood Count 8.9 TH/MM3 Red Blood Count 4.08 MIL/MM3 Hemoglobin 12.3 GM/DL Hematocrit 35.2 % Mean Corpuscular Volume 86.3 FL Mean Corpuscular Hemoglobin 30.1 PG Mean Corpuscular Hemoglobin Concent 34.9 % Red Cell Distribution Width 14.2 % Platelet Count 184 TH/MM3 Mean Platelet Volume 8.9 FL Neutrophils (%) (Auto) 52.8 % Lymphocytes (%) (Auto) 24.3 % Monocytes (%) (Auto) 17.4 % Eosinophils (%) (Auto) 4.9 % Basophils (%) (Auto) 0.6 % Neutrophils # (Auto) 4.7 TH/MM3 Lymphocytes # (Auto) 2.2 TH/MM3 Monocytes # (Auto) 1.6 TH/MM3 Eosinophils # (Auto) 0.4 TH/MM3 Basophils # (Auto) 0.1 TH/MM3 CBC Comment DIFF FINAL Differential Comment Blood Urea Nitrogen 6 MG/DL Creatinine 0.76 MG/DL Random Glucose 104 MG/DL Calcium Level 8.2 MG/DL Sodium Level 139 MEQ/L Potassium Level 2.9 MEQ/L Chloride Level 101 MEQ/L Carbon Dioxide Level 30.9 MEQ/L Anion Gap 7 MEQ/L Estimat Glomerular Filtration Rate 117 ML/MIN Objective Remarks General: No acute distress. Appears uncomfortable. Heart: Regular rate and rhythm. No murmur. Lungs: Clear to auscultation bilaterally. No wheezes, rales, or rhonchi. Breathing is nonlabored. Abdomen: Soft, nontender, nondistended. Extremities: No lower extremity edema. Left hand dressed. Psych: Alert and oriented. Medications and IVs Current Medications Medications (Trade) Dose Ordered Sig/Isaias Route Start Time Stop Time Status Last Admin Pharmacy Profile Note 0 ml @ 0 mls/hr UNSCH OTHER 10/04/17 01:00 Piperacillin Sod/ Tazobactam Sod 50 ml @ 100 mls/hr Q6H IV 10/04/17 03:45 10/07/17 04:05 (NS Flush) 2 ml UNSCH PRN IV FLUSH 10/04/17 01:15 10/06/17 19:42 (NS Flush) 2 ml BID IV FLUSH 10/04/17 09:00 10/05/17 22:57 (Tylenol) 650 mg Q4H PRN PO 10/04/17 01:15 10/04/17 15:52 (Zofran Inj) 4 mg Q6H PRN IVP 10/04/17 01:15 (Lovenox Inj) 40 mg Q24H SQ 10/04/17 01:15 10/07/17 01:00 (Narcan Inj) 0.4 mg UNSCH PRN IV PUSH 10/04/17 01:15 (Folate) 1 mg DAILY PO 10/04/17 09:00 10/09/17 08:59 10/07/17 09:08 (Vitamin B1) 100 mg DAILY PO 10/04/17 09:00 10/07/17 09:03 (Theragran M Tab) 1 tab DAILY PO 10/04/17 09:00 10/09/17 08:59 10/07/17 09:08 (Romazicon Inj) 0.2 mg Q1M PRN IV PUSH 10/04/17 01:45 (Ativan) 1 mg Q4H PRN PO 10/04/17 01:45 (Ativan Inj) 1 mg Q4H PRN IV PUSH 10/04/17 01:45 (Ativan) 2 mg Q2H PRN PO 10/04/17 01:45 (Ativan Inj) 2 mg Q2H PRN IV PUSH 10/04/17 01:45 (Ativan Inj) 2 mg Q1H PRN IV PUSH 10/04/17 01:45 10/07/17 03:37 (Ativan Inj) 2 mg Q15M PRN IV PUSH 10/04/17 01:45 Potassium Chloride/Sodium Chloride 1,000 ml @ 75 mls/hr [id number] IV 10/04/17 14:15 10/07/17 09:09 (Morphine Inj) 2 mg Q4HR PRN IV PUSH 10/05/17 18:45 10/07/17 09:08 (Valtrex) 500 mg Q8HR PO 10/05/17 22:00 10/07/17 06:27 (Percocet 7.5-325 Mg) 1 tab Q4H PRN PO 10/05/17 18:30 10/07/17 01:00 (Percocet 5-325 Mg) 1 tab Q4H PRN PO 10/05/17 18:30 (Vasotec Inj) 1.25 mg Q6H PRN IV PUSH 10/06/17 09:45 10/07/17 04:13 Vancomycin HCl 2000 mg/Sodium Chloride 520 ml @ 250 mls/hr Q12H IV 10/06/17 18:00 10/07/17 06:27 Miscellaneous Information SPECIFIC LAB TO BE DRAWN:VANCOMYCIN TROUGH DATE TO... ONCE ONCE .XX 10/08/17 05:45 10/08/17 05:46 (KCl) 20 meq ONCE ONCE PO 10/07/17 16:00 10/07/17 16:01 (KCl) 40 meq ONCE ONCE PO 10/07/17 13:00 10/07/17 13:01 A/P Assessment and Plan 1. Sepsis secondary to cellulitis/abscess/extensor tenosynovitis of the left upper extremity: with diagnosis of Abscess of the left hand Extensor tenosynovitis left hand and wrist status post Incision and drainage left hand abscess, Extensor tenosynovectomy left hand and wrist by Doctor Shirley Robert 10/05/17, confirmed MRSA infection but no BSI, blood culture Negative continue present Vancomycin. and hold on Zosyn awaiting for final Sensitivity. 2. Hepatitis C: Patient has elevated LFTs. He has history of hep C, but has not been undergoing treatment. Monitor labs. 3. IV drug abuse, alcohol abuse: Patient has been counseled. Continue thiamine, folate, multivitamin. CIWA protocol. 4. Hypertension related to pain continue Vasotec PRN. DVT prophylaxis: SCDs. Discharge Planning Once cleared by hand neurosurgery spine physician. Wilner Saldana MD Oct 07, 2017 10:44
[2017-10-07] MEDS: SODIUM CHLOR 0.9% 1000 ML INJ 1,000 ML IV SCH ×2 (11:20→21:00)
[2017-10-07 12:00] VITALS: BP 160/88; PULSE 86; RESP 16; TEMP 98.9; O2SAT 93
[2017-10-07 16:00] VITALS: BP 147/97; PULSE 86; RESP 18; TEMP 98.9; O2SAT 94
--- NOTE | 2017-10-07 16:58 | HHI.PR ---
Subjective Remarks complains of pain, feeling better no fever denies any numbness Objective Vital Signs Date Time Temp Pulse Resp B/P (MAP) Pulse Ox O2 Delivery O2 Flow Rate FiO2 10/07/17 16:00 98.9 86 18 147/97 (114) 94 10/07/17 12:00 98.9 86 16 160/88 (112) 93 10/07/17 08:00 98.0 91 17 160/88 (112) 93 10/07/17 04:00 99.1 87 18 190/94 (126) 92 10/07/17 00:00 97.7 82 18 152/79 (103) 94 10/06/17 20:00 98.8 72 18 158/96 (116) 95 10/06/17 19:11 99.3 80 16 184/85 (118) 98 134/82 (99) 10/06/17 18:11 211/98 (135) I/O 10/06/17 10/06/17 10/06/17 10/07/17 10/07/17 10/07/17 07:00 15:00 23:00 07:00 15:00 23:00 Intake Total 700 ml 50 ml 1140 ml 520 ml Output Total 2000 ml 100 ml Balance 700 ml -1950 ml 1040 ml 520 ml Intake Oral 240 ml IV Total 700 ml 50 ml 900 ml 520 ml Output Urine Total 2000 ml 100 ml # Voids 1 10 # Bowel Movements 1 examination of the left hand and wrist: dressing and packing in place surrounding edema noted no erythema able to make a better fist wrist range of motion painful cultures; MRSA Result Diagram: 10/07/17 0739 10/07/17 0739 Procedures with diagnosis of Abscess of the left hand Extensor tenosynovitis left hand and wrist status post Incision and drainage left hand abscess, Extensor tenosynovectomy left hand and wrist by Doctor Shirley Robert 10/05/17 Assessment and Plan Assessment and Plan 37 year old male s/p I and D, extensor tenosynovectomy left hand and wrist POD 2 plan: packing removed dry dressing applied keep the part elevated to IV pole continue with IV vanco finger range of motion exercises hand surgery will follow. Jakob Watson MD Oct 07, 2017 16:58
[2017-10-07] MEDS: MORPHINE SULFATE 2 MG/ML INJ IV PUSH PRN ×2 (17:19→21:39)
[2017-10-07 20:00] VITALS: BP 141/87; PULSE 91; RESP 22; TEMP 100.8; O2SAT 97
[2017-10-08] VITALS (9 sets, daily range): BP systolic 133–160; BP diastolic 75–95; PULSE 79–96; RESP 19–22; TEMP 97.5–98.5; O2SAT 94–96
[2017-10-08] MEDS: oxyCODONE/ACETAMINOPHEN 7.5 MG/325 MG TAB PO PRN ×6 (00:44→21:37)
[2017-10-08] MEDS: ENOXAPARIN SODIUM 40 MG/0.4 ML SYRINGE SQ SCH (00:44)
[2017-10-08] MEDS: SODIUM CHLOR 0.9% 1000 ML INJ 1,000 ML IV SCH (00:52)
[2017-10-08] MEDS: MORPHINE SULFATE 2 MG/ML INJ IV PUSH PRN ×6 (01:46→22:14)
[2017-10-08] MEDS ORDERED: PHARMACY ORDERED LAB ONE (05:45)
[2017-10-08] MEDS: valACYclovir HCL 500 MG TAB PO SCH ×3 (05:55→21:37)
[2017-10-08] MEDS: VANCOMYCIN INJ 2,000 MG in SODIUM CHLORID 0.9% 500 ML INJ 500 ML IV SCH (05:57)
[2017-10-08] MEDS: SODIUM CHLORIDE 0.9% FLUSH 10 ML FLUSH IV FLUSH SCH ×2 (08:49→21:38)
[2017-10-08] MEDS: THIAMINE HCL 100 MG TAB PO SCH (08:49)
[2017-10-08] MEDS: FOLIC ACID 1 MG TAB PO SCH (08:49)
[2017-10-08] MEDS: MULTIVITAMINS/MINERALS THERAPEUTIC TAB PO SCH (11:35)
--- NOTE | 2017-10-08 12:28 | HHI.PR ---
Subjective Remarks Follow up abscess/cellulitis/tenosynovitis of left hand status post I and D, today confirmed MRSA positive on Wound but not BSI, negative blood culture in 3 days, complaint of pain. Potassium level 2.9 giving replacement. Seen in his bedroom discussed with nurse, awaiting final recommendations by Hand insurance billing specialist. No nausea, vomit or diarrhea, following Electrolytes today. Objective Vital Signs Date Time Temp Pulse Resp B/P (MAP) Pulse Ox O2 Delivery O2 Flow Rate FiO2 10/08/17 11:42 98.3 82 19 151/91 (111) 96 10/08/17 08:00 97.5 85 20 160/95 (116) 96 10/08/17 04:59 96 10/08/17 04:00 98.0 80 21 160/95 (116) 95 10/08/17 00:00 98.5 90 22 139/77 (97) 94 10/07/17 20:00 100.8 91 22 141/87 (105) 97 10/07/17 16:00 98.9 86 18 147/97 (114) 94 I/O 10/07/17 10/07/17 10/07/17 10/08/17 10/08/17 10/08/17 07:00 15:00 23:00 07:00 15:00 23:00 Intake Total 1140 ml 520 ml 1440 ml 240 ml Output Total 100 ml 2525 ml Balance 1040 ml 520 ml -1085 ml 240 ml Intake Oral 240 ml 1440 ml 240 ml IV Total 900 ml 520 ml Output Urine Total 100 ml 2525 ml # Voids 10 1 # Bowel Movements 0 Result Diagram: 10/07/17 0739 10/07/17 0739 Imaging Last Impressions Upper Extremity Ultrasound 10/04/17 0000 Signed Impressions: Service Date/Time: Wednesday, October 04, 2017 17:37 - CONCLUSION: Soft tissue swelling with hyperemic changes but no evidence of abscess. Maurice Rodríguez MD Head CT [id number]/03/[id number] Signed Impressions: Service Date/Time: Tuesday, October 03, 2017 22:51 - CONCLUSION: 1. Negative noncontrast CT brain. Antoni Toussaint MD Chest X-Ray 10/03/172133 Signed Impressions: Service Date/Time: Tuesday, October 03, 2017 22:04 - CONCLUSION: No acute disease. Andi Rick MD Procedures with diagnosis of Abscess of the left hand Extensor tenosynovitis left hand and wrist status post Incision and drainage left hand abscess, Extensor tenosynovectomy left hand and wrist by Doctor Shirley Robert 10/05/17 Other Results Laboratory Tests Test 10/03/17 21:40 10/03/17 23:25 10/05/17 05:50 10/07/17 07:39 Monocytes % 1 % Metamyelocytes 1 % Toxic Vacuolation PRESENT Dohle Bodies PRESENT Erythrocyte Sedimentation Rate 43 mm/hr Prothrombin Time 9.9 SEC Prothromb Time International Ratio 1.0 RATIO Activated Partial Thromboplast Time 36.9 SEC Lactic Acid Level 1.6 mmol/L Blood Urea Nitrogen 29 MG/DL 11 MG/DL 6 MG/DL Creatinine 1.26 MG/DL 0.86 MG/DL 0.76 MG/DL Random Glucose 79 MG/DL 163 MG/DL 104 MG/DL Total Protein 7.4 GM/DL 6.2 GM/DL Albumin 3.2 GM/DL 2.3 GM/DL Calcium Level 8.6 MG/DL 8.4 MG/DL 8.2 MG/DL Magnesium Level 2.0 MG/DL Alkaline Phosphatase 274 U/L 342 U/L Aspartate Amino Transf (AST/SGOT) 124 U/L 66 U/L Alanine Aminotransferase (ALT/SGPT) 495 U/L 266 U/L Total Bilirubin 1.5 MG/DL 1.0 MG/DL Sodium Level 128 MEQ/L 137 MEQ/L 139 MEQ/L Potassium Level 3.8 MEQ/L 3.7 MEQ/L 2.9 MEQ/L Chloride Level 92 MEQ/L 103 MEQ/L 101 MEQ/L Carbon Dioxide Level 28.9 MEQ/L 28.8 MEQ/L 30.9 MEQ/L Total Creatine Kinase 473 U/L Creatine Kinase MB 9.6 NG/ML Creatine Kinase MB % 2.0 % Troponin I LESS THAN 0.02 NG/ML C-Reactive Protein 20.00 MG/DL B-Type Natriuretic Peptide 8 PG/ML Lipase 75 U/L Salicylates Level LESS THAN 1.7 MG/DL Acetaminophen Level LESS THAN 2.0 MCG/ML Ethyl Alcohol Level LESS THAN 3 MG/DL Urine Color YELLOW Urine Turbidity CLEAR Urine pH 5.0 Urine Specific [place] 1.010 Urine Protein TRACE mg/dL Urine Glucose (UA) NEG mg/dL Urine Ketones NEG mg/dL Urine Occult Blood SMALL Urine Nitrite NEG Urine Bilirubin NEG Urine Urobilinogen 2.0 MG/DL Urine Leukocyte Esterase NEG Urine RBC 1 /hpf Urine WBC 3 /hpf Urine Amorphous Sediment RARE Urine Granular Casts 1 /lpf Urine Mucus FEW /lpf Microscopic Urinalysis Comment CULT NOT INDICATED Urine Opiates Screen NEG Urine Barbiturates Screen NEG Urine Amphetamines Screen POS Urine Benzodiazepines Screen NEG Urine Cocaine Screen POS Urine Cannabinoids Screen NEG Differential Total Cells Counted 100 Neutrophils % (Manual) 68 % Band Neutrophils % 20 % Lymphocytes % 10 % Neutrophils # (Manual) 7.8 TH/MM3 Plasma Cells 2 % Platelet Estimate LOW Platelet Morphology Comment NORMAL White Blood Count 8.9 TH/MM3 Red Blood Count 4.08 MIL/MM3 Hemoglobin 12.3 GM/DL Hematocrit 35.2 % Mean Corpuscular Volume 86.3 FL Mean Corpuscular Hemoglobin 30.1 PG Mean Corpuscular Hemoglobin Concent 34.9 % Red Cell Distribution Width 14.2 % Platelet Count 184 TH/MM3 Mean Platelet Volume 8.9 FL Neutrophils (%) (Auto) 52.8 % Lymphocytes (%) (Auto) 24.3 % Monocytes (%) (Auto) 17.4 % Eosinophils (%) (Auto) 4.9 % Basophils (%) (Auto) 0.6 % Neutrophils # (Auto) 4.7 TH/MM3 Lymphocytes # (Auto) 2.2 TH/MM3 Monocytes # (Auto) 1.6 TH/MM3 Eosinophils # (Auto) 0.4 TH/MM3 Basophils # (Auto) 0.1 TH/MM3 CBC Comment DIFF FINAL Differential Comment Anion Gap 7 MEQ/L Estimat Glomerular Filtration Rate 117 ML/MIN Test 10/08/17 05:45 Vancomycin Level Trough 12.2 MCG/ML Objective Remarks General: No acute distress. Appears uncomfortable. Heart: Regular rate and rhythm. No murmur. Lungs: Clear to auscultation bilaterally. No wheezes, rales, or rhonchi. Breathing is nonlabored. Abdomen: Soft, nontender, nondistended. Extremities: No lower extremity edema. Left hand dressed. Psych: Alert and oriented. Medications and IVs Current Medications Medications (Trade) Dose Ordered Sig/Isaias Route Start Time Stop Time Status Last Admin Pharmacy Profile Note 0 ml @ 0 mls/hr UNSCH OTHER 10/04/17 01:00 (NS Flush) 2 ml UNSCH PRN IV FLUSH 10/04/17 01:15 10/06/17 19:42 (NS Flush) 2 ml BID IV FLUSH 10/04/17 09:00 10/08/17 08:49 (Tylenol) 650 mg Q4H PRN PO 10/04/17 01:15 10/04/17 15:52 (Zofran Inj) 4 mg Q6H PRN IVP 10/04/17 01:15 (Lovenox Inj) 40 mg Q24H SQ 10/04/17 01:15 10/08/17 00:44 (Narcan Inj) 0.4 mg UNSCH PRN IV PUSH 10/04/17 01:15 (Folate) 1 mg DAILY PO 10/04/17 09:00 10/09/17 08:59 10/08/17 08:49 (Vitamin B1) 100 mg DAILY PO 10/04/17 09:00 10/08/17 08:49 (Theragran M Tab) 1 tab DAILY PO 10/04/17 09:00 10/09/17 08:59 10/08/17 11:35 (Romazicon Inj) 0.2 mg Q1M PRN IV PUSH 10/04/17 01:45 (Valtrex) 500 mg Q8HR PO 10/05/17 22:00 10/08/17 05:55 (Percocet 7.5-325 Mg) 1 tab Q4H PRN PO 10/05/17 18:30 10/08/17 08:49 (Percocet 5-325 Mg) 1 tab Q4H PRN PO 10/05/17 18:30 (Vasotec Inj) 1.25 mg Q6H PRN IV PUSH 10/06/17 09:45 10/07/17 04:13 Vancomycin HCl 2000 mg/Sodium Chloride 520 ml @ 250 mls/hr Q12H IV 10/06/17 18:00 10/08/17 05:57 Sodium Chloride 1,000 ml @ 100 mls/hr Q10H IV 10/07/17 11:00 10/08/17 00:52 (Morphine Inj) 2 mg Q4HR PRN IV PUSH 10/07/17 16:15 10/08/17 10:19 A/P Assessment and Plan 1. Sepsis secondary to cellulitis/abscess/extensor tenosynovitis of the left upper extremity: with diagnosis of Abscess of the left hand Extensor tenosynovitis left hand and wrist status post Incision and drainage left hand abscess, Extensor tenosynovectomy left hand and wrist by Doctor Shirley Robert 10/05/17, confirmed MRSA infection but no BSI, blood culture Negative continue present Vancomycin. sensitivity in chart, as per Hand oral surgery technician to continue antibiotics IV. 2. Hepatitis C: Patient has elevated LFTs. He has history of hep C, but has not been undergoing treatment. Monitor labs. 3. IV drug abuse, alcohol abuse: Patient has been counseled. Continue thiamine, folate, multivitamin. CIWA protocol. 4. Hypertension related to pain continue Vasotec PRN. DVT prophylaxis: SCDs. Discharge Planning Once cleared by hand oral surgery technician. Wilner Saldana MD Oct 08, 2017 12:28
--- NOTE | 2017-10-08 15:12 | PD.ORT.PN ---
Subjective Post Op Day #: 3 Pain Scale: says pain no better Subjective Remarks says pain no better, but does not appear to be in distress "hard to move fingers " Range of Motion full AROM of his left hand fingers and thumb Objective Vitals Vital Signs Date Time Temp Pulse Resp B/P (MAP) Pulse Ox O2 Delivery O2 Flow Rate FiO2 10/08/17 11:42 98.3 82 19 151/91 (111) 96 10/08/17 08:00 97.5 85 20 160/95 (116) 96 10/08/17 04:59 96 10/08/17 04:00 98.0 80 21 160/95 (116) 95 10/08/17 00:00 98.5 90 22 139/77 (97) 94 10/07/17 20:00 100.8 91 22 141/87 (105) 97 10/07/17 16:00 98.9 86 18 147/97 (114) 94 I/O 10/07/17 10/07/17 10/07/17 10/08/17 10/08/17 10/08/17 07:00 15:00 23:00 07:00 15:00 23:00 Intake Total 1140 ml 520 ml 1440 ml 240 ml Output Total 100 ml 2525 ml Balance 1040 ml 520 ml -1085 ml 240 ml Intake Oral 240 ml 1440 ml 240 ml IV Total 900 ml 520 ml Output Urine Total 100 ml 2525 ml # Voids 10 1 # Bowel Movements 0 Result Diagram: 10/07/17 0739 10/07/17 0739 Objective Remarks wound has minimal swelling and NO erythema. has a very small amount of serous drainage on the dressing and no drainage with motion of the fingers and no expressible drainage. small open area at proximal wound. Assessment & Plan Ortho Post Op Day #: 3 Problem List: (1) Extensor tenosynovitis of left wrist ICD Codes: M65.842 - Other synovitis and tenosynovitis, left hand Status: Acute Plan: Wants more pain meds, but appears to be in no distress at the present time continue IV antibiotics--on Vancomycin and ID following wound cleansed with normal saline and rewrapped with sterile 4x4s, Ronald and Vijay wrap. Moving fingers and wrist pretty well. Dr. Solares will see in 2 days to recheck (2) Polysubstance abuse ICD Codes: F19.10 - Other psychoactive substance abuse, uncomplicated Status: Chronic Plan: see above--referral to [facility]?? Flory Pinzon MD Oct 08, 2017 15:12
[2017-10-08 15:51] LABS: MAGNESIUM 1.7 MG/DL (1.5-2.5); POTASSIUM 4.1 MEQ/L (3.5-5.1)
--- NOTE | 2017-10-08 15:58 | HHI.IDPN ---
Subjective Subjective Remarks pt is doing ok afebrile Antibiotics vancomycin Allergies: Coded Allergies: No Known Allergies (Verified Allergy, Unknown, 10/03/17) Objective . Vital Signs Date Time Temp Pulse Resp B/P (MAP) Pulse Ox O2 Delivery O2 Flow Rate FiO2 10/08/17 11:42 98.3 82 19 151/91 (111) 96 10/08/17 08:00 97.5 85 20 160/95 (116) 96 10/08/17 04:59 96 10/08/17 04:00 98.0 80 21 160/95 (116) 95 10/08/17 00:00 98.5 90 22 139/77 (97) 94 10/07/17 20:00 100.8 91 22 141/87 (105) 97 10/07/17 16:00 98.9 86 18 147/97 (114) 94 . Laboratory Tests Test 10/07/17 07:39 White Blood Count 8.9 TH/MM3 Red Blood Count 4.08 MIL/MM3 Hemoglobin 12.3 GM/DL Hematocrit 35.2 % Mean Corpuscular Volume 86.3 FL Mean Corpuscular Hemoglobin 30.1 PG Mean Corpuscular Hemoglobin Concent 34.9 % Red Cell Distribution Width 14.2 % Platelet Count 184 TH/MM3 Mean Platelet Volume 8.9 FL Neutrophils (%) (Auto) 52.8 % Lymphocytes (%) (Auto) 24.3 % Monocytes (%) (Auto) 17.4 % Eosinophils (%) (Auto) 4.9 % Basophils (%) (Auto) 0.6 % Neutrophils # (Auto) 4.7 TH/MM3 Lymphocytes # (Auto) 2.2 TH/MM3 Monocytes # (Auto) 1.6 TH/MM3 Eosinophils # (Auto) 0.4 TH/MM3 Basophils # (Auto) 0.1 TH/MM3 CBC Comment DIFF FINAL Differential Comment Laboratory Tests Test 10/07/17 07:39 10/08/17 14:30 Blood Urea Nitrogen 6 MG/DL Creatinine 0.76 MG/DL Random Glucose 104 MG/DL Calcium Level 8.2 MG/DL Sodium Level 139 MEQ/L Potassium Level 2.9 MEQ/L 4.1 MEQ/L Chloride Level 101 MEQ/L Carbon Dioxide Level 30.9 MEQ/L Anion Gap 7 MEQ/L Estimat Glomerular Filtration Rate 117 ML/MIN Phosphorus Level 3.4 MG/DL Magnesium Level 1.7 MG/DL Physical Exam CONSTITUTIONAL/GENERAL: This is an adequately nourished patient, in no apparent distress. TUBES/LINES/DRAINS: SKIN: No jaundice, rashes, or lesions. Skin temperature appropriate. Not diaphoretic. MUSCULOSKELETAL: L hand with intact dressing in place Assessment & Plan Remarks IVDU Abscess LUE, tenosynovitis, MRSA when ready to dc change abx to clindamycin 300 mg PO q 6 hrs to complete 14 days Danita Campoverde MD Oct 08, 2017 15:58
[2017-10-08] MEDS: VANCOMYCIN INJ 2,250 MG in SODIUM CHLORID 0.9% 500 ML INJ 500 ML IV SCH (18:00)
[2017-10-09] VITALS (9 sets, daily range): BP systolic 128–154; BP diastolic 64–87; PULSE 67–86; RESP 16–21; TEMP 97.1–98.5; O2SAT 96–97
[2017-10-09] MEDS: oxyCODONE/ACETAMINOPHEN 7.5 MG/325 MG TAB PO PRN ×5 (02:48→20:25)
[2017-10-09] MEDS: ENOXAPARIN SODIUM 40 MG/0.4 ML SYRINGE SQ SCH (02:49)
[2017-10-09] MEDS: SODIUM CHLOR 0.9% 1000 ML INJ 1,000 ML IV SCH ×3 (02:49→20:25)
[2017-10-09] MEDS: MORPHINE SULFATE 2 MG/ML INJ IV PUSH PRN ×5 (03:54→22:17)
[2017-10-09] MEDS: valACYclovir HCL 500 MG TAB PO SCH ×3 (05:17→20:24)
[2017-10-09] MEDS: VANCOMYCIN INJ 2,250 MG in SODIUM CHLORID 0.9% 500 ML INJ 500 ML IV SCH (05:17)
[2017-10-09] MEDS: THIAMINE HCL 100 MG TAB PO SCH (08:26)
[2017-10-09] MEDS: SODIUM CHLORIDE 0.9% FLUSH 10 ML FLUSH IV FLUSH SCH ×2 (08:27→20:25)
--- NOTE | 2017-10-09 11:54 | HHI.PR ---
Subjective Remarks Follow up abscess/cellulitis/tenosynovitis of left hand status post I and D, today confirmed MRSA positive on Wound but not BSI, negative blood culture in 3 days, complaint of pain. Potassium level 2.9 giving replacement. Stable in his bedroom no nausea, vomit or diarrhea, awaiting final recommendations by hand web analytics specialist. Objective Vital Signs Date Time Temp Pulse Resp B/P (MAP) Pulse Ox O2 Delivery O2 Flow Rate FiO2 10/09/17 08:00 97.1 86 18 154/87 (109) 97 10/09/17 04:00 98.5 78 21 131/76 (94) 96 10/09/17 03:34 74 10/09/17 00:00 97.9 81 21 137/83 (101) 96 10/08/17 23:18 79 10/08/17 20:00 98.0 84 21 133/75 (94) 96 10/08/17 19:27 90 10/08/17 15:54 98.4 83 19 146/78 (100) 94 I/O 10/08/17 10/08/17 10/08/17 10/09/17 10/09/17 10/09/17 06:59 14:59 22:59 06:59 14:59 22:59 Intake Total 240 ml 720 ml 400 ml Output Total 1771 ml 375 ml Balance 240 ml -1051 ml 25 ml Intake Oral 240 ml 720 ml 400 ml Output Urine Total 1770 ml 375 ml Stool Total 1 ml # Voids 1 Result Diagram: 10/07/17 0739 10/08/17 1430 Imaging Last Impressions Upper Extremity Ultrasound 10/04/17 0000 Signed Impressions: Service Date/Time: Wednesday, October 04, 2017 17:37 - CONCLUSION: Soft tissue swelling with hyperemic changes but no evidence of abscess. Maurice Rodríguez MD Head CT 10/03/172133 Signed Impressions: Service Date/Time: Tuesday, October 03, 2017 22:51 - CONCLUSION: 1. Negative noncontrast CT brain. Antoin Toussaint MD Chest X-Ray 10/03/172133 Signed Impressions: Service Date/Time: Tuesday, October 03, 2017 22:04 - CONCLUSION: No acute disease. Andi Rick MD Procedures with diagnosis of Abscess of the left hand Extensor tenosynovitis left hand and wrist status post Incision and drainage left hand abscess, Extensor tenosynovectomy left hand and wrist by Doctor Shirley Robert 10/05/17 Other Results Laboratory Tests Test 10/03/17 21:40 10/03/17 23:25 10/05/17 05:50 10/07/17 07:39 Monocytes % 1 % Metamyelocytes 1 % Toxic Vacuolation PRESENT Dohle Bodies PRESENT Erythrocyte Sedimentation Rate 43 mm/hr Prothrombin Time 9.9 SEC Prothromb Time International Ratio 1.0 RATIO Activated Partial Thromboplast Time 36.9 SEC Lactic Acid Level 1.6 mmol/L Total Creatine Kinase 473 U/L Creatine Kinase MB 9.6 NG/ML Creatine Kinase MB % 2.0 % Troponin I LESS THAN 0.02 NG/ML C-Reactive Protein 20.00 MG/DL B-Type Natriuretic Peptide 8 PG/ML Lipase 75 U/L Salicylates Level LESS THAN 1.7 MG/DL Acetaminophen Level LESS THAN 2.0 MCG/ML Ethyl Alcohol Level LESS THAN 3 MG/DL Urine Color YELLOW Urine Turbidity CLEAR Urine pH 5.0 Urine Specific [place] 1.010 Urine Protein TRACE mg/dL Urine Glucose (UA) NEG mg/dL Urine Ketones NEG mg/dL Urine Occult Blood SMALL Urine Nitrite NEG Urine Bilirubin NEG Urine Urobilinogen 2.0 MG/DL Urine Leukocyte Esterase NEG Urine RBC 1 /hpf Urine WBC 3 /hpf Urine Amorphous Sediment RARE Urine Granular Casts 1 /lpf Urine Mucus FEW /lpf Microscopic Urinalysis Comment CULT NOT INDICATED Urine Opiates Screen NEG Urine Barbiturates Screen NEG Urine Amphetamines Screen POS Urine Benzodiazepines Screen NEG Urine Cocaine Screen POS Urine Cannabinoids Screen NEG Differential Total Cells Counted 100 Neutrophils % (Manual) 68 % Band Neutrophils % 20 % Lymphocytes % 10 % Neutrophils # (Manual) 7.8 TH/MM3 Plasma Cells 2 % Platelet Estimate LOW Platelet Morphology Comment NORMAL Blood Urea Nitrogen 11 MG/DL 6 MG/DL Creatinine 0.86 MG/DL 0.76 MG/DL Random Glucose 163 MG/DL 104 MG/DL Total Protein 6.2 GM/DL Albumin 2.3 GM/DL Calcium Level 8.4 MG/DL 8.2 MG/DL Alkaline Phosphatase 342 U/L Aspartate Amino Transf (AST/SGOT) 66 U/L Alanine Aminotransferase (ALT/SGPT) 266 U/L Total Bilirubin 1.0 MG/DL Sodium Level 137 MEQ/L 139 MEQ/L Potassium Level 3.7 MEQ/L 2.9 MEQ/L Chloride Level 103 MEQ/L 101 MEQ/L Carbon Dioxide Level 28.8 MEQ/L 30.9 MEQ/L White Blood Count 8.9 TH/MM3 Red Blood Count 4.08 MIL/MM3 Hemoglobin 12.3 GM/DL Hematocrit 35.2 % Mean Corpuscular Volume 86.3 FL Mean Corpuscular Hemoglobin 30.1 PG Mean Corpuscular Hemoglobin Concent 34.9 % Red Cell Distribution Width 14.2 % Platelet Count 184 TH/MM3 Mean Platelet Volume 8.9 FL Neutrophils (%) (Auto) 52.8 % Lymphocytes (%) (Auto) 24.3 % Monocytes (%) (Auto) 17.4 % Eosinophils (%) (Auto) 4.9 % Basophils (%) (Auto) 0.6 % Neutrophils # (Auto) 4.7 TH/MM3 Lymphocytes # (Auto) 2.2 TH/MM3 Monocytes # (Auto) 1.6 TH/MM3 Eosinophils # (Auto) 0.4 TH/MM3 Basophils # (Auto) 0.1 TH/MM3 CBC Comment DIFF FINAL Differential Comment Anion Gap 7 MEQ/L Estimat Glomerular Filtration Rate 117 ML/MIN Test 10/08/17 05:45 10/08/17 14:30 Vancomycin Level Trough 12.2 MCG/ML Potassium Level 4.1 MEQ/L Phosphorus Level 3.4 MG/DL Magnesium Level 1.7 MG/DL Objective Remarks General: No acute distress. Appears uncomfortable. Heart: Regular rate and rhythm. No murmur. Lungs: Clear to auscultation bilaterally. No wheezes, rales, or rhonchi. Breathing is nonlabored. Abdomen: Soft, nontender, nondistended. Extremities: No lower extremity edema. Left hand dressed. Psych: Alert and oriented. Medications and IVs Current Medications Medications (Trade) Dose Ordered Sig/Isaias Route Start Time Stop Time Status Last Admin Pharmacy Profile Note 0 ml @ 0 mls/hr UNSCH OTHER 10/04/17 01:00 (NS Flush) 2 ml UNSCH PRN IV FLUSH 10/04/17 01:15 10/06/17 19:42 (NS Flush) 2 ml BID IV FLUSH 10/04/17 09:00 10/09/17 08:27 (Tylenol) 650 mg Q4H PRN PO 10/04/17 01:15 10/04/17 15:52 (Zofran Inj) 4 mg Q6H PRN IVP 10/04/17 01:15 (Lovenox Inj) 40 mg Q24H SQ 10/04/17 01:15 10/09/17 02:49 (Narcan Inj) 0.4 mg UNSCH PRN IV PUSH 10/04/17 01:15 (Vitamin B1) 100 mg DAILY PO 10/04/17 09:00 10/09/17 08:26 (Romazicon Inj) 0.2 mg Q1M PRN IV PUSH 10/04/17 01:45 (Valtrex) 500 mg Q8HR PO 10/05/17 22:00 10/09/17 05:17 (Percocet 7.5-325 Mg) 1 tab Q4H PRN PO 10/05/17 18:30 10/09/17 07:19 (Percocet 5-325 Mg) 1 tab Q4H PRN PO 10/05/17 18:30 (Vasotec Inj) 1.25 mg Q6H PRN IV PUSH 10/06/17 09:45 10/07/17 04:13 Sodium Chloride 1,000 ml @ 100 mls/hr Q10H IV 10/07/17 11:00 10/08/17 00:52 (Morphine Inj) 2 mg Q4HR PRN IV PUSH 10/07/17 16:15 10/09/17 08:27 Vancomycin HCl 2250 mg/Sodium Chloride 522.5 ml @ 257.5 mls/ hr Q12H IV 10/08/17 18:00 10/09/17 05:17 Miscellaneous Information SPECIFIC LAB TO BE ... ONCE ONCE .XX 10/09/17 17:45 10/09/17 17:46 A/P Assessment and Plan 1. Sepsis secondary to cellulitis/abscess/extensor tenosynovitis of the left upper extremity: with diagnosis of Abscess of the left hand Extensor tenosynovitis left hand and wrist status post Incision and drainage left hand abscess, Extensor tenosynovectomy left hand and wrist by Doctor Shirley Robert 10/05/17, confirmed MRSA infection but no BSI, blood culture Negative continue present Vancomycin. sensitivity in chart, as per Hand histology specialist to continue antibiotics IV. 2. Hepatitis C: Patient has elevated LFTs. He has history of hep C, but has not been undergoing treatment. Monitor labs. 3. IV drug abuse, alcohol abuse: Patient has been counseled. Continue thiamine, folate, multivitamin. CIWA protocol. 4. Hypertension related to pain continue Vasotec PRN. DVT prophylaxis: SCDs. Discussed on Multidisciplinary round patient ready for discharge from medicine standpoint, awaiting final by hand web analytics specialist. Discharge Planning Once cleared by hand histology specialist. Wilner Saldana MD Oct 09, 2017 11:54
[2017-10-09] MEDS ORDERED: PHARMACY ORDERED LAB ONE (17:45)
[2017-10-09] MEDS: VANCOMYCIN 1,000 MG/NS 250 ML IV SCH ×2 (22:47)
[2017-10-10] VITALS: BP 121/71; PULSE 76; RESP 18; TEMP 98.2; O2SAT 97
[2017-10-10] MEDS: ENOXAPARIN SODIUM 40 MG/0.4 ML SYRINGE SQ SCH (03:31)
[2017-10-10] MEDS: oxyCODONE/ACETAMINOPHEN 7.5 MG/325 MG TAB PO PRN ×3 (03:31→11:58)
[2017-10-10] MEDS: valACYclovir HCL 500 MG TAB PO SCH ×2 (04:11→11:58)
[2017-10-10] MEDS: MORPHINE SULFATE 2 MG/ML INJ IV PUSH PRN ×2 (04:12→08:43)
[2017-10-10] MEDS: VANCOMYCIN 1,000 MG/NS 250 ML IV SCH ×4 (04:12→11:58)
[2017-10-10 04:31] VITALS: BP 132/79; PULSE 70
[2017-10-10] MEDS: THIAMINE HCL 100 MG TAB PO SCH (07:50)
[2017-10-10] MEDS: SODIUM CHLORIDE 0.9% FLUSH 10 ML FLUSH IV FLUSH SCH (07:51)
[2017-10-10] MEDS: SODIUM CHLOR 0.9% 1000 ML INJ 1,000 ML IV SCH (07:51)
[2017-10-10 08:00] VITALS: BP 134/94; PULSE 73; RESP 18; TEMP 96.9; O2SAT 98
[2017-10-10] MEDS ORDERED: PHARMACY ORDERED LAB ONE (11:45)
--- NOTE | 2017-10-10 11:46 | HHI.PR ---
Subjective Remarks NO NEW COMPLAINTS WANTS TO GO HOME LATER TODAY IF CLEARED BY DR Lakeisha BENITEZ RN AND PT AND FAMILY AND CM [facility] HOME TODAY ON PO ANTIBIOTICS AND PAIN MEDS ONCE CLEARED BY HAND SURGERY Objective Vitals Vital Signs Date Time Temp Pulse Resp B/P (MAP) Pulse Ox O2 Delivery O2 Flow Rate FiO2 10/10/17 08:00 96.9 73 18 134/94 (107) 98 10/10/17 04:31 70 132/79 (96) 10/10/17 00:00 98.2 76 18 121/71 (88) 97 10/09/17 21:48 98.1 74 16 128/64 (85) 96 10/09/17 20:00 70 10/09/17 16:00 97.6 76 19 132/71 (91) 97 10/09/17 14:29 67 10/09/17 11:50 97.4 67 19 137/86 (103) 97 I/O 10/09/17 10/09/17 10/09/17 10/10/17 10/10/17 10/10/17 07:00 15:00 23:00 07:00 15:00 23:00 Intake Total 400 ml 480 ml 250 ml 250 ml Output Total 375 ml 500 ml Balance 25 ml 480 ml -250 ml 250 ml Intake Oral 400 ml 480 ml IV Total 250 ml 250 ml Output Urine Total 375 ml 500 ml # Voids 6 # Bowel Movements 0 0 Result Diagram: 10/07/17 0739 10/08/17 1430 Other Results Laboratory Tests Test 10/08/17 05:45 10/08/17 14:30 10/09/17 18:52 10/10/17 11:22 Vancomycin Level Trough 12.2 MCG/ML 17.2 MCG/ML Potassium Level 4.1 MEQ/L Phosphorus Level 3.4 MG/DL Magnesium Level 1.7 MG/DL Imaging Last Impressions Upper Extremity Ultrasound 10/04/17 0000 Signed Impressions: Service Date/Time: Wednesday, October 04, 2017 17:37 - CONCLUSION: Soft tissue swelling with hyperemic changes but no evidence of abscess. Maurice Rodríguez MD Head CT 10/03/174 Signed Impressions: Service Date/Time: Tuesday, October 03, 2017 22:51 - CONCLUSION: 1. Negative noncontrast CT brain. Antoni Toussaint MD Chest X-Ray 10/03/172133 Signed Impressions: Service Date/Time: Tuesday, October 03, 2017 22:04 - CONCLUSION: No acute disease. Andi Rick MD Objective Remarks GENERAL: SKIN: Warm and dry. HEAD: Atraumatic. Normocephalic. EYES: Pupils equal and round. No scleral icterus. No injection or drainage. ENT: No nasal bleeding or discharge. Mucous membranes pink and moist. NECK: Trachea midline. No JVD. CARDIOVASCULAR: Regular rate and rhythm. RESPIRATORY: No accessory muscle use. Clear to auscultation. Breath sounds equal bilaterally. GASTROINTESTINAL: Abdomen soft, non-tender, nondistended. Hepatic and splenic margins not palpable. MUSCULOSKELETAL: Extremities without clubbing, cyanosis, or edema. No obvious deformities. NEUROLOGICAL: Awake and alert. No obvious cranial nerve deficits. Motor grossly within normal limits. Five out of 5 muscle strength in the arms and legs. Normal speech. PSYCHIATRIC: Appropriate mood and affect; insight and judgment normal. Procedures with diagnosis of Abscess of the left hand Extensor tenosynovitis left hand and wrist status post Incision and drainage left hand abscess, Extensor tenosynovectomy left hand and wrist by Doctor Shirley Robert 10/05/17 Medications and IVs Current Medications Sodium Chloride 1,000 ml @ 1,000 mls/hr Q1H ONCE IV Last administered on 10/03 21:45; Start 10/03/17 at 21:45; Stop 10/03/17 at 22:44; Status DC Piperacillin Sod/ Tazobactam Sod 50 ml @ 100 mls/hr ONCE ONCE IV Last administered on 10/03/17 21:45; Start 10/03/17 at 21:45; Stop 10/03/17 at 22 :14; Status DC Vancomycin HCl 1000 mg/Sodium Chloride 250 ml @ 250 mls/hr ONCE ONCE IV Last administered on 10/03/17 21:45; Start 10/03/17 at 21:45; Stop 10/03/17 at 22 :44; Status DC Sodium Chloride 1,000 ml @ 1,000 mls/hr Q1H ONCE IV Last administered on 10/03 22:52; Start 10/03/17 at 22:52; Stop 10/03/17 at 23:51; Status DC Sodium Chloride 1,000 ml @ 1,000 mls/hr Q1H ONCE IV Last administered on 10/03 22:52; Start 10/03/17 at 22:52; Stop 10/03/17 at 23:51; Status DC Sodium Chloride 400 ml @ 1,000 mls/hr Q24M ONCE IV Last administered on 22:52; Start 10/03/17 at 22:52; Stop 10/03/17 at 23:15; Status DC Morphine Sulfate (Morphine Inj) 5 mg ONCE ONCE IV PUSH Last administered on 23:45; Start 10/03/17 at 23:45; Stop 10/03/17 at 23:46; Status DC Ondansetron HCl (Zofran Inj) 4 mg ONCE ONCE IV PUSH Last administered on 10/03 23:45; Start 10/03/17 at 23:45; Stop 10/03/17 at 23:46; Status DC Morphine Sulfate (Morphine Inj) 4 mg Q3H PRN IV PUSH pain > 4 - 10 Last administered on 10/05/17 18:05; Start 10/04/17 at 01:00; Stop 10/05/17 at 18 :32; Status DC Pharmacy Profile Note 0 ml @ 0 mls/hr UNSCH OTHER ; Start 10/04/17 at 01:00 Piperacillin Sod/ Tazobactam Sod 50 ml @ 100 mls/hr Q6H IV Last administered on 10/07/17 04:05; Start 10/04/17 at 03:45; Stop 10/07/17 at 10:49; Status DC Sodium Chloride (NS Flush) 2 ml UNSCH PRN IV FLUSH FLUSH AFTER USING IV ACCESS Last administered on 10/06/17 19:42; Start 10/04/17 at 01:15 Sodium Chloride (NS Flush) 2 ml BID IV FLUSH Last administered on 10/09/17 20 :25; Start 10/04/17 at 09:00 Acetaminophen (Tylenol) 650 mg Q4H PRN PO TEMP > 100.4 Last administered on 15:52; Start 10/04/17 at 01:15 Ondansetron HCl (Zofran Inj) 4 mg Q6H PRN IVP NAUSEA OR VOMITING; Start at 01:15 Enoxaparin Sodium (Lovenox Inj) 40 mg Q24H SQ Last administered on 10/10/17 03:31; Start 10/04/17 at 01:15 Naloxone HCl (Narcan Inj) 0.4 mg UNSCH PRN IV PUSH SEE LABEL COMMENTS; Start 10/04/17 at 01:15 Folic Acid (Folate) 1 mg DAILY PO Last administered on 10/08/17 08:49; Start 10/04/17 at 09:00; Stop 10/09/17 at 08:59; Status DC Thiamine HCl (Vitamin B1) 100 mg DAILY PO Last administered on 10/10/17 07:50 ; Start 10/04/17 at 09:00 Multivitamins/ Minerals Therapeutic (Theragran M Tab) 1 tab DAILY PO Last administered on 10/08/17 11:35; Start 10/04/17 at 09:00; Stop 10/09/17 at 08 :59; Status DC Flumazenil (Romazicon Inj) 0.2 mg Q1M PRN IV PUSH SEE LABEL COMMENTS; Start at 01:45 Lorazepam (Ativan) 1 mg Q4H PRN PO CIWA 8 - 10; Start 10/04/17 at 01:45; Stop 10/07/17 at 10:51; Status DC Lorazepam (Ativan Inj) 1 mg Q4H PRN IV PUSH CIWA 8 - 10; Start 10/04/17 at 01: 45; Stop 10/07/17 at 10:51; Status DC Lorazepam (Ativan) 2 mg Q2H PRN PO CIWA 11-14; Start 10/04/17 at 01:45; Stop 10/07/17 at 10:51; Status DC Lorazepam (Ativan Inj) 2 mg Q2H PRN IV PUSH CIWA 11-14; Start 10/04/17 at 01: 45; Stop 10/07/17 at 10:51; Status DC Lorazepam (Ativan Inj) 2 mg Q1H PRN IV PUSH CIWA 15-20 Last administered on 03:37; Start 10/04/17 at 01:45; Stop 10/07/17 at 10:51; Status DC Lorazepam (Ativan Inj) 2 mg Q15M PRN IV PUSH CIWA > 20; Start 10/04/17 at 01: 45; Stop 10/07/17 at 10:51; Status DC Sodium Chloride 1,000 ml @ 75 mls/hr [id number] IV Last administered on 01:45; Start 10/04/17 at 01:45; Stop 10/04/17 at 14:05; Status DC Vancomycin HCl 1000 mg/Sodium Chloride 250 ml @ 250 mls/hr ONCE ONCE IV Last administered on 10/04/17 03:24; Start 10/04/17 at 02:30; Stop 10/04/17 at 03 :29; Status DC Pneumococcal Polyvalent Vaccine (Pneumovax-23 Inj) 25 mcg ONCE ONCE IM ; Start 10/05/17 at 10:00; Stop 10/05/17 at 10:01; Status DC Influenza Virus Vaccine (Flu (Quadrivalent) Vaccine Inj) 0.5 ml ONCE ONCE IM ; Start 10/05/17 at 10:00; Stop 10/05/17 at 10:01; Status DC Vancomycin HCl 1750 mg/Sodium Chloride 517.5 ml @ 250 mls/hr Q12H IV Last administered on 10/05/17 12:45; Start 10/04/17 at 11:00; Stop 10/05/17 at 12 :52; Status DC Miscellaneous Information SPECIFIC LAB TO BE DRAWN:VANCOMYCIN TROUGH DATE TO... ONCE ONCE .XX ; Start 10/05/17 at 10:45; Stop 10/05/17 at 10:46; Status DC Potassium Chloride/Sodium Chloride 1,000 ml @ 75 mls/hr [id number] IV Last administered on 10/07/17 09:09; Start 10/04/17 at 14:15; Stop 10/07/17 at 10 :48; Status DC Hydromorphone HCl (Dilaudid Pf Inj) 2 mg STK-MED ONCE .ROUTE ; Start 10/04/17 at 23:29; Stop 10/04/17 at 23:30; Status DC Vancomycin HCl (Vancomycin Inj) 2,000 mg STK-MED ONCE .ROUTE Last administered on 10/05/17 00:02; Start 10/04/17 at 23:39; Stop 10/04/17 at 23:40; Status DC Bacitracin (Baciguent Oint) 15 applic STK-MED ONCE .ROUTE ; Start 10/04/17 at 23:39; Stop 10/04/17 at 23:40; Status DC Neomycin/Polymyxin (Neosporin G.u. Irr) 2 ml STK-MED ONCE .ROUTE ; Start at 00:05; Stop 10/05/17 at 00:06; Status DC Hydromorphone HCl (*DILAUDID PF INJ PERIprocedural ONLY) 1 mg STK-MED ONCE .ROUTE Last administered on 10/05/17 01:03; Start 10/05/17 at 01:03; Stop 10/05/17 at 01:04; Status DC Miscellaneous Information ALL NURSING DEPARTME... UNSCH PRN .XX SEE LABEL COMMENTS; Start 10/05/17 at 00:46; Stop 10/06/17 at 00:45; Status DC Vancomycin HCl 1750 mg/Sodium Chloride 517.5 ml @ 250 mls/hr Q8H IV Last administered on 10/06/17 03:07; Start 10/05/17 at 20:00; Stop 10/06/17 at 14 :00; Status DC Miscellaneous Information SPECIFIC LAB TO BE DRAWN:VANCOMYCIN TROUGH DATE TO... ONCE ONCE .XX ; Start 10/06/17 at 11:45; Stop 10/06/17 at 11:46; Status DC Morphine Sulfate (Morphine Inj) 2 mg Q4HR PRN IV PUSH BREAKTHROUGH PAIN Last administered on 10/07/17 13:10; Start 10/05/17 at 18:45; Stop 10/07/17 at 16 :14; Status DC Valacyclovir HCl (Valtrex) 500 mg Q8HR PO Last administered on 10/10/17 04:11 ; Start 10/05/17 at 22:00 Oxycodone/ Acetaminophen (Percocet 7.5-325 Mg) 1 tab Q4H PRN PO Pain 6-10 Last administered on 10/10/17 07:50; Start 10/05/17 at 18:30 Oxycodone/ Acetaminophen (Percocet 5-325 Mg) 1 tab Q4H PRN PO Pain 3-5; Start 10/05/17 at 18:30 Enalaprilat (Vasotec Inj) 1.25 mg Q6H PRN IV PUSH SBP> OR = 180, DBP> OR = 100 Last administered on 10/07/17 04:13; Start 10/06/17 at 09:45 Vancomycin HCl 2000 mg/Sodium Chloride 520 ml @ 250 mls/hr Q12H IV Last administered on 10/08/17 05:57; Start 10/06/17 at 18:00; Stop 10/08/17 at 12 :37; Status DC Miscellaneous Information SPECIFIC LAB TO BE DRAWN:VANCOMYCIN TROUGH DATE TO... ONCE ONCE .XX Last administered on 10/08/17 05:45; Start 10/08/17 at 05:45 ; Stop 10/08/17 at 05:46; Status DC Potassium Chloride (KCl) 40 meq ONCE ONCE PO Last administered on 10/07/17 11:06; Start 10/07/17 at 10:15; Stop 10/07/17 at 10:24; Status DC Potassium Chloride (KCl) 20 meq ONCE ONCE PO Last administered on 10/07/17 17:19; Start 10/07/17 at 16:00; Stop 10/07/17 at 16:01; Status DC Potassium Chloride (KCl) 40 meq ONCE ONCE PO Last administered on 10/07/17 13:10; Start 10/07/17 at 13:00; Stop 10/07/17 at 13:01; Status DC Sodium Chloride 1,000 ml @ 100 mls/hr Q10H IV Last administered on 10/10/17 07:51; Start 10/07/17 at 11:00 Morphine Sulfate (Morphine Inj) 2 mg Q4HR PRN IV PUSH BREAKTHROUGH PAIN Last administered on 10/10/17 08:43; Start 10/07/17 at 16:15 Vancomycin HCl 2250 mg/Sodium Chloride 522.5 ml @ 257.5 mls/ hr Q12H IV Last administered on 10/09/17 05:17; Start 10/08/17 at 18:00; Stop 10/09/17 at 20 :53; Status DC Miscellaneous Information SPECIFIC LAB TO BE DARIANA... ONCE ONCE .XX ; Start at 17:45; Stop 10/09/17 at 17:46; Status DC Vancomycin HCl 1000 mg/Sodium Chloride 250 ml @ 250 mls/hr Q6H IV Last administered on 10/10/17 04:12; Start 10/10/17 at 00:00 Miscellaneous Information SPECIFIC LAB TO BE DRAWN:VA... ONCE ONCE .XX ; Start 10/10/17 at 11:45; Stop 10/10/17 at 11:46 A/P Assessment and Plan 1. Sepsis secondary to cellulitis/abscess/extensor tenosynovitis of the left upper extremity: with diagnosis of Abscess of the left hand Extensor tenosynovitis left hand and wrist status post Incision and drainage left hand abscess, Extensor tenosynovectomy left hand and wrist by Doctor Shirley Robert 10/05/17, confirmed MRSA infection but no BSI, blood culture Negative continue present Vancomycin. sensitivity in chart, as per Hand compensation specialist to continue antibiotics IV. 2. Hepatitis C: Patient has elevated LFTs. He has history of hep C, but has not been undergoing treatment. Monitor labs. 3. IV drug abuse, alcohol abuse: Patient has been counseled. Continue thiamine, folate, multivitamin. CIWA protocol. 4. Hypertension related to pain continue Vasotec PRN. DVT prophylaxis: SCDs. Discussed on Multidisciplinary round patient ready for discharge from medicine standpoint, awaiting final by hand erosion control specialist. Discharge Planning IF OK WITH HAND TODAY Nils Louis DO Oct 10, 2017 11:46
[2017-10-10 12:00] VITALS: BP 132/68; PULSE 69; RESP 18; TEMP 97.9; O2SAT 96
[2017-10-10] MEDS ORDERED: FOLI800T PO (12:28)
[2017-10-10] MEDS ORDERED: CLIN300C5 PO (12:28)
[2017-10-10] MEDS ORDERED: THIA100 PO (12:28)
[2017-10-10] MEDS ORDERED: OXYC1TAB35 PO (12:28)
[2017-10-10] MEDS ORDERED: MULTTAB67 PO (12:28)
[2017-10-10] MEDS ORDERED: VALT500T PO (12:28)
--- NOTE | 2017-10-10 12:34 | HHI.DS ---
Discharge Summary Admission Date Oct 03, 2017 at 23:44 Discharge Date: Oct 10, 2017 Admitting Diagnosis Cellulitis, Sepsis, r/o Endocarditis, h/o IVDU (1) Extensor tenosynovitis of left wrist ICD Code: M65.842 - Other synovitis and tenosynovitis, left hand Diagnosis: Principal Status: Acute (2) Polysubstance abuse ICD Code: F19.10 - Other psychoactive substance abuse, uncomplicated Diagnosis: Principal Status: Chronic (3) Abscess of left hand ICD Code: L02.512 - Cutaneous abscess of left hand Diagnosis: Principal (4) Abscess of left forearm ICD Code: L02.414 - Cutaneous abscess of left upper limb Diagnosis: Secondary (5) Cellulitis of upper extremity ICD Code: L03.119 - Cellulitis of unspecified part of limb Diagnosis: Principal Procedures with diagnosis of Abscess of the left hand Extensor tenosynovitis left hand and wrist status post Incision and drainage left hand abscess, Extensor tenosynovectomy left hand and wrist by Doctor Shirley Robert 10/05/17 Brief History - From Admission 37-year-old male with a past medical history significant for IV drug abuse and hepatitis C presents to the emergency department with severe left upper extremity arm pain that began this morning. The patient endorses subjective fever/chills and generalized malaise. The patient was discharged from the hospital on 08/30/17 where he was treated for bilateral upper extremity cellulitis with I&D of an abscess in the left forearm. Wound culture grew group A beta strep. The patient was transitioned to oral antibiotics and discharged. Patient has a leukocytosis 20.7. Afebrile but tachycardic to 118. Lactic acid 1.6. CBC/BMP: 10/07/17 0739 10/08/17 1430 Significant Findings Laboratory Tests Test 10/08/17 05:45 10/08/17 14:30 10/09/17 18:52 10/10/17 11:22 Vancomycin Level Trough 12.2 MCG/ML (5.0-10.0) 17.2 MCG/ML (5.0-10.0) 15.9 MCG/ML (5.0-10.0) Imaging Last Impressions Upper Extremity Ultrasound 10/04/17 0000 Signed Impressions: Service Date/Time: Wednesday, October 04, 2017 17:37 - CONCLUSION: Soft tissue swelling with hyperemic changes but no evidence of abscess. Maurice Rodríguez MD Head CT 10/03/172133 Signed Impressions: Service Date/Time: Tuesday, October 03, 2017 22:51 - CONCLUSION: 1. Negative noncontrast CT brain. Antoni Toussaint MD Chest X-Ray 10/03/172133 Signed Impressions: Service Date/Time: Tuesday, October 03, 2017 22:04 - CONCLUSION: No acute disease. Andi Rick MD PE at Discharge GENERAL: SKIN: Warm and dry. HEAD: Atraumatic. Normocephalic. EYES: Pupils equal and round. No scleral icterus. No injection or drainage. ENT: No nasal bleeding or discharge. Mucous membranes pink and moist. NECK: Trachea midline. No JVD. CARDIOVASCULAR: Regular rate and rhythm. RESPIRATORY: No accessory muscle use. Clear to auscultation. Breath sounds equal bilaterally. GASTROINTESTINAL: Abdomen soft, non-tender, nondistended. Hepatic and splenic margins not palpable. MUSCULOSKELETAL: Extremities without clubbing, cyanosis, or edema. No obvious deformities. NEUROLOGICAL: Awake and alert. No obvious cranial nerve deficits. Motor grossly within normal limits. Five out of 5 muscle strength in the arms and legs. Normal speech. PSYCHIATRIC: Appropriate mood and affect; insight and judgment normal. Hospital Course 37-year-old male with a past medical history significant for IV drug abuse and hepatitis C presents to the emergency department with severe left upper extremity arm pain that began this morning. The patient endorses subjective fever/chills and generalized malaise. The patient was discharged from the hospital on 08/30/17 where he was treated for bilateral upper extremity cellulitis with I&D of an abscess in the left forearm. Wound culture grew group A beta strep. The patient was transitioned to oral antibiotics and discharged. Patient has a leukocytosis 20.7. Afebrile but tachycardic to 118. Lactic acid 1.6. HAD SURGERY BY HAND SURGERY CAME BACK MRSA SENSITIVE TO CLINDA- CAN SWITCH TO PO AT WI DW RN AND PT AND ID DC TO HOME TODAY IF CLEARED BY HAND SURGERY Pt Condition on Discharge: Good Discharge Disposition: Disch w/ Home Health Serv Discharge Time: <= 30 minutes Discharge Instructions DIET: Follow Instructions for: As Tolerated, No Restrictions Speech Therapy-Diet Recommends: Regular Additional Diet Instructions: TOLERATED Activities you can perform: Regular-No Restrictions Follow up Referrals: Hand Surgery - 2-3 Days with Jakob Watson MD PCP Follow-up - 1 Week New Medications: Clindamycin (Clindamycin) 300 Mg Cap 300 MG PO Q6H for Infection for 10 Days, #40 CAP 0 Refills Folic Acid (Folic Acid) 0.8 Mg Tab 800 MCG PO DAILY for Nutritional Supplement for 30 Days, #30 TAB 0 Refills Multiple Vitamin (Multiple Vitamin) 1 Tab 1 TAB PO DAILY for Nutritional Supplement for 30 Days, #30 TAB 0 Refills Oxycodone HCl/Acetaminophen (Oxycodon-Acetaminophen 7.5-325) 7.5 Mg-325 Mg Tablet 1 TAB PO Q4H PRN for Pain 6-10, #30 TAB Thiamine HCl (Gnp Vitamin B-1) 100 Mg Tab 100 MG PO DAILY for Infection, #30 TAB Valacyclovir (Valtrex) 500 Mg Tab 500 MG PO Q8HR for Infection, #93 TAB Nils Louis DO Oct 10, 2017 12:34
[2017-10-11] MEDS ORDERED: PHARMACY ORDERED LAB ONE (05:45)
== END 2017-10-10 14:29 | disposition home health service (06) | DRG 854 ==
LOC: NEPE 20:41 → NEDA 23:44 → NEPGCP 10-04 02:48 → N07A 10-06 20:24
PROVIDERS: ADMIT Hospitalist; ATTEND Hospitalist
PROC: 0LB60ZZ Excision of Left Lower Arm and Wrist Tendon, Open Approach (ICD-10-PCS; principal; 2017-10-05)
PROC: 0J9H0ZZ Drainage of Left Lower Arm Subcutaneous Tissue and Fascia, Open Approach (ICD-10-PCS; 2017-10-05)
DX: A41.9 Sepsis, unspecified organism (principal); E87.1 Hypo-osmolality and hyponatremia; I27.20 Pulmonary hypertension, unspecified; L03.114 Cellulitis of left upper limb; L02.414 Cutaneous abscess of left upper limb; I10 Essential (primary) hypertension; F11.10 Opioid abuse, uncomplicated; F17.210 Nicotine dependence, cigarettes, uncomplicated; R00.0 Tachycardia, unspecified; F10.10 Alcohol abuse, uncomplicated; M65.132 Other infective (teno)synovitis, left wrist; B95.62 Methicillin resistant Staphylococcus aureus infection as the cause of diseases classified elsewhere; Z86.19 Personal history of other infectious and parasitic diseases
CPT/HCPCS: 70450; 71010; 76882; 76937; 80048; 80053; 80202; 80307; 81001; 82550; 82552; 83605; 83690; 83735; 83880; 84100; 84132; 84484; 85007; 85025; 85027; 85610; 85652; 85730; 86140; 86403; 87015; 87040; 87070; 87102; 87116; 87147; 87186; 87205; 87206; 93005; 93306; 93971; 96365; 96368; J1170; J1650; J2060; J2270; J2405; J2543; J3370; J3480; J7030; J7040; J7050

== ENCOUNTER 2018-03-26 22:45 | Emergency (ER) | payer SELFPAY ==
[~2018-03-26] VITALS: Ht 190.5 cm; Wt 97.7 kg
[~2018-03-26 22:45] MED LIST changes: -AMOX500T PO; +CLIN300C5 PO; +FOLI800T PO; -HYDR-3583 PO; +MULTTAB67 PO; +OXYC1TAB35 PO; +THIA100 PO; +VALT500T PO
[2018-03-26 22:52] VITALS: BP 122/74; PULSE 75; RESP 18; TEMP 98.2; O2SAT 97
[2018-03-26] MEDS ORDERED: ZOLO100T PO (22:58)
[2018-03-26] MEDS ORDERED: DOXE150C2 PO (22:58)
[2018-03-26] MEDS ORDERED: BUSP5TAB PO (22:58)
[2018-03-26] MEDS ORDERED: ATOM40 PO (22:58)
[2018-03-26] MEDS ORDERED: BACT800T5 PO (22:58)
[2018-03-26] MEDS ORDERED: CEPH-460 PO (22:58)
[2018-03-26] MEDS ORDERED: LIDOCAINE HCL 1% 20 ML VIAL INFIL ONE (23:00)
[2018-03-26] MEDS ORDERED: LIDOCAINE HCL 1% 10 ML VIAL INFIL ONE (23:15)
--- NOTE | 2018-03-26 23:36 | PD ---
Data Data Last Documented VS Vital Signs Date Time Temp Pulse Resp B/P (MAP) Pulse Ox O2 Delivery O2 Flow Rate FiO2 03/26/18 22:52 98.2 75 18 122/74 (90) 97 Orders Orders Lidocaine 1% Inj (Xylocaine 1% Inj) (03/26/18 23:15) MDM Medical Record Reviewed: Yes Supervised Visit with NASIR: No Narrative Course This patient has an abscess to the left forearm which I was asked to perform incision and drainage on, the patient verbally consents, see accompanying procedural note. Procedures Procedure Narrative INCISION AND DRAINAGE OF ABSCESS: The area was prepped and was sterilely draped. A subcutaneous wheal of 1% Xylocaine with a total number 5 mL was used to anesthetize the area. The area was properly anesthetized. A number [ 11scalpel was used to make a 1 -cm incision across the area of the abscess. Cultures were obtained. The abscess was drained an irrigated with normal saline. Alphonse Tong Mar 26, 2018 23:36
--- NOTE | 2018-03-26 23:53 | PD ---
HPI Chief Complaint: Skin Problem Time Seen by Provider: 22:59 Travel History International Travel<30 days: No Contact w/Intl Traveler<30days: No Traveled to known affect area: No History of Present Illness HPI 38-year-old male history of IV drug use, presents here with complaints of left forearm redness and pain. Patient had previous infections of his left hand and wrist. He has been seen by Dr. Solares, hand surgeon, who is had to take him to the operating room in the past to debride. He was concerned that he needed to be go to the operating room. I informed patient that given the presentation of his wound, he would not need an operating room at this time. Tetanus is up-to- date. PFSH Past Medical History Asthma: No Blood Disorders: No Depression: Yes Heart Rhythm Problems: No Cancer: No Cardiovascular Problems: No High Cholesterol: No Chemotherapy: No Chest Pain: No Congestive Heart Failure: No COPD: No Diabetes: No Diminished Hearing: No Endocrine: No Gastrointestinal Disorders: No Genitourinary: No Hepatitis: Yes (HEP C - completed Interferon Tx through per pt.) Hiatal Hernia: No Hypertension: Yes Immune Disorder: No Implanted Vascular Access Dvce: No Musculoskeletal: No Neurologic: No Psychiatric: No Reproductive: No Respiratory: No Integumentary: Yes Radiation Therapy: No Sleep Apnea: No Thyroid Disease: No Past Surgical History Abdominal Surgery: Yes (HERNIA REPAIR) Cardiac Surgery: No Ear Surgery: No Endocrine Surgery: No Eye Surgery: No Genitourinary Surgery: Yes (TESTICULAR TORSION REPAIR - age 14) Gynecologic Surgery: No Neurologic Surgery: No Oral Surgery: No Thoracic Surgery: No Other Surgery: Yes Social History Alcohol Use: Yes (4 beers daily, each beer is 24 ounces) Tobacco Use: Yes (1 PPD) Substance Use: Yes Allergies-Medications (Allergen,Severity, Reaction): Coded Allergies: No Known Allergies (Verified Allergy, Unknown, 03/26/18) Reported Meds & Prescriptions Reported Meds & Active Scripts Active Multiple Vitamin 1 Tab 1 Tab PO DAILY 30 Days Valtrex (Valacyclovir HCl) 500 Mg Tab 500 Mg PO Q8HR Reported Buspirone (Buspirone HCl) 5 Mg Tab 5 Mg PO BID Zoloft (Sertraline HCl) 100 Mg Tab 100 Mg PO DAILY Doxepin (Doxepin HCl) 150 Mg Cap 150 Mg PO DAILY Strattera (Atomoxetine HCl) 40 Mg Cap 40 Mg PO DAILY Keflex (Cephalexin) 500 Mg Cap 500 Mg PO Q8H Bactrim DS (Sulfamethoxazole-Trimethoprim) 800-160 Mg Tab 1 Tab PO BID Review of Systems Except as stated in HPI: all other systems reviewed are Neg General / Constitutional: No: Fever, Chills HENT: No: Headaches, Lightheadedness Cardiovascular: No: Chest Pain or Discomfort, Palpitations Respiratory: No: Cough, Shortness of Breath Gastrointestinal: No: Nausea, Vomiting Skin: Positive Lumps (Palpable vein just lateral to the erythematous area.), Positive Lesions (Redness and swelling to the left medial forearm. ) Physical Exam Narrative GENERAL: Well-nourished, well-developed patient. SKIN: Focused skin assessment warm/dry. HEAD: Normocephalic. EYES: No scleral icterus. No injection or drainage. MUSCULOSKELETAL: On examination of his left forearm, there is an erythematous mildly tender area roughly quarter size. There is no drainage noted. There was also what appeared phlebitis. NEUROLOGICAL: Awake and alert. Cranial nerves II through XII intact. Motor grossly within normal limits. Five out of 5 muscle strength in all muscle groups. Normal speech. Data Data Last Documented VS Vital Signs Date Time Temp Pulse Resp B/P (MAP) Pulse Ox O2 Delivery O2 Flow Rate FiO2 03/26/18 22:52 98.2 75 18 122/74 (90) 97 Orders Orders Lidocaine 1% Inj (Xylocaine 1% Inj) (03/26/18 23:15) MDM Medical Decision Making Medical Screen Exam Complete: Yes Emergency Medical Condition: Yes Differential Diagnosis Cellulitis versus abscess versus phlebitis Narrative Course This is a 38-year-old male with history of IV drug use, presents today with complaint of left forearm redness and abscess. Patient is at [facility] for detox. Patient states he last used in that left forearm 5 days ago. It has been successfully I&D by Alphonse Tong PA-C. Patient will be discharged with antibiotics and Motrin. He will also have cultures pending on the I&D. Diagnosis Primary Impression: Left forearm early abscess. Additional Impression: Left forearm phlebitis Additional Instructions: Keep wound clean and dry. Return if evidence of worsening infection. Med/Other Pt SpecificInfo: Prescription(s) given Disposition: 01 DISCHARGE HOME Condition: Stable Giuseppe Zarate MD Mar 26, 2018 23:53
[2018-03-27] MEDS ORDERED: VALA500T PO (00:03)
[2018-03-27] MEDS ORDERED: BACT800T5 PO (00:03)
[2018-03-27] MEDS ORDERED: CEPH500C PO (00:03)
== END 2018-03-27 00:33 | disposition home or self-care (01) ==
LOC: NEPE 22:45
DX: L02.414 Cutaneous abscess of left upper limb (principal); I80.8 Phlebitis and thrombophlebitis of other sites; F32.9 Major depressive disorder, single episode, unspecified; I10 Essential (primary) hypertension; F17.200 Nicotine dependence, unspecified, uncomplicated; Z86.19 Personal history of other infectious and parasitic diseases; Z79.899 Other long term (current) drug therapy
CPT/HCPCS: 10060; 87070; 87077